=== PATIENT | female | born 1955 | race Caucasian/White ===

== ENCOUNTER → 2017-02-05 | Outpatient (CLI) | payer OTHER ==
[2017-02-05 12:15] LABS: Appearance,Urine Clear (Clear); Bilirubin,Urine Negative (Negative); Glucose,Urine (UA) Negative (Negative); Ketones,Urine Negative (Negative); Leukocyte Esterase,Urine Negative (Negative); Nitrite,Urine Negative (Negative); PH, Urine 5.5 (5.0-8.0); Protein,Urine Negative (Negative); Specific Gravity,Urine 1.006 (1.001-1.035); UA Billing (MACRO vs. MICRO) CHEM; Urobilinogen,Urine <2.0 mg/dL (<2.0)
[2017-02-05 12:22] LABS: CH 28.7; CHCM 31.4; HCT 48.6 % (34.0-46.0); HGB 15.1 gm/dL (11.4-16.0); Hypochromasia Slight; MCH 28.7 pg (25.0-35.0); MCHC 31.2 g/dL (31.0-37.0); MCV 92.1 fL (80.0-100.0); Mean Platelet Volume 6.9; RBC 5.28 m/uL (3.80-5.40); RDW 14.2 % (11.5-15.5)
[2017-02-05 12:42] LABS: ALT 32 U/L (9-52); AST 26 U/L (14-36); Alkaline Phosphatase 108 U/L (38-126); Anion Gap 12 mmol/L; Blood Urea Nitrogen 15 mg/dL (7-17); Calcium 10.3 mg/dL (8.4-10.2); Carbon Dioxide 24 mmol/L (22-30); Chloride 106 mmol/L (98-107); Glucose 96 mg/dL (74-99); Non-African American GFR(MDRD) 50 (>60 ml/min/1.73 sqM); Potassium 5.3 mmol/L (3.5-5.1); Sodium 142 mmol/L (137-145); Total Bilirubin 0.5 mg/dL (0.2-1.3); Total Protein 7.8 g/dL (6.3-8.2)
== END | disposition home or self-care (01) ==
LOC: LABWHC1 10:49
PROVIDERS: ATTEND Orthopaedic Surgery
DX: Z01.812 Encounter for preprocedural laboratory examination (principal)
CPT/HCPCS: 80053; 81003; 85027; 85610; 85730; 87070

== ENCOUNTER 2017-02-20 10:21 | Inpatient (IN) | payer OTHER ==
[2017-02-12 14:25] VITALS: BMI 40.2
[~2017-02-20 10:21] MED LIST: ACETAMINOPHEN TAB 500 MG TAB PO ONE; DEXAMETHASONE SOD PHOSPHATE 10 MG/ML 1 ML VIAL IV ONE; MELOXICAM 7.5 MG TAB PO ONE; MIDAZOLAM 2 MG/2 ML VIAL IV PRN; MORPHINE SULFATE 4 MG/ML SYRINGE IV PRN; ONDANSETRON 4 MG/2 ML VIAL IVP ONE; TRANEXAMIC ACID 1,000 MG in SODIUM CHLORIDE 0.9% 100 ML IVPB ONE; ceFAZolin 2 GM in SODIUM CHLORIDE 0.9% 100 ML IVPB ONE
[2017-02-20] MEDS: LACTATED RINGERS 1,000 ML IV SCH (10:52)
[2017-02-20] MEDS ORDERED: LIDOCAINE 1% 20 ML VIAL (10MG/ML) FOR IV START SQ ONE (10:55)
[2017-02-20] MEDS ORDERED: HYDROmorphone 0.5 MG/0.5 ML SYRINGE IVP PRN ×2 (12:07)
[2017-02-20] MEDS ORDERED: MAGNESIUM HYDROXIDE 2,400 MG/10 ML CUP PO PRN (12:07)
[2017-02-20] MEDS ORDERED: NA PHOS,M-B/NA PHOS,DI-BA 133 ML ENEMA RECTAL PRN (12:07)
[2017-02-20] MEDS ORDERED: ONDANSETRON 4 MG/2 ML VIAL IVP PRN (12:07)
[2017-02-20] MEDS ORDERED: BISACODYL 10 MG SUPP RECTAL PRN (12:07)
[2017-02-20] MEDS ORDERED: hydrOXYzine PAMOATE 25 MG CAP PO PRN (12:07)
[2017-02-20] MEDS ORDERED: NALOXONE 0.4 MG/ML 1 ML VIAL IV PRN (12:07)
[2017-02-20] MEDS ORDERED: DIAZEPAM 5 MG TAB PO PRN ×2 (12:07)
[2017-02-20] MEDS ORDERED: ceFAZolin 3,000 MG in SODIUM CHLORIDE 0.9% IRRIGATIO 3,000 ML IRRIGATION ONE (12:31)
[2017-02-20] MEDS ORDERED: SODIUM CHLORIDE 0.9% 100 ML BAG ONE (12:31)
[2017-02-20] MEDS ORDERED: MIDAZOLAM 2 MG/2 ML VIAL ONE (12:31)
[2017-02-20] MEDS ORDERED: fentaNYL (PF) 50 MCG/ML 2 ML AMP ONE (12:31)
[2017-02-20] MEDS ORDERED: PROPOFOL 10 MG/ML 20 ML VIAL IV ONE (12:31)
[2017-02-20] MEDS ORDERED: LIDOCAINE 1% INJ 10MG/ML (20 ML MDV) ONE (12:31)
[2017-02-20] MEDS ORDERED: TRANEXAMIC ACID 1,000 MG/10 ML VIAL ONE (12:31)
[2017-02-20] MEDS: ROPIVACAINE 246.25 MG, EPINEPHrine 0.5 MG, KETOROLAC 30 MG, cloNIDine HCL/PF 80 MCG, WA... MISCELLANE ONE ×10 (12:40→13:37)
[2017-02-20] MEDS ORDERED: LACTATED RINGERS 1,000 ML IV ONE (13:33)
--- NOTE | 2017-02-20 14:09 | P.OP ---
Date of Procedure: 02/20/17 Preoperative Diagnosis: Severe osteoarthritis right knee Postoperative Diagnosis: Severe osteoarthritis right knee Procedure(s) Performed: Right total knee arthroplasty Implants: Nielson and Nephew Oxinium femoral component size 5, right posterior stabilized Nielson & Nephew Vesta II right nonporous tibial baseplate size 4 Nielson & Nephew size 11 mm Legion XLPE constrained articular insert, size 3-4 Nielson & Nephew Vesta II resurfacing patellar component, 32 mm All components were cemented using Deyvn bone cement.. The articulation is Oxinium on polyethylene. Anesthesia: spinal Surgeon: Berto Kc Cordwood Cutter #1: Yadi Gaitan Estimated Blood Loss (ml): 50 Pathology: other (Bone and cartilage) Condition: stable Disposition: PACU Indications for Procedure: After failure of conservative treatment we discussed the surgical and nonsurgical treatment options at length. Patient wishes to proceed with a total knee arthroplasty. Complications specific to this procedure were discussed at length, including but not limited to infection, bleeding, stiffness , and nerve injury. Patient is aware of all these complications and informed consent was obtained Operative Findings: The operative findings are consistent with severe osteoarthritis of the right knee Description of Procedure: Patient was seen in the preoperative area consent was reviewed and operative site was marked with a skin marker. Patient was then brought to the operating room and given preoperative antibiotics intravenously. A spinal anesthetic was administered by the anesthesia department. A tourniquet was placed on the upper thigh and the lower extremity was prepped and draped in usual sterile fashion. A gram of transexamic acid was given. A universal timeout was then performed which confirmed the patient's name, surgical site, ALLERGIES, and consent. The lower extremity was then exsanguinated and tourniquet was inflated to 250 mmHg. A standard and anterior midline approach to the knee was performed. The skin and subcutaneous tissue was dissected down to the patellar tendon. A medial parapatellar arthrotomy was then performed. The knee was then extended, the patellar was everted, and the knee was again flexed. Anterior horns of both menisci were excised, and a release was performed to the posterior medial aspect of the knee. On gross visual inspection, there was complete loss of articular cartilage in the medial and patellofemoral joint spaces. There was also significant cartilage damage in the lateral compartment. There were multiple periarticular osteophytes which were then removed with a Ronguer. The femoral canal was then opened with the appropriate drill, and the intramedullary femoral cutting guide was then placed and set for 4 of valgus. The distal femoral cutting block was then pinned in place, and the distal femur was then cut. The cutting block was then removed and the cut was checked for flatness. Next, the sizing guide was then placed and set for 3 external rotation based off of the epicondylar axis and Whitesides line. After the femur was sized, the appropriate 4-in-1 cutting block was then pinned in place. The anterior condyles were cut without notching. The posterior and chamfer cuts were performed while protecting the collateral ligaments. The cutting block was then removed, and the femoral canal was plugged with autologous bone. Attention was then directed to the tibia. The remaining ACL was removed with a Ronguer, and the tibia was then gently subluxed forward with a large bent knee retractor. Any remaining menisci was excised. The posterior lateral corner was cauterized in order to cauterize the lateral geniculate artery. The extra medullary tibial cutting guide was then placed, set for the appropriate rotation , slope, and depth of resection. The proximal tibia cutting guide was then pinned in place. Proximal tibia was then cut and sized. Next trials were then placed with the appropriate-sized insert. The knee was able to fully extend and flex to 120 and was stable throughout all range of motion. The knee was then extended, patella everted. Patella was then measured, and then using an osteotomy guide, the patella was cut at the appropriate level. The patella was then measured and drilled and the patella trial was then placed. The knee was then taken through range of motion with the patella trial and the patella tracked normally. The knee was then extended patella trial was then removed and the patella was everted. Knee was then flexed and lug holes were drilled through the femoral trial and the femoral trial was then removed. The tibial was then exposed, and the tibial broach guide was then pinned in place after it was set for the appropriate rotation to allow for the most coverage without overhang. The tibia was then reamed and broached. The cut surfaces of bone were then irrigated with pulsatile lavage. The posterior structures were injected with the ropivacaine solution. The knee was also irrigated with Irrisept solution. The components were then opened, the cement was mixed, and the components were then cemented in place. The cement was allowed to harden with the knee in full extension. While the cement was hardening, the remaining soft tissues were then injected with a ropivacaine solution, which consisted of 246.25 mg of ropivacaine, 0.5 mg of epinephrine, 30 mg of Toradol, 80 g of clonidine, and 48.45 mL of sterile water, for a total of 100 mL of fluid injected. After the cemented hardened. The tourniquet was released, and hemostasis was obtained. A second gram of transexamic acid was given. The knee was again irrigated. The knee was again taken through range of motion and found to be stable throughout all range of motion of 0-130 , and the patella tracked normally. The fascia was then closed with #2 strata fix suture. The subcutaneous tissue was closed with 3-0 Vicryl and 3-0 strata fix. Dermabond glue was used for the skin and placed with the knee in flexion. The patient was placed in a sterile silver Aquasol dressing. Patient was then transferred to recovery room in stable condition. The floral assistant RIOS Doaln was required due the complexity surgery and the need for a skilled surgical lead. She assisted in positioning, draping, retraction, and closure of the wound.
--- NOTE | 2017-02-20 14:54 | XR ---
EXAMINATION TYPE: XR knee limited RT DATE OF EXAM: 02/20/2017 COMPARISON: NONE TECHNIQUE: Two views submitted HISTORY: Post op FINDINGS: There is a prosthetic knee in near anatomic alignment. There is soft tissue edema and emphysema. IMPRESSION: 1. Postoperative change. Appears in near-anatomic alignment
[2017-02-20] MEDS: ceFAZolin 2 GM in SODIUM CHLORIDE 0.9% 100 ML IVPB SCH (17:51)
[2017-02-20] MEDS ORDERED: MAG HYDROX/AL HYDROX/SIMETH 30 ML CUP PO PRN (20:02)
[2017-02-20] MEDS: ASPIRIN 325 MG TAB PO SCH (20:52)
[2017-02-20] MEDS: SENNOSIDES-DOCUSATE SODIUM 1 EACH TAB PO SCH (20:53)
[2017-02-20] MEDS: HYDROcodone/APAP 5-325MG 1 EACH TAB PO PRN (21:29)
[2017-02-21] MEDS: ceFAZolin 2 GM in SODIUM CHLORIDE 0.9% 100 ML IVPB SCH (01:13)
[2017-02-21] MEDS: HYDROcodone/APAP 5-325MG 1 EACH TAB PO PRN ×5 (02:44→21:03)
[2017-02-21] MEDS ORDERED: SODIUM CHLORIDE 0.9% 1,000 ML BAG ONE (03:30)
--- NOTE | 2017-02-21 06:46 | CONS ---
CONSULTATION DATE OF CONSULTATION: 02/20/2017 REASON FOR CONSULTATION: Medical management requested by Dr. Saenz. CONSULTATION: This is a pleasant 61-year-old patient of Dr. Saenz. Has undergone a right total knee arthroplasty. Pain is controlled. No nausea or vomiting. No chest pain. Sitting up. Chronic stable medical conditions include osteoarthritis, hypertension, GERD. REVIEW OF SYSTEMS: CONSTITUTIONAL: None. HEENT: None. RESPIRATORY: None. CARDIOVASCULAR: None. GASTROINTESTINAL: Heartburn. GENITOURINARY: None. MUSCULOSKELETAL: Pain in different joints. DERMATOLOGICAL: None. HEMATOLOGIC: None. LYMPHATIC: None. PSYCHIATRY: None. NEUROLOGICAL: None. PAST MEDICAL HISTORY: GERD, hypertension, osteoarthritis. PAST SURGICAL HISTORY: Tonsillectomy, tubal ligation, ganglion cyst removed. SOCIAL HISTORY: Does not smoke or drink alcohol. Lives with her daughter. FAMILY HISTORY: Family history of stroke, hyperlipidemia. HOME MEDICATIONS: 1. Ultram 25 to 50 mg q.6 p.r.n. 2. Norvasc 10 mg p.o. daily. 3. Flexeril 10 mg p.o. t.i.d. p.r.n. 4. Ibuprofen 800 mg p.o. t.i.d. p.r.n. ALLERGIES: None. PHYSICAL EXAMINATION: On examination, afebrile, pulse 78, blood pressure 120/66, pulse ox 94% on room air, respirations 16. GENERAL APPEARANCE: Well built, BMI 40.2, sitting up, comfortable. EYES: Pupils equal. Conjunctivae normal. HENT: Oral cavity normal. NECK: JVD not raised. Mass not palpable. RESPIRATORY: Effort normal. Lungs are clear. CARDIOVASCULAR: First and second sounds are normal. No edema. ABDOMEN: Soft, nontender. Liver and spleen not palpable. LYMPHATIC: No lymph node palpable of the neck or axillae. PSYCHIATRY: Alert and oriented x3. Mood and affect normal. NEUROLOGICAL: Pupils equal. Cranial nerves grossly intact. Power and sensation grossly intact. EXTREMITIES: Right knee in a dressing. INVESTIGATIONS: Potassium 4.1. ASSESSMENT: 1. Right total knee arthroplasty. 2. Morbid obesity, body mass index 40.2. 3. Gastroesophageal reflux disease. 4. Essential hypertension. 5. Primary osteoarthritis. PLAN: Patient's Norvasc to be resumed. Keep a close eye on the blood pressure. For DVT prophylaxis, patient is on aspirin 325 twice a day per Dr. Saenz. The patient should see a dietitian when she leaves from the hospital. Care was discussed with the patient. Should follow up with Dr. Saenz on discharge. Thank you Dr. Kc. GUILLERMINA / DOMINICK: [id number] /
[2017-02-21 07:40] LABS: Basophils % (A) 0 %; CH 29.9; CHCM 32.5; Eosinophils % (A) 0 %; HDW 2.55; Luc # (Auto) 0.11; Luc % (Auto) 1; Lymphocytes % (A) 7 %; MCH 28.8 pg (25.0-35.0); MCHC 31.1 g/dL (31.0-37.0); MCV 92.6 fL (80.0-100.0); Mean Platelet Volume 7.1; Monocytes # (A) 0.8 k/uL (0-1.0); Monocytes % (A) 6 %; Neutrophils # (A) 11.7 k/uL (1.3-7.7); Neutrophils % (A) 86 %; RBC 4.21 m/uL (3.80-5.40); WBC 13.5 k/uL (3.8-10.6)
[2017-02-21 07:48] LABS: HGB 12.1 gm/dL (11.4-16.0)
[2017-02-21] MEDS: MELOXICAM 7.5 MG TAB PO SCH (08:09)
[2017-02-21] MEDS: ASPIRIN 325 MG TAB PO SCH ×2 (08:09→20:56)
[2017-02-21] MEDS: LACTATED RINGERS 1,000 ML IV SCH (08:10)
[2017-02-21] MEDS: SODIUM CHLORIDE 0.9% 1,000 ML IV SCH ×3 (08:10→20:56)
--- NOTE | 2017-02-21 09:47 | P.PN ---
Subjective Progress Note Date: 02/21/17 This is a pleasant 61-year-old female who is status post right total knee arthroplasty. This is postoperative day #1. Patient is seen and evaluated at bedside with Dr. Berto Kc. Patient does complain of pain to the right knee as expected but states this is tolerable. Patient has not been out of bed with physical therapy yet. Patient has no further complaints. Objective - Vital Signs Vital signs: Vital Signs Temp 97.6 F 02/21/17 07:00 Pulse 78 02/21/17 07:00 Resp 16 02/21/17 01:25 BP 131/75 02/21/17 07:00 Pulse Ox 96 02/21/17 07:00 Intake & Output 02/20/17 02/21/17 02/21/17 18:59 06:59 18:59 Intake Total 1251 1050 Output Total 50 Balance 1201 1050 Intake: IV 1251 Intake, IV Titration 1050 Amount Sodium Chloride 0.9% 1, 1050 000 ml @ 70 mls/hr IV . [id number] CRISTOBAL Rx#:[id number] Output: Estimated Blood Loss 50 Other: # Voids 3 - Exam Vital signs are stable. Patient is in no acute distress and is alert and oriented 3. Calf is soft and nontender. Dressing is clean, dry, and intact. Neurovascular status intact. Patient has full foot and ankle motion. - Labs CBC & Chem 7: 02/21/17 06:46 02/20/17 10:50 Labs: Abnormal Lab Results - Last 24 Hours (Table) 02/21/17 Range/Units 06:46 WBC 13.5 H (3.8-10.6) k/uL Neutrophils # 11.7 H (1.3-7.7) k/uL Assessment and Plan (1) Primary osteoarthritis of right knee Current Visit: Yes Status: Acute Code(s): M17.11 - UNILATERAL PRIMARY OSTEOARTHRITIS, RIGHT KNEE SNOMED Code(s): 978205359 (2) S/P total knee arthroplasty Current Visit: Yes Status: Acute Code(s): Z96.659 - PRESENCE OF UNSPECIFIED ARTIFICIAL KNEE JOINT SNOMED Code(s): 2248818670783 Plan: #1 Continue with routine postoperative care. Leave dressing in place x 7days. #2 Anticoagulation with aspirin. #3 Physical therapy and CPM today. #4 Appreciate input from medicine. #5 Anticipate discharge to rehab Sunday.
--- NOTE | 2017-02-21 12:37 | PN ---
PROGRESS NOTE DATE OF SERVICE: 02/21/2017 PRESENTING COMPLAINT: Right knee surgery. INTERVAL HISTORY: Patient is status post right knee surgery. Having some pain. No nausea or vomiting, did tolerate her breakfast. Did work with physical therapy. No new issues. REVIEW OF SYSTEMS: Done for constitutional, cardiovascular, GI, pulmonary, musculoskeletal; relevant findings as above. CURRENT MEDICATIONS: Reviewed that include aspirin 325 b.i.d. for DVT prophylaxis. PHYSICAL EXAMINATION: Temperature 97.6, pulse 70 respiration 16, blood pressure 131/75, pulse ox 96% on room air. GENERAL APPEARANCE: Sitting up in a chair, comfortable, smiling. EYES: Pupils equal, conjunctivae normal. NECK: JVD not raised. Mass not palpable. Respiratory effort normal. Lungs are clear. CARDIOVASCULAR: First and second sounds normal, no edema. ABDOMEN: Soft, nontender. Liver and spleen not palpable. PSYCHIATRY: Alert and oriented x3. Mood and affect normal. EXTREMITIES: Right knee in a dressing. INVESTIGATIONS: White count 13.5, hemoglobin 12.1. ASSESSMENT: 1. Right total knee arthroplasty. 2. Morbid obesity, body mass index of 40.2. 3. Gastroesophageal reflux disease. 4. Essential hypertension. 5. Primary osteoarthritis. PLAN: The patient is stable. Care was discussed with her. Has slight leukocytosis, likely reactive from surgery. No clinical evidence of infection. Incision is healing well per Surgery. Thank you, Dr. Kc. GUILLERMINA / DOMINICK: [id number] /
[2017-02-21] MEDS: amLODIPine 10 MG TAB PO SCH (14:41)
[2017-02-21] MEDS: SENNOSIDES-DOCUSATE SODIUM 1 EACH TAB PO SCH (20:55)
[2017-02-22] MEDS: HYDROcodone/APAP 5-325MG 1 EACH TAB PO PRN ×4 (05:15→22:03)
[2017-02-22] MEDS: LACTATED RINGERS 1,000 ML IV SCH (06:15)
[2017-02-22] MEDS: SODIUM CHLORIDE 0.9% 1,000 ML IV SCH ×2 (08:28→22:07)
[2017-02-22] MEDS: ASPIRIN 325 MG TAB PO SCH ×2 (08:29→22:03)
[2017-02-22] MEDS: MELOXICAM 7.5 MG TAB PO SCH (08:30)
[2017-02-22] MEDS: amLODIPine 10 MG TAB PO SCH (08:30)
--- NOTE | 2017-02-22 08:51 | P.PN ---
Subjective Progress Note Date: 02/22/17 This is a pleasant 61-year-old female who is status post right total knee arthroplasty. This is postoperative day #2. Patient states she has been up and walking with physical therapy today. Patient states she does have pain to the right knee but this is controlled with her pain medication. Patient complains of a sore throat and mild cough today. Patient denies any fever/ chills, numbness, weakness, tingling. Objective - Vital Signs Vital signs: Vital Signs Temp 97.5 F L 02/22/17 07:00 Pulse 69 02/22/17 07:00 Resp 16 02/22/17 07:00 BP 127/75 02/22/17 07:00 Pulse Ox 97 02/22/17 07:00 Intake & Output 02/21/17 02/22/17 02/22/17 18:59 06:59 18:59 Intake Total 480 200 Balance 480 200 Intake: Oral 480 200 Other: # Voids 2 3 1 - Exam Vital signs are stable. Patient is in no acute distress and is alert and oriented 3. Calf is soft and nontender. Dressing is clean, dry, and intact. Neurovascular status intact. Patient has full foot and ankle motion. - Labs CBC & Chem 7: 02/21/17 06:46 02/20/17 10:50 Assessment and Plan (1) Primary osteoarthritis of right knee Current Visit: Yes Status: Acute Code(s): M17.11 - UNILATERAL PRIMARY OSTEOARTHRITIS, RIGHT KNEE SNOMED Code(s): 193638228 (2) S/P total knee arthroplasty Current Visit: Yes Status: Acute Code(s): Z96.659 - PRESENCE OF UNSPECIFIED ARTIFICIAL KNEE JOINT SNOMED Code(s): 2442797751103 Plan: #1 Continue with routine postoperative care. Leave dressing in place x 7days. #2 Anticoagulation with aspirin. #3 Physical therapy and CPM today. #4 Appreciate input from medicine. #5 Anticipate discharge to rehab Sunday.
--- NOTE | 2017-02-22 19:35 | PN ---
PROGRESS NOTE DATE OF SERVICE: 02/22/2017 PRESENTING COMPLAINT: Right knee surgery. INTERVAL HISTORY: Patient status post right knee surgery. Doing better. Sitting up. A bit of a sore throat. No sputum production. No fever. Did work with physical therapy. REVIEW OF SYSTEMS: Done for constitutional, cardiovascular, GI, pulmonary, musculoskeletal; relevant findings as above. CURRENT MEDICATIONS: Reviewed. PHYSICAL EXAMINATION: Temperature 97.5, pulse 59, respirations 16, blood pressure 127/75, pulse ox 97% room air. GENERAL APPEARANCE: Sitting up comfortable. EYES: Pupils are equal. Conjunctivae normal. NECK: JVD not raised. Mass not palpable. RESPIRATORY: Effort normal. Lungs are clear. CARDIOVASCULAR: First and second sounds normal. No edema. ABDOMEN: Soft, nontender. Liver and spleen not palpable. Right knee in a dressing. INVESTIGATIONS: No blood work from today. ASSESSMENT: 1. Right total knee arthroplasty. 2. Morbid obesity, BMI 40.2. 3. Gastroesophageal reflux disease. 4. Essential hypertension. 5. Primary osteoarthritis. 6. Possibly mild viral laryngitis. PLAN: Patient doing well. Care was discussed with the patient. Told her to do salt water gargle and drink warm liquids like tea and coffee. Clinically patient otherwise doing well. MMODL / IJN: [id number] /
[2017-02-22] MEDS: SENNOSIDES-DOCUSATE SODIUM 1 EACH TAB PO SCH (22:03)
[2017-02-23] MEDS: LACTATED RINGERS 1,000 ML IV SCH (02:15)
[2017-02-23 02:41] VITALS: RESP 16
[2017-02-23] MEDS: HYDROcodone/APAP 5-325MG 1 EACH TAB PO PRN ×2 (06:06→12:39)
[2017-02-23 07:43] LABS: Basophils % (A) 0 %; CH 29.8; Eosinophils # (A) 0.2 k/uL (0-0.7); Eosinophils % (A) 2 %; HDW 2.52; HGB 11.8 gm/dL (11.4-16.0); Luc # (Auto) 0.15; Luc % (Auto) 1; Lymphocytes # (A) 1.6 k/uL (1.0-4.8); Lymphocytes % (A) 15 %; MCH 29.2 pg (25.0-35.0); MCHC 31.2 g/dL (31.0-37.0); MCV 93.6 fL (80.0-100.0); Mean Platelet Volume 7.3; Monocytes # (A) 0.8 k/uL (0-1.0); Monocytes % (A) 8 %; Neutrophils # (A) 8.2 k/uL (1.3-7.7); Neutrophils % (A) 74 %; RBC 4.06 m/uL (3.80-5.40); RDW 15.1 % (11.5-15.5); WBC 11.1 k/uL (3.8-10.6); WBC (Perox) 11.43
[2017-02-23 07:46] VITALS: BP 115/69; PULSE 72; TEMP 97.5
--- NOTE | 2017-02-23 08:17 | P.DS ---
Providers Date of admission: 02/20/17 10:21 Expected date of discharge: 02/23/17 Attending physician: Berto Kc Consults: 02/20/17 12:07 Consult Physician Routine Consulting Provider: Marco Pfeiffer Consult Reason/Comments: medical management Do you want consulting provider notified?: Yes Primary care physician: Porfirio Saenz - Discharge Diagnosis(es) (1) Primary osteoarthritis of right knee Current Visit: Yes Status: Acute (2) S/P total knee arthroplasty Current Visit: Yes Status: Acute Hospital Course: This is a 61-year-old female with known history of degenerative arthritis of the right knee. The patient presents for evaluation. After discussion and consideration patient elects to proceed with total knee arthroplasty. The patient is seen preoperatively by Dr. Kc and cleared for surgery. Patient is admitted to [facility] on 02/20/2017 for total knee arthroplasty. The procedures performed without complication or sequelae. The patient is doing well postoperatively. Labs and vital signs are stable on day of discharge. On day of discharge patient's knee incision is healing well. There is minimal erythema. There is no drainage noted at this time. There is minimal soft tissue swelling to the knee. Patient has full foot and ankle motion without difficulty or pain. Neurovascular status to the right lower extremity is intact. Patient is discharged to rehab in good condition. Please see med rec for accurate list of home medications. Plan - Discharge Summary New Discharge Prescriptions: New Aspirin 325 mg PO BID #60 tab HYDROcodone/APAP 5-325MG [[place] 5-325] 1 - 2 tab PO Q4-6H PRN #90 tab PRN Reason: Pain Sennosides-Docusate Sodium [Senokot-S] 1 tab PO BID #60 tablet No Action traMADol HCL [Ultram] 25 - 50 mg PO Q6HR PRN PRN Reason: Pain Cyclobenzaprine [Flexeril] 10 mg PO TID PRN PRN Reason: Pain amLODIPine [Norvasc] 10 mg PO QAM Ibuprofen 800 mg PO TID PRN PRN Reason: Pain Discharge Medication List Cyclobenzaprine [Flexeril] 10 mg PO TID PRN 02/12/17 [History] Ibuprofen 800 mg PO TID PRN 02/12/17 [History] amLODIPine [Norvasc] 10 mg PO QAM 02/12/17 [History] traMADol HCL [Ultram] 25 - 50 mg PO Q6HR PRN 02/12/17 [History] Aspirin 325 mg PO BID #60 tab 02/23/17 [Rx] HYDROcodone/APAP 5-325MG [[place] 5-325] 1 - 2 tab PO Q4-6H PRN #90 tab 02/23/17 [ Rx] Sennosides-Docusate Sodium [Senokot-S] 1 tab PO BID #60 tablet 02/23/17 [Rx] Follow up Appointment(s)/Referral(s): Berto Kc DO [Doctor of Osteopathic Medicine] - 2 Weeks Ambulatory/Diagnostic Orders: Continuous Passive Motion (CPM) Machine [DME.AMB1] Time Frame: 3 Weeks, Location : Determined By Patient Activity/Diet/Wound Care/Special Instructions: Weightbearing as tolerated with a walker CPM 5-6h daily Leave dressing intact. May be removed by home care nurse on 02/27/2017. May shower with dressing on. [facility] with questions or concerns [phone] Discharge Disposition: TRANSFER TO SNF/ECF
[2017-02-23] MEDS: MELOXICAM 7.5 MG TAB PO SCH (09:03)
[2017-02-23] MEDS: ASPIRIN 325 MG TAB PO SCH (09:03)
[2017-02-23] MEDS: SODIUM CHLORIDE 0.9% 1,000 ML IV SCH (09:04)
[2017-02-23] MEDS: amLODIPine 10 MG TAB PO SCH (09:05)
--- NOTE | 2017-02-23 22:47 | PN ---
PROGRESS NOTE DATE OF SERVICE: 02/23/2017 PRESENT COMPLAINT: Right knee surgery. INTERVAL HISTORY: The patient is status post right knee surgery, stable. Sore throat is improving. No nausea, vomiting. Did work with Physical Therapy. Tolerating a diet. REVIEW OF SYSTEMS: Done for constitutional, cardiovascular, GI, pulmonary, musculoskeletal; relevant findings as above. CURRENT MEDICATIONS: Reviewed. PHYSICAL EXAMINATION: Temperature 97.5, pulse 72, respirations 16, blood pressure 115/69, pulse ox 98% on room air. GENERAL APPEARANCE: Sitting up, comfortable. EYES: Pupils equal. Conjunctivae normal. NECK: JVD not raised. Mass not palpable. RESPIRATORY: Effort normal. Lungs are clear. CARDIOVASCULAR: First and second sounds normal. No edema. ABDOMEN: Soft, nontender. Liver and spleen not palpable. PSYCHIATRY: Alert and oriented x3. Mood and affect are normal. INVESTIGATIONS: White count 11.1, hemoglobin 11.8. ASSESSMENT: 1. Right total knee arthroplasty. 2. Morbid obesity, body mass index of 40.2. 3. Gastroesophageal reflux disease. 4. Essential hypertension. 5. Primary osteoarthritis. 6. Mild viral laryngitis, improving. PLAN: Care was discussed with the patient. Stable for discharge. MMODL / IJN: [id number] /
== END 2017-02-23 12:45 | DRG 470 ==
LOC: 2ORMAIN 10:21 → 3SUR 14:33
PROVIDERS: ADMIT Orthopaedic Surgery; ATTEND Orthopaedic Surgery
PROC: 0SRC0J9 Replacement of Right Knee Joint with Synthetic Substitute, Cemented, Open Approach (ICD-10-PCS; principal; 2017-02-20 12:00)
DX: M17.11 Unilateral primary osteoarthritis, right knee (principal); I10 Essential (primary) hypertension; E66.01 Morbid (severe) obesity due to excess calories; J04.0 Acute laryngitis; B97.89 Other viral agents as the cause of diseases classified elsewhere; K21.9 Gastro-esophageal reflux disease without esophagitis; Z68.41 Body mass index [BMI] 40.0-44.9, adult; Z79.899 Other long term (current) drug therapy; Z82.49 Family history of ischemic heart disease and other diseases of the circulatory system
CPT/HCPCS: 84132; 85025; 88300

== ENCOUNTER 2021-01-09 02:17 | Inpatient (IN) | payer MEDICARE, OTHER ==
[2021-01-09] MEDS ORDERED: IV FLUID CONTINUATION 1,000 ML IV ONE (02:20)
[2021-01-09] MEDS ORDERED: HEPARIN SODIUM 1,000 UN/ML (10ML VL) ONE (02:24)
[2021-01-09] MEDS ORDERED: LIDOCAINE 1% INJ 10MG/ML (20 ML MDV) ONE (02:24)
[2021-01-09] MEDS ORDERED: LIDOCAINE 1% INJ 10MG/ML (20 ML MDV) SQ ONE (02:26)
[2021-01-09] MEDS ORDERED: MIDAZOLAM 2 MG/2 ML VIAL IV ONE (02:27)
[2021-01-09] MEDS: NITROGLYCERIN 1000MCG/10ML SYRINGE INTRACORON ONE ×2 (02:40→02:51)
[2021-01-09] MEDS ORDERED: niCARdipine 25 MG/10 ML VIAL ONE (02:47)
[2021-01-09] MEDS ORDERED: CLOPIDOGREL 75 MG TAB ONE (02:50)
[2021-01-09] MEDS: niCARdipine Syringe (1,000 mcg/10 mL) INTRACORON ONE ×2 (02:51→03:03)
[2021-01-09] MEDS ORDERED: CLOPIDOGREL 75 MG TAB PO ONE (02:51)
[2021-01-09] MEDS ORDERED: ATROPINE SULFATE 0.1 MG/ML 10ML SYRINGE IV ONE (03:01)
[2021-01-09] MEDS ORDERED: IOPAMIDOL-370 125ML BTL INJ ONE (03:04)
[2021-01-09] MEDS ORDERED: RX INFO: IV CONTRAST WAS GIVEN 1 EACH MISC MISCELLANE PRN (03:11)
[2021-01-09] MEDS ORDERED: MAG HYDROX/AL HYDROX/SIMETH 30 ML CUP PO PRN (03:11)
[2021-01-09] MEDS ORDERED: NITROGLYCERIN SL TABS 0.4 MG TAB SUBLINGUAL PRN (03:11)
[2021-01-09] MEDS ORDERED: ZOLPIDEM 5 MG TAB PO PRN (03:11)
[2021-01-09] MEDS ORDERED: ATROPINE SULFATE 0.1 MG/ML 10ML SYRINGE IV PRN (03:11)
[2021-01-09] MEDS ORDERED: SODIUM CHLORIDE 0.9% 1,000 ML IV SCH (03:15)
--- NOTE | 2021-01-09 03:16 | P.CRDCN ---
History of Present Illness Consult date: 01/09/21 Chief complaint: Chest pain History of present illness: This is a very pleasant 65-year-old female patient with a past medical history significant for hypertension and dyslipidemia who presented initially to [facility] with a chest discomfort started 2 hours before and was diagnosed with acute inferior ST elevation myocardial infarction. Subsequently the patient was transferred to [facility] where she underwent an em ergent heart catheterization and was found to have mild disease involving the left coronary system with subtotally occluded distal right coronary artery. She underwent successful stenting of the right coronary artery using two drug- eluting stents with a good angiographic results. The patient was chest pain- free by the end of the procedure with minimal ST segment deviation. The patient does have risk factors including hypertension and dyslipidemia. She has history of smoking in the past but she quit long time ago. No family history of premature CAD. The procedure was performed from the right groin. The patient is going to be admitted to the intensive care unit and she will be on dual antiplatelet therapy along with high intensity statin. Beta josseline would be on hold at this point in view of the bradycardia with a resting heart rate in the 50s. She will be started on small dose of DAMARIS inhibitor as well in view of the margin the low blood pressure. An echocardiogram would be performed as well to assess LV function. We'll continue following up with the patient. Past Medical History Past Medical History: GERD/Reflux, Hypertension, Skin Disorder Additional Past Medical History / Comment(s): digenerative disc disease,HR skips a beat occas,blisterlike areas scattered that itch. History of Any Multi-Drug Resistant Organisms: None Reported Past Surgical History: Tonsillectomy, Tubal Ligation Additional Past Surgical History / Comment(s): ganglion cyst removed lt hand Past Anesthesia/Blood Transfusion Reactions: No Reported Reaction Additional Past Anesthesia/Blood Transfusion Reaction / Comment(s): no hx blood transfusion Past Psychological History: No Psychological Hx Reported Past Alcohol Use History: None Reported Past Drug Use History: None Reported - Past Family History Mother Family Medical History: CVA/TIA, Hyperlipidemia Father Family Medical History: No Reported History Medications and Allergies Home Medications Medication Instructions Recorded Confirmed Type Cyclobenzaprine [Flexeril] 10 mg PO TID PRN 02/12/17 02/20/17 History Ibuprofen 800 mg PO TID PRN 02/12/17 02/20/17 History amLODIPine [Norvasc] 10 mg PO QAM 02/12/17 02/20/17 History traMADol HCL [Ultram] 25 - 50 mg PO Q6HR PRN 02/12/17 02/20/17 History Aspirin 325 mg PO BID #60 tab 02/23/17 Rx HYDROcodone/APAP 5-325MG [[place] 1 - 2 tab PO Q4-6H PRN #90 tab 02/23/17 Rx 5-325] Sennosides-Docusate Sodium 1 tab PO BID #60 tablet 02/23/17 Rx [Senokot-S] Allergies Allergy/AdvReac Type Severity Reaction Status Date / Time No Known Allergies Allergy Verified 02/12/17 13:56 Physical Exam Vitals: Intake and Output 01/08/21 01/08/21 01/09/21 14:59 22:59 06:59 Intake Total 500 Balance 500 Intake: IV 500 Other: Weight 106.594 kg - Constitutional General appearance: no acute distress - Respiratory Respiratory: bilateral: CTA - Cardiovascular Rhythm: regular Heart sounds: normal: S1, S2 Abnormal Heart Sounds: systolic murmur Results Intake and Output 01/08/21 01/08/21 01/09/21 14:59 22:59 06:59 Intake Total 500 Balance 500 Intake: IV 500 Other: Weight 106.594 kg Patient Weight 01/09/21 06:59 Weight 106.594 kg Assessment and Plan Assessment: Assessment #[address] elevation myocardial infarction #2 status post PCI of the RCA #3 hypertension #4 dyslipidemia Plan #1 the patient will be admitted to intensive care unit #2 dual antiplatelet therapy #3 high intensity statin #4 an echocardiogram #5 standard groin care #6 follow-up with the patient
[2021-01-09 03:38] LABS: Glucose,Whole Blood 126 mg/dL (75-99)
--- NOTE | 2021-01-09 08:19 | CC ---
CARDIAC CATHETERIZATION REPORT DATE OF SERVICE: January 09, 2021. PERFORMING PHYSICIAN: Ten Jauregui MD. PROCEDURE PERFORMED: 1. Selective right and left coronary angiogram. 2. Left heart catheterization. 3. Successful stenting of the distal right coronary artery using 3.5 x 23 and 3.0 x 15 mm Xience drug-eluting stent with an excellent angiographic results. 4. Aspiration thrombectomy from the right coronary artery. 5. Selective right common femoral artery angiogram. 6. Hemostasis of the right groin using the Angio-Seal device. INDICATION: This is a 65-year-old female patient who sees Dr. Martinez in the office regularly with history of hypertension and dyslipidemia who was brought to the hospital with chest discomfort and was diagnosed with acute inferior ST-elevation myocardial infarction. COMPLICATION: None. LEVEL OF SEDATION: Moderate with sedation length of 40 minutes. Door to door to balloon was 82 minutes. APPROACH: Right common femoral artery. PROCEDURE DESCRIPTION: After obtaining informed consent, the patient was brought to the cardiac pathology laboratory aide. The right common femoral artery was cannulated using micropuncture technique, the micropuncture wire passed easily. Then I placed a 6-Romanian sheath 11 cm at the right common femoral artery. Selective left and right coronary angiogram achieved with JL4 diagnostic catheter and JR4 guiding catheter. After that I did left heart catheterization using the JR4 catheter which crossed the aortic valve then I did pullback across the valve. After that, I did intervene on the right coronary artery. Please see a separate paragraph for that. SELECTIVE CORONARY ANGIOGRAM: 1. The left main is angiographically normal. It bifurcates into LCX and LAD. 2. The LCX is a large caliber vessel. It is a nondominant vessel. The LCX is angiographically normal and gives rise into a large OM branch which appeared to be angiographically normal. 3. The LAD: The proximal LAD is angiographically normal. The mid LAD is normal and gives rise into a large diagonal branch which bifurcates into 2 subtle branches and appeared to be angiographically normal. The LAD distally is normal and becomes tortuous. 4. The right coronary artery has a critical lesion distally appeared to be in the range of 99.9%. HEMODYNAMICS: The LVEDP was 21 mmHg without significant gradient across aortic valve. PCI OF THE RCA: Anticoagulation was achieved using heparin with continuous ACT monitoring throughout the procedure. After that, I did engage the RCA using JR4 guide. I did wire it using a run-through wire. Balloon angioplasty initially achieved using 3.0 x 15 mm balloon. Subsequently, I deployed 3.5 x 23 mm Xience drug-eluting stent where the stent was positioned under fluoroscopy guidance and deployed under its nominal pressure. The following angiogram showed an area distal to the stent seems to be tight and I decided to cover that with a stent. So I deployed the 3.0 x 15 mm Xience drug-eluting stent just distal to the first stent with about 2 mm overlap between the 2 stents. The second stent was deployed under its nominal pressure as well. Then the area of overlap between the 2 stents was dilated using the stent balloon. The following angiogram showed sluggish flow in the RCA with about DEBI 2 to DEBI 1 flow. There was some concerning thrombus there and because of that I decided to do aspiration thrombectomy. I did use the export catheter and I was able to advance the catheter all the way to the distal right coronary artery and I did 1 run of aspiration thrombectomy and I was able to extract some white thrombus. I gave nicardipine as well and with that the flow was better. After that, I post dilated the first stent using 4.0 mm stent. The final angiogram showed good angiographic results and the procedure was completed without any complication. CONCLUSION: 1. Acute inferoposterior ST-elevation myocardial infarction. 2. Critical disease involving the distal right coronary artery, successful stenting of the distal right coronary artery was performed with good angiographic results. 3. Mild disease involving the left coronary system. 4. Elevated LVEDP. POSTPROCEDURE MANAGEMENT: 1. Dual anti-platelet therapy. 2. High intensity statin. 3. Hold on beta josseline because of the bradycardia. 4. An echocardiogram to establish LV function. 5. ICU admission. 6. Follow up with the patient. MMODL / IJN: [id number] /
[2021-01-09] MEDS: ASPIRIN 81 MG PO SCH (09:35)
[2021-01-09 10:31] LABS: Basophils # (A) 0.1 k/uL (0-0.2); Basophils % (A) 0 %; Eosinophils # (A) 0.1 k/uL (0-0.7); Eosinophils % (A) 1 %; HCT 43.1 % (34.0-46.0); HGB 14.5 gm/dL (11.4-16.0); Lymphocytes # (A) 0.9 k/uL (1.0-4.8); Lymphocytes % (A) 7 %; MCHC 33.6 g/dL (31.0-37.0); MCV 89.4 fL (80.0-100.0); Mean Platelet Volume 7.3; Monocytes # (A) 0.6 k/uL (0-1.0); Monocytes % (A) 5 %; Neutrophils # (A) 10.6 k/uL (1.3-7.7); Neutrophils % (A) 86 %; Platelet Count 258 k/uL (150-450); RBC 4.83 m/uL (3.80-5.40); WBC 12.4 k/uL (3.8-10.6)
[2021-01-09 10:32] LABS: African American GFR (CKD) >90 (>60 ml/min/1.73 sqM); Anion Gap 7 mmol/L; Blood Urea Nitrogen 17 mg/dL (7-17); Calcium 9.3 mg/dL (8.4-10.2); Carbon Dioxide 26 mmol/L (22-30); Chloride 100 mmol/L (98-107); Glucose 123 mg/dL (74-99); Magnesium 2.3 mg/dL (1.6-2.3); Non-African American GFR(CKD) 85 (>60 ml/min/1.73 sqM); Potassium 4.2 mmol/L (3.5-5.1); Sodium 133 mmol/L (137-145)
[2021-01-09] MEDS ORDERED: ATORVASTATIN 80 MG TAB PO SCH (21:00)
[2021-01-10 04:00] LABS: HCT 37.3 % (34.0-46.0); MCH 30.9 pg (25.0-35.0); MCHC 34.7 g/dL (31.0-37.0); Mean Platelet Volume 7.3; Platelet Count 229 k/uL (150-450)
[2021-01-10 04:06] LABS: Total Bilirubin 0.6 mg/dL (0.2-1.3)
[2021-01-10 04:19] LABS: Albumin 3.3 g/dL (3.5-5.0); Potassium 4.3 mmol/L (3.5-5.1)
--- NOTE | 2021-01-10 07:55 | P.PN ---
Subjective Progress Note Date: 01/10/21 Principal diagnosis: Acute coronary syndrome This is a pleasant 65-year-old female patient who was brought to the hospital with a chest discomfort and acute inferior ST patient myocardial infarction but she underwent an emergent heart catheterization and stenting of the RCA. She was found to have mild disease involving the left coronary system. The patient was seen today. She is asymptomatic from a cardiovascular standpoint. She has been maintaining sinus rhythm with sinus bradycardia and heart rate in the 50s. She is not on any AV mk josseline agent. The right groin is soft and nontender and without any bruises. Blood work was reviewed and showed mildly elevated liver function test and for that reason I'm going to decrease the dose of atorvastatin from 80 mg daily to 40 mg by mouth daily. The echocardiogram still pending. From the cardiac standpoint of view, the patient can be transferred to selective unit for possible discharge in the next 24 hours. Objective - Vital Signs Vital signs: Vital Signs Temp 97.8 F 01/10/21 04:00 Pulse 54 L 01/10/21 06:00 Resp 24 01/10/21 06:00 BP 112/62 01/10/21 06:00 Pulse Ox 95 01/10/21 06:00 Intake & Output 01/09/21 01/10/21 01/10/21 18:59 06:59 18:59 Intake Total 825 0 Output Total 0 300 Balance 825 -300 Weight 111.4 kg Intake: IV 225 Sodium Chloride 0.9% 1, 225 000 ml @ 75 mls/hr IV . [id number] [facility] Rx#:[id number] Oral 600 0 Output: Urine 0 300 Other: # Voids 1 - Constitutional General appearance: Present: no acute distress - Respiratory Respiratory: bilateral: CTA - Cardiovascular Rhythm: regular Heart sounds: normal: S1, S2 - Labs CBC & Chem 7: 01/10/21 03:11 01/10/21 03:11 Labs: Abnormal Lab Results - Last 24 Hours (Table) 01/09/21 01/09/21 01/10/21 Range/Units 10:01 10:01 03:11 WBC 12.4 H (3.8-10.6) k/uL Neutrophils # 10.6 H (1.3-7.7) k/uL Lymphocytes # 0.9 L (1.0-4.8) k/uL Sodium 133 L 129 L (137-145) mmol/L BUN 21 H (7-17) mg/dL Glucose 123 H 103 H (74-99) mg/dL AST 259 H (14-36) U/L ALT 41 H (4-34) U/L Total Protein 6.0 L (6.3-8.2) g/dL Albumin 3.3 L (3.5-5.0) g/dL Assessment and Plan Assessment: Assessment #[address] elevation myocardial infarction #2 status post PCI of the RCA #3 hypertension #4 dyslipidemia Plan #1 continue dual antiplatelet therapy #2 continue holding any AV mk josseline agents in view of the bradycardia #3 decrease the dose of atorvastatin to 40 mg by mouth daily #4 monitor the liver function test #5 follow-up on the echo #6 elevation in the next 24 hours
[2021-01-10] MEDS: ASPIRIN 81 MG PO SCH (08:53)
[2021-01-10] MEDS: CLOPIDOGREL 75 MG TAB PO SCH (08:53)
[2021-01-10 08:56] LABS: ALT 38 U/L (4-34); AST 240 U/L (14-36)
[2021-01-10] MEDS: APIXABAN 5 MG TAB PO SCH ×2 (11:07→20:59)
[2021-01-10 12:24] VITALS: BMI 38.5
[2021-01-10 16:18] VITALS: RESP 16
--- NOTE | 2021-01-10 17:12 | P.HPIM ---
History of Present Illness H&P Date: 01/10/21 Chief Complaint: Chest discomfort Patient is a 65-year-old female with a known history of hypertension, GERD, history of CVA currently on Eliquis, degenerative disc disease initially presented to [facility] due to complaints of sore throat like feeling and chest discomfort. Patient was found have acute inferior ST elevated AK and subsequently transferred to [facility] which she underwent emergent cardiac catheterization. Patient was found have mild disease involving the left coronary system was subtotally occluded distal right coronary artery wi th successful stenting of the right coronary artery. Patient is currently being monitored in the MICU. Currently patient denied any complaints of chest pain or shortness of breath. No headache or dizziness or lightheadedness. Patient is being continued on dual antiplatelet agents and beta blockers on hold due to bradycardia with heart rate in upper 40s. Patient denied any recent illnesses. No cough or sputum production. No fever no chills. No leg swelling. Denied any exertional dyspnea. Laboratory data showed WBC 12.4 hemoglobin 14.5 and platelets 258 Sodium 133 potassium 4.2 chloride 100 bicarb 26 BUN 17 and creatinine 0.74 AST 229 ALT 49 alk phos 72. Patient denied any alcohol use. Review of Systems Constitutional: Patient denies any fever or chills . No generalized weakness or weight loss. Abdomen: Patient denied nausea vomiting and diarrhea and abdominal pain. Cardiovascular: Patient denies any chest pain or short of breath no palpitations. Respiratory: patient denied any cough is from production. No shortness of breath Neurologic: Patient denied any numbness or tingling headache. Musculoskeletal: Patient denies any complaints of joint swelling or deformity. Skin: Negative Psychiatric: Negative Endocrine: No heat or cold intolerance. No recent weight gain. Genitourinary: No dysuria or hematuria. All other 14 point ROS negative except the above Past Medical History Past Medical History: CVA/TIA, GERD/Reflux, Hypertension, Myocardial Infarction (AK), Skin Disorder Additional Past Medical History / Comment(s): digenerative disc disease,HR skips a beat occas,blisterlike areas scattered that itch. CVA 06/2020 Last Myocardial Infarction Date:: 01/09/21 History of Any Multi-Drug Resistant Organisms: None Reported Past Surgical History: Tonsillectomy, Tubal Ligation Additional Past Surgical History / Comment(s): ganglion cyst removed lt hand, Right total knee Past Anesthesia/Blood Transfusion Reactions: No Reported Reaction Additional Past Anesthesia/Blood Transfusion Reaction / Comment(s): no hx blood transfusion Past Psychological History: No Psychological Hx Reported Smoking Status: Former smoker Past Alcohol Use History: None Reported Past Drug Use History: None Reported - Past Family History Mother Family Medical History: CVA/TIA, Hyperlipidemia Father Family Medical History: No Reported History Medications and Allergies Home Medications Medication Instructions Recorded Confirmed Type amLODIPine [Norvasc] 10 mg PO DAILY 02/12/17 01/09/21 History Apixaban [Eliquis] 5 mg PO BID 01/09/21 01/09/21 History Atorvastatin Calcium [Lipitor] 40 mg PO HS 01/09/21 01/09/21 History Cyanocobalamin (Vitamin B-12) 1,000 mcg DAILY 01/09/21 01/09/21 History [Vitamin B-12] Potassium Chloride ER [K-Dur 10] 10 meq PO DAILY 01/09/21 01/09/21 History hydroCHLOROthiazide 25 mg PO DAILY 01/09/21 01/09/21 History Allergies Allergy/AdvReac Type Severity Reaction Status Date / Time No Known Allergies Allergy Verified 02/12/17 13:56 Physical Exam Vitals: Vital Signs Temp Pulse Resp BP Pulse Ox 01/10/21 08:00 98.4 F 55 L 16 103/66 95 01/10/21 06:00 54 L 24 112/62 95 01/10/21 05:00 48 L 14 110/62 95 01/10/21 04:00 97.8 F 50 L 10 L 108/58 92 L 01/10/21 03:00 46 L 15 110/61 89 L 01/10/21 02:00 46 L 15 109/60 95 01/10/21 01:00 49 L 16 109/60 95 01/10/21 00:04 43 L 16 109/60 92 L 01/10/21 00:00 98.4 F 48 L 16 113/65 95 01/09/21 23:00 50 L 17 117/61 01/09/21 22:00 51 L 13 110/59 96 01/09/21 21:00 47 L 16 113/97 95 01/09/21 20:00 98.2 F 47 L 16 105/77 96 01/09/21 19:00 46 L 16 114/66 01/09/21 18:00 48 L 16 108/70 01/09/21 17:00 54 L 16 110/73 01/09/21 16:00 98.7 F 40 L 16 113/62 95 01/09/21 15:00 43 L 17 111/57 95 01/09/21 14:00 63 17 96/65 01/09/21 13:00 51 L 16 96/58 01/09/21 12:00 97.5 F L 49 L 16 95/55 97 01/09/21 11:00 45 L 16 102/70 Intake and Output 01/09/21 01/10/21 01/10/21 22:59 06:59 14:59 Intake Total 240 0 240 Output Total 100 200 Balance 140 -200 240 Intake: Oral 240 0 240 Output: Urine 100 200 Other: # Voids 1 1 Weight 111.4 kg PHYSICAL EXAMINATION: Patient is lying in the bed comfortably, no acute distress, awake alert and oriented.. HEENT: Normocephalic. Neck is supple. Pupils reactive. Nostrils clear. Oral cavity is moist. Neck reveals no JVD, carotid bruits, or thyromegaly. CHEST EXAMINATION: Trachea is central. Symmetrical expansion. Lung craven clear to auscultation and percussion. CARDIAC: Normal S1, S2 with no gallops. No murmurs ABDOMEN: Soft. Bowel sounds normal. No organomegaly. No abdominal bruits. Extremities: reveal no edema. No clubbing or cyanosis Neurologically awake, alert, oriented x3 with well-coordinated movements. No focal deficits noted Skin: No rash or skin lesions. Psychiatric: Coperative. Nonsuicidal Musculoskeletal: No joint swelling or deformity. Normal range of motion. Results CBC & Chem 7: 01/10/21 03:11 01/10/21 03:11 Labs: Abnormal Lab Results - Last 24 Hours (Table) 01/09/21 01/09/21 01/10/21 Range/Units 10:01 10:01 03:11 WBC 12.4 H (3.8-10.6) k/uL Neutrophils # 10.6 H (1.3-7.7) k/uL Lymphocytes # 0.9 L (1.0-4.8) k/uL Sodium 133 L 129 L (137-145) mmol/L BUN 21 H (7-17) mg/dL Glucose 123 H 103 H (74-99) mg/dL AST 259 H (14-36) U/L ALT 41 H (4-34) U/L Total Protein 6.0 L (6.3-8.2) g/dL Albumin 3.3 L (3.5-5.0) g/dL 01/10/21 Range/Units 08:09 WBC (3.8-10.6) k/uL Neutrophils # (1.3-7.7) k/uL Lymphocytes # (1.0-4.8) k/uL Sodium (137-145) mmol/L BUN (7-17) mg/dL Glucose (74-99) mg/dL AST 240 H (14-36) U/L ALT 38 H (4-34) U/L Total Protein (6.3-8.2) g/dL Albumin (3.5-5.0) g/dL Thrombosis Risk Factor Assmnt - DVT/VTE Prophylaxis DVT/VTE Prophylaxis: Pharmacologic Prophylaxis ordered - Choose All That Apply Any of the Below Risk Factors Present?: Yes Each Factor Represents 1 point: Acute AK, Medical pt on bed rest, Obesity (BMI >25) Each Risk Factor Represents 2 Points: Age 61-74 years Thrombosis Risk Factor Assessment Total Risk Factor Score: 5 Thrombosis Risk Factor Assessment Level: High Risk Assessment and Plan Assessment: Acute inferior ST elevated AK status post stenting to right RCA 2. Hypertension Hyperlipidemia History of CVA currently on anticoagulation with Eliquis or stroke prophylaxis Mild hypovolemic hyponatremia Elevated liver enzymes AST greater than ALT Leukocytosis is likely reactive, improved now. Obesity with BMI 38.5 Plan: Patient will be continued on telemetry monitoring. Continue with aspirin, Plavix and statins. Patient was previously on Eliquis for stroke prophylaxis as per patient. Cardiology is on board. Monitoring liver enzymes. Patient denied any alcohol use. Continue to follow closely. Time with Patient: Greater than 30
[2021-01-10] MEDS ORDERED: ATORVASTATIN 40 MG TAB PO SCH (21:00)
[2021-01-11 07:32] VITALS: TEMP 97.7
[2021-01-11] MEDS: CLOPIDOGREL 75 MG TAB PO SCH (08:24)
[2021-01-11] MEDS: APIXABAN 5 MG TAB PO SCH (08:24)
[2021-01-11] MEDS: ASPIRIN 81 MG PO SCH (08:24)
[2021-01-11 09:54] LABS: Basophils % (A) 0 %; Eosinophils # (A) 0.1 k/uL (0-0.7); Eosinophils % (A) 1 %; HGB 13.6 gm/dL (11.4-16.0); Lymphocytes # (A) 1.1 k/uL (1.0-4.8); Lymphocytes % (A) 13 %; MCHC 33.1 g/dL (31.0-37.0); MCV 90.4 fL (80.0-100.0); Mean Platelet Volume 7.8; Monocytes # (A) 0.7 k/uL (0-1.0); Monocytes % (A) 9 %; Neutrophils # (A) 6.3 k/uL (1.3-7.7); Neutrophils % (A) 76 %; Platelet Count 219 k/uL (150-450); RBC 4.53 m/uL (3.80-5.40); RDW 15.2 % (11.5-15.5); WBC 8.3 k/uL (3.8-10.6)
[2021-01-11 10:13] LABS: Albumin 3.7 g/dL (3.5-5.0); Calcium 9.6 mg/dL (8.4-10.2); Potassium 4.1 mmol/L (3.5-5.1); Total Bilirubin 0.7 mg/dL (0.2-1.3); Total Protein 6.5 g/dL (6.3-8.2)
--- NOTE | 2021-01-11 10:38 | P.PN ---
Subjective This is a pleasant 65-year-old female who presented to the hospital with an acute inferior ST elevated myocardial infarction and is status post aspiration thrombectomy and PCI to the distal RCA, paroxysmal atrial fibrillation maintained on Eliquis, newly diagnosed PFO and CVA. She is seen and examined sitting up in bed in no acute distress. She denies symptoms of chest discomfort, shortness of breath, dizziness or palpitations. Blood pressure 95/65 heart rate 58 afebrile maintaining oxygen saturation on room air. Telemetry tracings reveal she is maintaining sinus rhythm with sinus bradycardia. No significant pauses. Echocardiogram has been obtained and will be reviewed. Daily labs pending. GENERAL: Well-appearing, well-nourished and in no acute distress. NECK: Supple without JVD or thyromegaly. LUNGS: Breath sounds clear to auscultation bilaterally. Respiration equal and unlabored. No wheezes, rales or rhonchi. HEART: Regular rate and rhythm with systolic murmur at the base, no rubs or gallops. S1 and S2 heard. EXTREMITIES: Normal range of motion, no edema. No clubbing or cyanosis. Peripheral pulses intact. ASSESSMENT Acute inferior ST elevated myocardial infarction Transaminitis Sinus bradycardia PLAN No beta josseline secondary to bradycardia. No DAMARIS/ARB due to low blood pressures. Increase activity and ambulation. She is stable from a cardiac perspective. Pending her echo results she can likely be discharged home today on triple therapy for 1-month. Follow up with Dr. Martinez in the office next week. Nurse Practitioner note has been reviewed, I agree with a documented findings and plan of care. Patient was seen and examined. Objective - Vital Signs Vital signs: Vital Signs Temp 97.7 F 01/11/21 07:27 Pulse 57 L 01/11/21 07:33 Resp 16 01/11/21 07:33 BP 95/65 01/11/21 07:27 Pulse Ox 93 L 01/11/21 07:27 Intake & Output 01/10/21 01/11/21 01/11/21 18:59 06:59 18:59 Intake Total 720 Balance 720 Weight 111.4 kg 111.2 kg Intake: Oral 720 Other: # Voids 1 1 # Bowel Movements 1 - Labs CBC & Chem 7: 01/11/21 08:56 01/11/21 08:56 Labs: Abnormal Lab Results - Last 24 Hours (Table) 01/10/21 Range/Units 08:09 AST 240 H (14-36) U/L ALT 38 H (4-34) U/L
[2021-01-11 11:28] VITALS: BP 99/63; PULSE 58
--- NOTE | 2021-01-11 11:37 | ECHOF ---
Referral Reason:STEMI MEASUREMENTS -------- HEIGHT: 170.2 cm WEIGHT: 111.1 kg BP: 103/66 RVIDd: 3.3 cm (< 3.3) IVSd: 1.3 cm (0.6 - 1.1) LVIDd: 5.1 cm (3.9 - 5.3) LVPWd: 1.2 cm (0.6 - 1.1) IVSs: 1.5 cm LVIDs: 4.0 cm LVPWs: 1.5 cm LAESV Index (A-L): 40.29 ml/m Ao Diam: 3.0 cm (2.0 - 3.7) AV Cusp: 2.0 cm (1.5 - 2.6) LA Diam: 2.7 cm (2.7 - 3.8) MV EXCURSION: 19.604 mm (> 18.000) MV EF SLOPE: 93 mm/s (70 - 150) EPSS: 1.8 cm MV E Davi: 0.99 m/s MV DecT: 188 ms MV A Davi: 0.36 m/s MV E/A Ratio: 2.73 FINDINGS -------- Sinus rhythm. This was a technically difficult study with suboptimal views. The left ventricular size is normal. There is mild concentric left ventricular hypertrophy. There is moderate global hypokinesis of LV . Overall left ventricular systolic function is moderately im paired with, an EF between 35 - 40 %. The right ventricle is mildly enlarged. LA is moderately dilated 34-39 ml/m2 The right atrium was not well visualized. 5.0mg of Lumason was utilized for enhancement of images Interatrial and interventricular septum intact. Trace amount of aortic regurgitation. There is no evidence of aortic stenosis. [id number]-rz-[id number] mitral regurgitation is present. Mild tricuspid regurgitation present. Unable to estimate RVSP due to inadequate TR jet spectral dop pler profile. There is no pulmonic regurgitation present. The aortic root size is normal. The inferior vena cava is mildly dilated. There is a trivial pericardial effusion present. CONCLUSIONS -------- 1. The left ventricular size is normal. 2. There is mild concentric left ventricular hypertrophy. 3. There is moderate global hypokinesis of LV . 4. Overall left ventricular systolic function is moderately impaired with, an EF between 35 - 40 %. 5. The right ventricle is mildly enlarged. 6. LA is moderately dilated 34-39 ml/m2 7. Trace amount of aortic regurgitation. 8. Csqv-[id number] mitral regurgitation is present. 9. Mild tricuspid regurgitation present. 10. The inferior vena cava is mildly dilated. 11. There is a trivial pericardial effusion present. [employer]: Sarah Hutchins RDCS
--- NOTE | 2021-01-12 22:53 | P.DS ---
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 Patient was found have acute inferior ST elevated [place] and subsequently transferred to [facility] which she underwent emergent cardiac catheterization. Patient was found have mild disease involving the left coronary system was subtotally occluded distal right coronary artery with successful stenting of the right coronary artery. Patient is currently being monitored in the MICU. Currently patient denied any complaints of chest pain or shortness of breath. No headache or dizziness or lightheadedness. Patient is being continued on dual antiplatelet agents and beta blockers on hold due to bradycardia with heart rate in upper 40s. Patient denied any recent illnesses. No cough or sputum production. No fever no chills. No leg swelling. Denied any exertional dyspnea. Laboratory data showed WBC 12.4 hemoglobin 14.5 and platelets 258 Sodium 133 potassium 4.2 chloride 100 bicarb 26 BUN 17 and creatinine 0.74 AST 229 ALT 49 alk phos 72. Patient denied any alcohol use. January 11: Stable. No chest pain. A bit tired. No shortness of breath. Bec ause of low heart rate. Beta josseline because of low blood pressure no GERD. Patient's cleared by currently. Care was discussed with the patient. Questions answered. Repeat CMP as outpatient and follow up with Dr. Dee Consultation: [facility] On examination: 97.7, 58, 16, 99/63, 97% room air Gen. appearance: Comfortable Cardiovascular: First second sounds normal, no edema Respiratory: Lungs clear Psychiatry: AO 3 with mood and affect normal INVESTIGATIONS, reviewed in the clinical context: White count 8.3 hemoglobin 13.6 platelets 219 potassium 4.1 creatinine 0.81 AST 139 ALT 36 2-D echo: Moderate global hypokinesis EF 35-40% and pzot-vi-atxbfybi MR. Cardiac catheterization: See cardiology report Assessment Acute inferior ST elevated [place] status post stenting to right RCA 2. Essential Hypertension. Currently blood pressure running on the lower side Hyperlipidemia History of CVA currently on anticoagulation with Eliquis or stroke prophylaxis Mild hypovolemic hyponatremia Possibly ischemic hepatitis Leukocytosis is likely reactive, secondary to VT Obesity with BMI 38.5 Disposition: Home Labs: CMP: 1 week Plan - Discharge Summary New Discharge Prescriptions: New Aspirin 81 mg PO DAILY Clopidogrel [Plavix] 75 mg PO DAILY #90 tab Nitroglycerin Sl Tabs [Nitrostat] 0.4 mg SUBLINGUAL Q5M PRN #30 tab PRN Reason: Chest Pain Continue Atorvastatin Calcium [Lipitor] 40 mg PO HS Apixaban [Eliquis] 5 mg PO BID Cyanocobalamin (Vitamin B-12) [Vitamin B-12] 1,000 mcg DAILY Discontinued amLODIPine [Norvasc] 10 mg PO DAILY Potassium Chloride ER [K-Dur 10] 10 meq PO DAILY hydroCHLOROthiazide 25 mg PO DAILY Discharge Medication List Apixaban [Eliquis] 5 mg PO BID 01/09/21 [History] Atorvastatin Calcium [Lipitor] 40 mg PO HS 01/09/21 [History] Cyanocobalamin (Vitamin B-12) [Vitamin B-12] 1,000 mcg DAILY 01/09/21 [History] Aspirin 81 mg PO DAILY 01/11/21 [Rx] Clopidogrel [Plavix] 75 mg PO DAILY #90 tab 01/11/21 [Rx] Nitroglycerin Sl Tabs [Nitrostat] 0.4 mg SUBLINGUAL Q5M PRN #30 tab 01/11/21 [Rx] Follow up Appointment(s)/Referral(s): Kenneth Dee DO [Primary Care Provider] - 1 Week Edu Martinez DO [STAFF PHYSICIAN] - 1 Week Patient Instructions/Handouts: Heart Attack (DC), Heart Healthy Diet (DC) Discharge Disposition: HOME SELF-CARE
== END 2021-01-11 14:40 | disposition home or self-care (01) | DRG 247 ==
LOC: 2SICU 02:17 → 3SCARD 01-10 16:53
PROVIDERS: ADMIT Hospitalist; ATTEND Hospitalist
PROC: 4A023N7 Measurement of Cardiac Sampling and Pressure, Left Heart, Percutaneous Approach (ICD-10-PCS; 2021-01-09)
PROC: B2111ZZ Fluoroscopy of Multiple Coronary Arteries using Low Osmolar Contrast (ICD-10-PCS; 2021-01-09)
PROC: 0270356 Dilation of Coronary Artery, One Artery, Bifurcation, with Two Drug-eluting Intraluminal Devices, Percutaneous Approach (ICD-10-PCS; principal; 2021-01-09 02:18)
PROC: 02C03ZZ Extirpation of Matter from Coronary Artery, One Artery, Percutaneous Approach (ICD-10-PCS; 2021-01-09 02:18)
DX: I21.19 ST elevation (STEMI) myocardial infarction involving other coronary artery of inferior wall (principal); E87.1 Hypo-osmolality and hyponatremia; I25.10 Atherosclerotic heart disease of native coronary artery without angina pectoris; I10 Essential (primary) hypertension; I48.0 Paroxysmal atrial fibrillation; E86.1 Hypovolemia; E66.9 Obesity, unspecified; Z68.38 Body mass index [BMI] 38.0-38.9, adult; E78.5 Hyperlipidemia, unspecified; D72.829 Elevated white blood cell count, unspecified; Z79.01 Long term (current) use of anticoagulants; Z79.82 Long term (current) use of aspirin; Z86.73 Personal history of transient ischemic attack (TIA), and cerebral infarction without residual deficits; Z87.891 Personal history of nicotine dependence; Z79.899 Other long term (current) drug therapy; Z98.61 Coronary angioplasty status; R00.1 Bradycardia, unspecified; K75.89 Other specified inflammatory liver diseases
CPT/HCPCS: 80048; 80053; 83735; 84450; 84460; 85025; 85027; 93306; 93458

== ENCOUNTER 2021-10-03 08:14 | Emergency (ER) | payer MEDICARE ==
[2021-10-03 08:21] VITALS: BP 171/93; PULSE 81; RESP 16; TEMP 97.6
[2021-10-03] MEDS ORDERED: CARBAMIDE PEROXIDE 6.5% DROPS 15 ML BTL RIGHT EAR STA (09:07)
--- NOTE | 2021-10-03 09:25 | ED ---
General Adult HPI - General Chief complaint: ENT Stated complaint: rt ear issue Time Seen by Provider: 10/03/21 08:25 Source: patient, RN notes reviewed Mode of arrival: ambulatory Limitations: no limitations - History of Present Illness Initial comments: This a 66-year-old female presents emergency Department chief complaint of right ear issue. Patient states she cannot hear out of her right ear states that she has water in her right ear draining shower. She states it feels plugged and has not alleviated. Patient denies any headache dizziness blurred vision no focal weakness. Patient offers not complaints. - Related Data Home Medications Medication Instructions Recorded Confirmed Apixaban [Eliquis] 5 mg PO BID 01/09/21 01/09/21 Atorvastatin Calcium [Lipitor] 40 mg PO HS 01/09/21 01/09/21 Cyanocobalamin (Vitamin B-12) 1,000 mcg DAILY 01/09/21 01/09/21 [Vitamin B-12] Previous Rx's Medication Instructions Recorded Aspirin 81 mg PO DAILY 01/11/21 Clopidogrel [Plavix] 75 mg PO DAILY #90 tab 01/11/21 Nitroglycerin Sl Tabs [Nitrostat] 0.4 mg SUBLINGUAL Q5M PRN #30 tab 01/11/21 Allergies Allergy/AdvReac Type Severity Reaction Status Date / Time No Known Allergies Allergy Verified 10/03/21 08:21 Review of Systems ROS Statement: Those systems with pertinent positive or pertinent negative responses have been documented in the HPI. ROS Other: All systems not noted in ROS Statement are negative. Past Medical History Past Medical History: CVA/TIA, GERD/Reflux, Hypertension, Myocardial Infarction ([place]), Skin Disorder Additional Past Medical History / Comment(s): digenerative disc disease,HR skips a beat occas,blisterlike areas scattered that itch. CVA 06/2020 Last Myocardial Infarction Date:: 01/09/21 History of Any Multi-Drug Resistant Organisms: None Reported Past Surgical History: Tonsillectomy, Tubal Ligation Additional Past Surgical History / Comment(s): ganglion cyst removed lt hand, Right total knee Past Anesthesia/Blood Transfusion Reactions: No Reported Reaction Additional Past Anesthesia/Blood Transfusion Reaction / Comment(s): no hx blood transfusion Past Psychological History: No Psychological Hx Reported Smoking Status: Former smoker Past Alcohol Use History: None Reported Past Drug Use History: None Reported - Past Family History Mother Family Medical History: CVA/TIA, Hyperlipidemia Father Family Medical History: No Reported History General Exam Limitations: no limitations General appearance: alert, in no apparent distress Head exam: Present: atraumatic, normocephalic, normal inspection Eye exam: Present: normal appearance, PERRL, EOMI. Absent: scleral icterus, conjunctival injection, periorbital swelling ENT exam: Present: mucous membranes moist. Absent: normal exam, normal external ear exam (Right cerumen impaction) Respiratory exam: Present: normal lung sounds bilaterally. Absent: respiratory distress, wheezes, rales, rhonchi, stridor Cardiovascular Exam: Present: regular rate, normal rhythm, normal heart sounds. Absent: systolic murmur, diastolic murmur, rubs, gallop, clicks Neurological exam: Present: alert Course Vital Signs 10/03/21 08:19 Temperature 97.6 F Pulse Rate 81 Respiratory 16 Rate Blood Pressure 171/93 O2 Sat by Pulse 98 Oximetry Procedures - Ear Wax Removal Right Ear Cerumenolytic Used: Cerumenex Ear Canal Irrigated by: RN, other (PA) Ear Canal Irrigated With: warm saline with H2O2 using syringe/angiocath Results: Re-examined: cerumen removed completely TM Visible: TM(s) intact, normal appearance Ear Canal: atraumatic Patient Tolerated Procedure: well, no complications Complications: no problems Medical Decision Making - Medical Decision Making Patient presented for unable to hear her right ear patient had a cerumen impaction this was removed patient has greatly improved patient discharged in stable condition. Disposition Clinical Impression: Right ear impacted cerumen Disposition: HOME SELF-CARE Condition: Stable Instructions (If sedation given, give patient instructions): Carbamide Peroxide (Into the ear) Additional Instructions: Please return to the Emergency Department if symptoms worsen or any other concerns. Is patient prescribed a controlled substance at d/c from ED?: No Referrals: Porfirio Saenz MD [Primary Care Provider] - 1-2 days Time of Disposition: 09:39
== END 2021-10-03 09:49 | disposition home or self-care (01) ==
LOC: EC 08:14
DX: H61.21 Impacted cerumen, right ear (principal); I10 Essential (primary) hypertension; I25.2 Old myocardial infarction; K21.9 Gastro-esophageal reflux disease without esophagitis; Z87.891 Personal history of nicotine dependence; Z86.73 Personal history of transient ischemic attack (TIA), and cerebral infarction without residual deficits; Z79.01 Long term (current) use of anticoagulants; Z79.82 Long term (current) use of aspirin; Z79.02 Long term (current) use of antithrombotics/antiplatelets; Z79.899 Other long term (current) drug therapy
CPT/HCPCS: 69209; 99282

== ENCOUNTER 2023-01-04 15:48 | Inpatient (IN) | payer MEDICARE ==
[2023-01-04] MEDS ORDERED: SODIUM CHLORIDE 0.9% 500 ML 500 ML IV STA (16:21)
[2023-01-04 17:05] LABS: Basophils % (A) 0 %; Eosinophils # (A) 0.2 k/uL (0-0.7); Eosinophils % (A) 1 %; HCT 47.9 % (34.0-46.0); HGB 16.4 gm/dL (11.4-16.0); Lymphocytes % (A) 6 %; MCH 30.6 pg (25.0-35.0); MCHC 34.1 g/dL (31.0-37.0); MCV 89.5 fL (80.0-100.0); Mean Platelet Volume 7.5; Monocytes # (A) 1.2 k/uL (0-1.0); Monocytes % (A) 7 %; Neutrophils # (A) 15.2 k/uL (1.3-7.7); Neutrophils % (A) 85 %; Platelet Count 352 k/uL (150-450); RBC 5.35 m/uL (3.80-5.40); RDW 13.7 % (11.5-15.5); WBC 17.8 k/uL (3.8-10.6)
--- NOTE | 2023-01-04 17:10 | ED ---
Abdominal Pain HPI - General Chief Complaint: Abdominal Pain Stated Complaint: EVAL Time Seen by Provider: 01/04/23 16:06 Source: patient Mode of arrival: wheelchair Limitations: no limitations - History of Present Illness Initial Comments: 67-year-old female presents to the emergency department with right upper quadrant abdominal pain. States that she has had some right upper quadrant abdominal pain for the past 3 days. Pain is reproducible with palpation of the area. She went into her primary clinic who recommended that she have laboratory studies and an outpatient ultrasound performed. Patient reports that she was waiting for her blood work to be drawn however spent a considerable amount of time waiting. She was with her son who urged her to go to the emergency department so that she could have her testing completed sooner. Patient admits to nausea without vomiting. No fevers. Denies any chest pain or shortness of breath. She does have history of coronary disease with one stent placement two years ago. She admits to some yellow-colored stools that were looser in consistency this morning. Denies overt diarrhea. No changes in her urination. She does take Eliquis for afib. No other alleviating, precipitating or modifying factors - Related Data Home Medications Medication Instructions Recorded Confirmed Apixaban [Eliquis] 5 mg PO BID 01/09/21 01/04/23 Atorvastatin Calcium [Lipitor] 40 mg PO HS 01/09/21 01/04/23 Cyanocobalamin [Vitamin B-12] 500 mcg PO DAILY 01/04/23 01/04/23 Losartan [Cozaar] 25 mg PO BID 01/04/23 01/04/23 Nitroglycerin Sl Tabs [Nitrostat] 0.4 mg SL Q5M PRN 01/04/23 01/04/23 Allergies Allergy/AdvReac Type Severity Reaction Status Date / Time No Known Allergies Allergy Verified 01/04/23 15:53 Review of Systems ROS Statement: Those systems with pertinent positive or pertinent negative responses have been documented in the HPI. ROS Other: All systems not noted in ROS Statement are negative. Past Medical History Past Medical History: Atrial Fibrillation, CVA/TIA, GERD/Reflux, Hypertension, Myocardial Infarction ([place]), Skin Disorder Additional Past Medical History / Comment(s): digenerative disc disease,HR skips a beat occas,blisterlike areas scattered that itch. CVA 06/2020 Last Myocardial Infarction Date:: 01/09/21 History of Any Multi-Drug Resistant Organisms: None Reported Past Surgical History: Tonsillectomy, Tubal Ligation Additional Past Surgical History / Comment(s): ganglion cyst removed lt hand, Right total knee Past Anesthesia/Blood Transfusion Reactions: No Reported Reaction Additional Past Anesthesia/Blood Transfusion Reaction / Comment(s): no hx blood transfusion Past Psychological History: No Psychological Hx Reported Smoking Status: Former smoker Past Alcohol Use History: None Reported Past Drug Use History: None Reported - Past Family History Mother Family Medical History: CVA/TIA, Hyperlipidemia Father Family Medical History: No Reported History General Exam Limitations: no limitations General appearance: alert, in no apparent distress Head exam: Present: atraumatic, normocephalic, normal inspection Eye exam: Present: normal appearance, PERRL, EOMI. Absent: scleral icterus, conjunctival injection, periorbital swelling ENT exam: Present: normal exam, mucous membranes moist Neck exam: Present: normal inspection. Absent: tenderness, meningismus, lymphadenopathy Respiratory exam: Present: normal lung sounds bilaterally. Absent: respiratory distress, wheezes, rales, rhonchi, stridor Cardiovascular Exam: Present: regular rate, normal rhythm, normal heart sounds. Absent: systolic murmur, diastolic murmur, rubs, gallop, clicks GI/Abdominal exam: Present: soft, tenderness (right upper quadrant), normal bowel sounds. Absent: distended, guarding, rebound, rigid Extremities exam: Present: normal inspection, full ROM, normal capillary refill. Absent: tenderness, pedal edema, joint swelling, calf tenderness Back exam: Present: normal inspection Neurological exam: Present: alert, oriented X3, CN II-XII intact Psychiatric exam: Present: normal affect, normal mood Skin exam: Present: warm, dry, intact, normal color. Absent: rash Course Vital Signs 01/04/23 01/04/23 15:51 20:03 Temperature 98 F 98.2 F Pulse Rate 87 72 Respiratory 18 18 Rate Blood Pressure 128/80 148/87 O2 Sat by Pulse 97 98 Oximetry - Reevaluation(s) Reevaluation #1: Spoke with Dr. Thomason - refusing. Feels patient needs GI 01/04/23 1831 Reevaluation #2: spoke with Dr. Carlisle - refusing patient transfer until MRCP completed 01/04/23 19:04 Medical Decision Making - Medical Decision Making Was pt. sent in by a medical professional or institution (, PA, RAILCAR SWITCHER, urgent c are, hospital, or half-way...) When possible be specific @ -Patient was sent into the hospital by her primary care physician to have outpatient labs completed Did you speak to anyone other than the patient for history (EMS, parent, family, police, friend...)? What history was obtained from this source @ -I spoke with the patient's son in regards to her symptoms Did you review nursing and triage notes (agree or disagree)? Why? @ -I reviewed and agree with nursing and triage notes Were old charts reviewed (outside hosp., previous admission, EMS record, old EKG, old radiological studies, urgent care reports/EKG's, half-way records)? Report findings @ -I reviewed the patient's cardiac catheterization which was done in 2020 Differential Diagnosis (chest pain, altered mental status, abdominal pain women, abdominal pain men, vaginal bleeding, weakness, fever, dyspnea, syncope, headache, dizziness, GI bleed, back pain, seizure, CVA, palpatations, mental health, musculoskeletal)? @ -Differential Abdominal Pain Women: Appendicitis, Cholecystitis, diverticulosis, ischemic bowel, pancreatitis, hepatitis, UTI, gastroenteritis, AAA, incarcerated hernia, bowel obstruction, constipation, inflammatory bowel, hepatitis, peptic ulcer disease, splenic infarction, perforated viscus, vulvitis, ovarian torsion, PID, kidney stone, placenta abruption, this is not meant to be an all-inclusive list EKG interpreted by me (3pts min.). @ -yes and demonstrates sinus rhythm the rate is 75. ME interval 158. QRS 117. QTC of 407. No acute ST segment elevation. Left bundle-branch block. Repeat EKG at 1842 demonstrates sinus rhythm rate of 70. ME 164. QRS 118. QTC of 416. No acute ST segment elevation or depressions X-rays interpreted by me (1pt min.). @ -None done CT interpreted by me (1pt min.). @ -None done U/S interpreted by me (1pt. min.). @ -Yes and demonstrates gallbladder wall thickening, cholelithiasis and a dilated common bile duct What testing was considered but not performed or refused? (CT, X-rays, U/S, labs)? Why? @ -None What meds were considered but not given or refused? Why? @ -Heparin was considered however the patient is already on Eliquis. She also has acute cholecystitis with possible choledocholithiasis which may need surgical intervention and therefore anticoagulation is held off at this time. We will trend troponins Did you discuss the management of the patient with other professionals (professionals i.e. Dr., PA, RAILCAR SWITCHER, lab, RT, psych nurse, social welfare administrator, frame table operator, teacher, security police officer, case technician)? Give summary @ -I spoke with Dr. Cho in regards to the patient's symptoms. He would like the patient transferred out due to her dilated common bile duct. I did speak with Dr. rOestes new 2 who is the GI doctor at [facility]. He states that the next step for the patient would be an MRCP. He does not feel that the patient should be transferred before having the study. He feels that the patient should be admitted our facility and await MRCP. Should the patient have choledocholithiasis, then they would accept transfer of the patient Was smoking cessation discussed for >3mins.? @ -No Was critical care preformed (if so, how long)? @ -No Were there social determinants of health that impacted care today? How? (Homelessness, low income, unemployed, alcoholism, drug addiction, transportation, low edu. Level, literacy, decrease access to med. care, assisted, rehab)? @ -No Was there de-escalation of care discussed even if they declined (Discuss DNR or withdrawal of care, Hospice)? DNR status @ -No What co-morbidities impacted this encounter? (DM, HTN, Smoking, COPD, CAD, Cancer, CVA, ARF, Chemo, Hep., AIDS, mental health diagnosis, sleep apnea, morbid obesity)? @ -A. fib on Eliquis, coronary artery disease Was patient admitted / discharged? Hospital course, mention meds given and ro chitina, prescriptions, significant lab abnormalities, going to OR and other pertinent info. @ -Upon arrival patient was placed into room 1. A thorough history and physical exam was performed. Patient is placed on continuous pulse ox and cardiac monitoring. A 12-lead EKG was obtained. Patient does have palpable right upper quadrant abdominal pain without chest pain. IV is established and laboratory studies are conducted. Results to return and the patient has a mildly elevated bilirubin. Troponin is mildly elevated. She does have a leukocytosis. Ultrasound was performed which demonstrates gallbladder wall thickening, gallstones with a dilated common bile duct. I did call and speak with Dr. Thomason. He feels that the patient should be transferred for GI. I did call and speak with eDnis Dominguez. I spoke with Dr. Carlisle would like me to obtain an MRCP. I did call the MR department however they are not available [facility]. I called and spoke with Dr. Rockwell again however he feels that the patient should be kept at our facility and have an MRCP completed. Should the MRCP demonstrate choledocholithiasis, the patient can then be transferred at that time. He states he would be unable to obtain the study until possibly Sunday. I called and spoke with Dr. thomason again. He was agreeable to consult on the patient. Blood cultures are obtained and the patient is started on Zosyn. Patient is reevaluated. I did offer pain medications again to the patient and she was agreeable to some Tylenol. Patient was agreeable to staying at our facility for further testing until transfer was absolutely necessary. We will obtain cardiac clearance as the patient does have a mildly elevated troponin. We will trend his troponin. She has not acutely heparinized as there is concern that the patient may need surgical intervention. She is also not complaining of any chest pain and EKG does not demonstrate any ischemic changes. Patient was agreeable to this plan. Spoke with Dr. Zabala from [facility] will admit the patient. Patient taken to the floor in stable condition Undiagnosed new problem with uncertain prognosis? @ -Yes Drug Therapy requiring intensive monitoring for toxicity (Heparin, Nitro, Insulin, Cardizem)? @ -No Were any procedures done? @ -No Diagnosis/symptom? @ -Acute right upper quadrant abdominal pain, acute leukocytosis, acute cholecystitis, acute cholelithiasis, acute dilated common bile duct, acutely elevated troponin, history of coronary artery disease, history of A. fib on Eliquis Acute, or Chronic, or Acute on Chronic? @ -see above Uncomplicated (without systemic symptoms) or Complicated (systemic symptoms)? @ -Complicated Side effects of treatment? @ -ALLERGIC reaction Exacerbation, Progression, or Severe Exacerbation? @ -No Poses a threat to life or bodily function? How? (Chest pain, [place], [place], pneumonia, PE, COPD, DKA, ARF, appy, cholecystitis, CVA, Diverticulitis, Homicidal, Suicidal, threat to staff... and all critical care pts) @ -Yes, patient has cholecystitis, elevated troponin - Lab Data Result diagrams: 01/04/23 16:28 01/04/23 16:28 Lab Results 01/04/23 01/04/23 01/04/23 Range/Units 16:28 16:28 16:28 WBC 17.8 H (3.8-10.6) k/uL RBC 5.35 (3.80-5.40) m/uL Hgb 16.4 H (11.4-16.0) gm/dL Hct 47.9 H (34.0-46.0) % MCV 89.5 (80.0-100.0) fL MCH 30.6 (25.0-35.0) pg MCHC 34.1 (31.0-37.0) g/dL RDW 13.7 (11.5-15.5) % Plt Count 352 (150-450) k/uL MPV 7.5 Neutrophils % 85 % Lymphocytes % 6 % Monocytes % 7 % Eosinophils % 1 % Basophils % 0 % Neutrophils # 15.2 H (1.3-7.7) k/uL Lymphocytes # 1.0 (1.0-4.8) k/uL Monocytes # 1.2 H (0-1.0) k/uL Eosinophils # 0.2 (0-0.7) k/uL Basophils # 0.0 (0-0.2) k/uL PT (9.0-12.0) sec INR (<1.2) APTT (22.0-30.0) sec Sodium 127 L (137-145) mmol/L Potassium 4.4 (3.5-5.1) mmol/L Chloride 91 L (98-107) mmol/L Carbon Dioxide 24 (22-30) mmol/L Anion Gap 12 mmol/L BUN 18 H (7-17) mg/dL Creatinine 0.96 (0.52-1.04) mg/dL Est GFR (CKD-EPI)AfAm 70 (>60 ml/min/1.73 sqM) Est GFR (CKD-EPI)NonAf 61 (>60 ml/min/1.73 sqM) Glucose 98 (74-99) mg/dL Plasma Lactic Acid Christopher 1.7 (0.7-2.0) mmol/L Calcium 9.0 (8.4-10.2) mg/dL Total Bilirubin 1.4 H (0.2-1.3) mg/dL AST 63 H (14-36) U/L ALT 31 (4-34) U/L Alkaline Phosphatase 230 H (38-126) U/L Troponin I (0.000-0.034) ng/mL Total Protein 7.0 (6.3-8.2) g/dL Albumin 3.6 (3.5-5.0) g/dL Lipase 74 (23-300) U/L 01/04/23 01/04/23 Range/Units 16:28 17:45 WBC (3.8-10.6) k/uL RBC (3.80-5.40) m/uL Hgb (11.4-16.0) gm/dL Hct (34.0-46.0) % MCV (80.0-100.0) fL MCH (25.0-35.0) pg MCHC (31.0-37.0) g/dL RDW (11.5-15.5) % Plt Count (150-450) k/uL MPV Neutrophils % % Lymphocytes % % Monocytes % % Eosinophils % % Basophils % % Neutrophils # (1.3-7.7) k/uL Lymphocytes # (1.0-4.8) k/uL Monocytes # (0-1.0) k/uL Eosinophils # (0-0.7) k/uL Basophils # (0-0.2) k/uL PT 10.5 (9.0-12.0) sec INR 1.0 (<1.2) APTT 27.3 (22.0-30.0) sec Sodium (137-145) mmol/L Potassium (3.5-5.1) mmol/L Chloride (98-107) mmol/L Carbon Dioxide (22-30) mmol/L Anion Gap mmol/L BUN (7-17) mg/dL Creatinine (0.52-1.04) mg/dL Est GFR (CKD-EPI)AfAm (>60 ml/min/1.73 sqM) Est GFR (CKD-EPI)NonAf (>60 ml/min/1.73 sqM) Glucose (74-99) mg/dL Plasma Lactic Acid Christopher (0.7-2.0) mmol/L Calcium (8.4-10.2) mg/dL Total Bilirubin (0.2-1.3) mg/dL AST (14-36) U/L ALT (4-34) U/L Alkaline Phosphatase (38-126) U/L Troponin I 0.079 H* (0.000-0.034) ng/mL Total Protein (6.3-8.2) g/dL Albumin (3.5-5.0) g/dL Lipase (23-300) U/L Disposition Clinical Impression: RUQ abdominal pain, Elevated troponin, Common bile duct dilatation, Leukocytosis Disposition: ADMITTED IP TO THIS [facility] Condition: Stable Is patient prescribed a controlled substance at d/c from ED?: No Time of Disposition: 20:15 Decision to Admit Reason: Admit from EC Decision Date: 01/04/23 Decision Time: 20:15
--- NOTE | 2023-01-04 17:16 | US ---
EXAMINATION TYPE: US abdomen limited DATE OF EXAM: 01/04/2023 COMPARISON: NONE CLINICAL INDICATION: Female, 67 years old with history of ruq; RUQ pain exam limitations due to body habitus. TECHNIQUE: Multiple sonographic images of the right upper quadrant are obtained. FINDINGS: EXAM MEASUREMENTS: Liver Length: 20.5 cm Gallbladder Wall: 1.1 cm CBD: 1.4 cm Right Kidney: 10.6 x 4.6 x 5.2 cm IMPLEMENTATION ANALYST NOTES: Pancreas: wnl Liver: wnl Gallbladder: Dilated 13.3 x 4.8 cm thickened wall 1.1 cm large stone 4 cm. Evidence for sonographic Chaidez's sign: no CBD: Dilated Right Kidney: No hydronephrosis or masses seen IMPRESSION: Cholelithiasis with thickened yu correlate for cholecystitis. Consider chronic cholecystitis given negative for sonographic Chaidez's sign. Correlate for systemic causes of third spacing of fluid.
[2023-01-04 17:27] LABS: ALT 31 U/L (4-34); AST 63 U/L (14-36); African American GFR (CKD) 70 (>60 ml/min/1.73 sqM); Albumin 3.6 g/dL (3.5-5.0); Alkaline Phosphatase 230 U/L (38-126); Anion Gap 12 mmol/L; Blood Urea Nitrogen 18 mg/dL (7-17); Carbon Dioxide 24 mmol/L (22-30); Chloride 91 mmol/L (98-107); Glucose 98 mg/dL (74-99); Lipase 74 U/L (23-300); Non-African American GFR(CKD) 61 (>60 ml/min/1.73 sqM); Potassium 4.4 mmol/L (3.5-5.1); Sodium 127 mmol/L (137-145); Total Bilirubin 1.4 mg/dL (0.2-1.3)
[2023-01-04] MEDS ORDERED: PIPERACILLIN-TAZOBACTAM 3.375 GM in SODIUM CHLORIDE 0.9% 100 ML IVPB STA (18:29)
[2023-01-04 18:37] LABS: Partial Thromboplastin Time 27.3 sec (22.0-30.0); Prothrombin Time 10.5 sec (9.0-12.0)
[2023-01-04] MEDS ORDERED: ACETAMINOPHEN IV (For NPO) 1,000 MG in EMPTY BAG 1 BAG IVPB STA (20:05)
[2023-01-04] MEDS ORDERED: ONDANSETRON 4 MG/2 ML VIAL IVP PRN (20:15)
[2023-01-04] MEDS ORDERED: NALOXONE 0.4 MG/ML 1 ML VIAL IV PRN (20:15)
[2023-01-04] MEDS ORDERED: HEPARIN SODIUM 1,000 UN/ML (10ML VL) IV PRN (23:13)
[2023-01-04] MEDS ORDERED: ASPIRIN 81 MG PO STA (23:14)
[2023-01-05] MEDS: PIPERACILLIN-TAZOBACTAM 3.375 GM in SODIUM CHLORIDE 0.9% 100 ML IVPB SCH ×4 (00:04→23:26)
[2023-01-05] MEDS: HEPARIN SOD,PORK IN 0.45% NACL 25,000 UNIT in 0.45% NACL 1 250ML.BAG IV SCH ×2 (00:04→20:11)
[2023-01-05] MEDS: ATORVASTATIN 40 MG TAB PO SCH ×2 (00:05→20:10)
[2023-01-05] MEDS ORDERED: MORPHINE SULFATE 4 MG/ML SYRINGE IVP PRN (01:04)
[2023-01-05 01:54] LABS: Appearance,Urine Cloudy (Clear); Bacteria,Urine Rare /hpf; Bilirubin,Urine Negative (Negative); Blood,Urine Negative (Negative); Color,Urine Light Yellow; Glucose,Urine (UA) Negative (Negative); Ketones,Urine 1+ (Negative); Leukocyte Esterase,Urine Moderate (Negative); Nitrite,Urine Negative (Negative); Protein,Urine Trace (Negative); RBC,Urine 1 /hpf (0-5); Specific Gravity,Urine 1.021 (1.001-1.035); Squamous Epithelial Cell,Urine 13 /hpf (0-4); Urobilinogen,Urine <2.0 mg/dL (<2.0); WBC,Urine 27 /hpf (0-5)
[2023-01-05 07:45] LABS: Basophils % (A) 0 %; Eosinophils # (A) 0.1 k/uL (0-0.7); Eosinophils % (A) 1 %; HCT 42.7 % (34.0-46.0); HGB 13.8 gm/dL (11.4-16.0); Lymphocytes # (A) 1.1 k/uL (1.0-4.8); Lymphocytes % (A) 9 %; MCH 29.5 pg (25.0-35.0); MCHC 32.3 g/dL (31.0-37.0); MCV 91.1 fL (80.0-100.0); Mean Platelet Volume 7.4; Monocytes % (A) 8 %; Neutrophils # (A) 9.7 k/uL (1.3-7.7); Neutrophils % (A) 80 %; Platelet Count 322 k/uL (150-450); RBC 4.68 m/uL (3.80-5.40); RDW 13.8 % (11.5-15.5)
[2023-01-05 08:07] LABS: Partial Thromboplastin Time 40.8 sec (22.0-30.0); Prothrombin Time 10.6 sec (9.0-12.0)
[2023-01-05 08:27] LABS: African American GFR (CKD) 89 (>60 ml/min/1.73 sqM); Anion Gap 11 mmol/L; Blood Urea Nitrogen 13 mg/dL (7-17); Calcium 8.6 mg/dL (8.4-10.2); Carbon Dioxide 21 mmol/L (22-30); Chloride 96 mmol/L (98-107); Glucose 84 mg/dL (74-99); Non-African American GFR(CKD) 77 (>60 ml/min/1.73 sqM); Potassium 3.9 mmol/L (3.5-5.1); Sodium 128 mmol/L (137-145)
[2023-01-05] MEDS: CYANOCOBALAMIN 500 MCG TAB PO SCH (08:28)
[2023-01-05] MEDS: LOSARTAN 25 MG TAB PO SCH ×2 (08:29→20:11)
--- NOTE | 2023-01-05 09:07 | P.CRDCN ---
History of Present Illness Consult date: 01/05/23 Reason for Consult (text): Elevated troponin, history of heart disease History of present illness: History of present illness: This is a 67-year-old female patient of Dr. Martinez with past medical history of hypertension, PFO, hyperlipidemia, paroxysmal atrial fibrillation, ischemic cardiomyopathy with mildly improved EF to 40-45%, CVA, coronary artery disease with prior ST elevated DE. We have been asked to evaluate the patient for elev ated troponins with history of heart disease. Patient states that she developed abdominal pain in the umbilical area of burning type sensation around Sunday and Sunday she then had pain in the right upper quadrant that has continued. She initially thought it was gas but eventually went to the clinic in [place] was sent to the hospital for further evaluation. She was found to have leukocytosis and ultrasound revealed cholecystitis. General surgery is on consult and she is scheduled for MRCP. Patient denies having any chest pain. No lightheadedness or dizziness. She states she has had palpitations since Sunday or Sunday where she felt her heart was racing and could feel in her ne ck. Eliquis has been placed on hold patient started on heparin drip. EKG sinus rhythm, telemetry sinus rhythm WBC initially 17.8 now 12, hemoglobin 13.8. INR 1. Sodium 140, potassium 3.9, chloride 96, BUN 13 creatinine 0.79. Troponins 0.079, 0.106, 0.119. Total bilirubin 1.4, AST 63, ALT 31, alkaline phosphatase 230. Lipase 74. Urinalysis was a contaminated specimen. Home cardiac medications: Eliquis 5 mg twice daily, atorvastatin 40 mg at bedtime, losartan 25 mg twice daily, Nitrostat as needed Echocardiogram performed 05/2022 revealed EF 40-45%. Global LV hypokinesis. Mild concentric left ventricular hypertrophy. Patent foramen ovale mild aortic regurgitation. Mild mitral regurgitation. Mild tricuspid regurgitation. Normal PASP. Cardiac catheterization 01/2021 in the setting of acute inferior ST elevated DE revealed critical disease involving the distal right coronary artery with successful stenting of the distal right coronary artery, mild disease involving the left coronary system. Review Of Systems: At the time of my evaluation: Constitutional: No fever, no chills. No weakness, fatigue or lethargy. EENT: No headache. No dizziness. Lungs: No shortness of breath, cough, no sputum production. No wheezing. Cardiovascular: No chest pain, no lower extremity edema. Reports palpitations. No paroxysmal nocturnal dyspnea. No orthopnea. No lightheadedness or diz ziness. No syncopal episodes. Abdominal: Reports right upper quadrant abdominal pain. No nausea, vomiting. No diarrhea. No constipation. No bloody or tarry stools. Musculoskeletal: No myalgias. No muscle weakness, no frequent falls. Integumentary: No wounds. No rash. No unusual bruising. Neurologic: No aphasia. No facial droop. No change in mentation. Physical examination: Gen: This is a morbidly obese 67-year-old female. She is resting in bed and appears to be in no acute distress. No respiratory distress noted. VS: reviewed HEENT: Head is atraumatic, normocephalic. Pupils equal, round. Sclerae is anicteric. NECK: Supple. No JVD. . LUNGS: Clear to auscultation. No wheezes or rhonchi. No intercostal retractions. HEART: Regular rate and rhythm. No murmur. ABDOMEN: Soft right upper quadrant tenderness. EXTREMITIES: No pedal edema. No calf tenderness. Dorsalis pedis palpable bilaterally NEUROLOGICAL: Patient is awake, alert and oriented x3. Assessment: Elevated troponin Cholecystitis and elevated liver function test History of coronary artery disease Ischemic cardiomyopathy with EF of 40-45% Paroxysmal atrial fibrillation Hyperlipidemia PFO Plan: Continue patient's home cardiac medications except for eliquis which is on hold Continue heparin drip Obtain limited 2-D echocardiogram and Doppler study to assess cardiac function Monitor renal function electrolytes Further recommendations to follow based upon clinical course Thank you kindly for this consultation. Nurse practitioner note has been reviewed, I agree with documented findings and plan of care. Patient was seen and examined. Past Medical History Past Medical History: Atrial Fibrillation, CVA/TIA, GERD/Reflux, Hypertension, Myocardial Infarction ([place]), Skin Disorder Additional Past Medical History / Comment(s): digenerative disc disease,HR skips a beat occas,blisterlike areas scattered that itch. CVA 06/2020 Last Myocardial Infarction Date:: 01/09/21 History of Any Multi-Drug Resistant Organisms: None Reported Past Surgical History: Tonsillectomy, Tubal Ligation Additional Past Surgical History / Comment(s): ganglion cyst removed lt hand, Right total knee Past Anesthesia/Blood Transfusion Reactions: No Reported Reaction Additional Past Anesthesia/Blood Transfusion Reaction / Comment(s): no hx blood transfusion Date of Last Stent Placement:: 01/09/21 Past Psychological History: No Psychological Hx Reported Smoking Status: Former smoker Past Alcohol Use History: None Reported Past Drug Use History: None Reported - Past Family History Mother Family Medical History: CVA/TIA, Hyperlipidemia Father Family Medical History: No Reported History Medications and Allergies Home Medications Medication Instructions Recorded Confirmed Type Apixaban [Eliquis] 5 mg PO BID 01/09/21 01/04/23 History Atorvastatin Calcium [Lipitor] 40 mg PO HS 01/09/21 01/04/23 History Cyanocobalamin [Vitamin B-12] 500 mcg PO DAILY 01/04/23 01/04/23 History Losartan [Cozaar] 25 mg PO BID 01/04/23 01/04/23 History Nitroglycerin Sl Tabs [Nitrostat] 0.4 mg SL Q5M PRN 01/04/23 01/04/23 History Allergies Allergy/AdvReac Type Severity Reaction Status Date / Time No Known Allergies Allergy Verified 01/04/23 15:53 Physical Exam Vitals: Vital Signs Temp Pulse Pulse Resp BP BP Pulse Ox 01/05/23 04:00 97.8 F 54 L 18 132/75 96 01/04/23 23:45 97.8 F 53 L 18 148/78 98 01/04/23 21:20 97.8 F 70 16 130/80 95 01/04/23 20:03 98.2 F 72 18 148/87 98 01/04/23 15:51 98 F 87 18 128/80 97 Intake and Output 01/04/23 01/05/23 01/05/23 22:59 06:59 14:59 Other: Voiding Method Toilet # Voids 1 1 Weight 113.398 kg Results 01/05/23 06:40 01/05/23 08:18 Cardiac Enzymes 01/04/23 01/04/23 01/04/23 Range/Units 16:28 16:28 21:28 AST 63 H (14-36) U/L Troponin I 0.079 H* 0.106 H* (0.000-0.034) ng/mL 01/05/23 Range/Units 00:16 AST (14-36) U/L Troponin I 0.119 H* (0.000-0.034) ng/mL Coagulation 01/04/23 01/05/23 Range/Units 17:45 00:16 PT 10.5 (9.0-12.0) sec APTT 27.3 30.1 H (22.0-30.0) sec CBC 01/04/23 01/05/23 Range/Units 16:28 06:40 WBC 17.8 H 12.0 H (3.8-10.6) k/uL RBC 5.35 4.68 (3.80-5.40) m/uL Hgb 16.4 H 13.8 (11.4-16.0) gm/dL Hct 47.9 H 42.7 (34.0-46.0) % Plt Count 352 322 (150-450) k/uL Comprehensive Metabolic Panel 01/04/23 Range/Units 16:28 Sodium 127 L (137-145) mmol/L Potassium 4.4 (3.5-5.1) mmol/L Chloride 91 L (98-107) mmol/L Carbon Dioxide 24 (22-30) mmol/L BUN 18 H (7-17) mg/dL Creatinine 0.96 (0.52-1.04) mg/dL Glucose 98 (74-99) mg/dL Calcium 9.0 (8.4-10.2) mg/dL AST 63 H (14-36) U/L ALT 31 (4-34) U/L Alkaline Phosphatase 230 H (38-126) U/L Total Protein 7.0 (6.3-8.2) g/dL Albumin 3.6 (3.5-5.0) g/dL Current Medications Generic Name Dose Route Start Last Admin Trade Name Freq PRN Reason Stop Dose Admin Atorvastatin Calcium 40 mg 01/04/23 23:15 01/05/23 00:05 Atorvastatin 40 Mg Tab PO 40 mg HS CRISTOBAL Administration Cyanocobalamin 500 mcg 01/05/23 09:00 Cyanocobalamin 500 Mcg Tab PO DAILY CRISTOBAL Heparin Sodium (Porcine) 0 unit 01/04/23 23:13 Heparin Sodium 1,000 Un/Ml (10ml Vl) IV PER PROTOCOL PRN Low PTT Protocol Piperacillin Sod/Tazobactam 100 mls @ 25 mls/hr 01/05/23 00:00 01/05/23 00:04 Sod 3.375 gm/ Sodium Chloride IVPB 25 mls/hr Q8HR CRISTOBAL Administration Protocol Heparin Sodium/Sodium Chloride 250 mls @ 10.002 mls/hr 01/04/23 23:15 01/05/23 00:04 25,000 unit/ Sodium Chloride IV 8.82 units/kg/hr .Q24H CRISTOBAL 10.002 mls/hr Administration Protocol 8.82 UNITS/KG/HR Losartan Potassium 25 mg 01/05/23 09:00 Losartan 25 Mg Tab PO BID CRISTOBAL Morphine Sulfate 4 mg 01/05/23 01:04 Morphine Sulfate 4 Mg/Ml Syringe IVP Q6HR PRN Pain Naloxone HCl 0.2 mg 01/04/23 20:15 Naloxone 0.4 Mg/Ml 1 Ml Vial IV Q2M PRN Opioid Reversal Ondansetron HCl 4 mg 01/04/23 20:15 Ondansetron 4 Mg/2 Ml Vial IVP Q8HR PRN Nausea And Vomiting Intake and Output 01/04/23 01/05/23 01/05/23 22:59 06:59 14:59 Other: Voiding Method Toilet # Voids 1 1 Weight 113.398 kg 01/05/23 06:40 01/04/23 16:28
[2023-01-05 09:21] LABS: ALT 26 U/L (4-34); AST 50 U/L (14-36); African American GFR (CKD) >90 (>60 ml/min/1.73 sqM); Albumin 2.9 g/dL (3.5-5.0); Alkaline Phosphatase 196 U/L (38-126); Anion Gap 11 mmol/L; Blood Urea Nitrogen 13 mg/dL (7-17); Calcium 8.6 mg/dL (8.4-10.2); Carbon Dioxide 22 mmol/L (22-30); Chloride 96 mmol/L (98-107); Glucose 90 mg/dL (74-99); Non-African American GFR(CKD) 87 (>60 ml/min/1.73 sqM); Potassium 4.1 mmol/L (3.5-5.1); Sodium 129 mmol/L (137-145); Total Bilirubin 1.3 mg/dL (0.2-1.3)
--- NOTE | 2023-01-05 13:00 | P.HPIM ---
History of Present Illness H&P Date: 01/05/23 History of present illness; patient is 67-year-old lady with past medical histor y significant for coronary artery disease, atrial fibrillation, hyperlipidemia and the ER because of right upper quadrant pain. Patient has been having this pain for the last 3 days. Pain is intermittent, sharp in character, nonradiating, no aggravating or relieving factors associated with this pain. Patient was complaining of nausea but no vomiting. Patient also noticed that his stools were yellow in color and looser in consistency. Denied any fever or chills. Denies any chest pain. Denied shortness of breath. Because of abdominal pain, patient went to her PCP who ordered some blood work. Because of persistent abdominal pain and the delay in getting those tests done, patient came to the ER Initial lab work done in the ER showed WBC 17.8, hemoglobin 16.4, platelet count 352, sodium 127, potassium 4.4, BUN 18, creatinine 0.96 total bilirubin 1.4, AST 63, ALT 31, 0.079 EKG done in the ER showed heart rate of 75, no ST segment elevation or T-wave inversion seen and a liquids Abdominal ultrasound done showed cholelithiasis with thickened yu correlate for cholecystitis. Consider chorionic cholecystitis given negative Chaidez sign Patient admitted to medicine service REVIEW OF SYSTEMS: CONSTITUTIONAL: No fever, no malaise, no fatigue. HEENT: No recent visual problems or hearing problems. Denied any sore throat. CARDIOVASCULAR:As mentioned in HPI PULMONARY: No shortness of breath, no cough, no hemoptysis. GASTROINTESTINAL: As mentioned in HPI NEUROLOGICAL: No headaches, no weakness, no numbness. HEMATOLOGICAL: Denies any bleeding or petechiae. GENITOURINARY: Denies any burning micturition, frequency, or urgency. MUSCULOSKELETAL/RHEUMATOLOGICAL: Denies any joint pain, swelling, or any muscle pain. ENDOCRINE: Denies any polyuria or polydipsia. The rest of the 14-point review of systems is negative. PHYSICAL EXAMINATION: GENERAL: The patient is alert and oriented x3, not in any acute distress. Well developed, well nourished. HEENT: Pupils are round and equally reacting to light. EOMI. No scleral icterus. No conjunctival pallor. Normocephalic, atraumatic. No pharyngeal erythema. No thyromegaly. CARDIOVASCULAR: S1 and S2 present. No murmurs, rubs, or gallops. PULMONARY: Chest is clear to auscultation, no wheezing or crackles. ABDOMEN: Tenderness in right upper quadrant, no guarding, no rigidity normoactive bowel sounds. No palpable organomegaly. MUSCULOSKELETAL: No joint swelling or deformity. EXTREMITIES: No cyanosis, clubbing, or pedal edema. NEUROLOGICAL: Gross neurological examination did not reveal any focal deficits. SKIN: No rashes. Assessment and plan Acute on chronic cholecystitis Right upper quadrant abdominal pain Elevated troponin History of atrial fibrillation History of Coronary artery disease Monitor vital signs Monitor CBC Monitor CMP Continue telemetry monitoring Continue pain management Continue IV fluids Continue pharmacy dose heparin MRCP ordered Echo ordered Cardiology consulted Gen. surgery consulted Labs and medication were reviewed.. Continue same treatment. Continue with symptomatic treatment. Resume home medication. Monitor labs and vitals. DVT and GI prophylaxis. Further recommendations as per clinical course of the patient Dictation was produced using [employer] dictation software. please excuse any grammatical, word or spelling errors. Past Medical History Past Medical History: Atrial Fibrillation, CVA/TIA, GERD/Reflux, Hypertension, Myocardial Infarction ([place]), Skin Disorder Additional Past Medical History / Comment(s): digenerative disc disease,HR skips a beat occas,blisterlike areas scattered that itch. CVA 06/2020 Last Myocardial Infarction Date:: 01/09/21 History of Any Multi-Drug Resistant Organisms: None Reported Past Surgical History: Tonsillectomy, Tubal Ligation Additional Past Surgical History / Comment(s): ganglion cyst removed lt hand, Right total knee Past Anesthesia/Blood Transfusion Reactions: No Reported Reaction Additional Past Anesthesia/Blood Transfusion Reaction / Comment(s): no hx blood transfusion Date of Last Stent Placement:: 01/09/21 Past Psychological History: No Psychological Hx Reported Smoking Status: Former smoker Past Alcohol Use History: None Reported Past Drug Use History: None Reported - Past Family History Mother Family Medical History: CVA/TIA, Hyperlipidemia Father Family Medical History: No Reported History Medications and Allergies Home Medications Medication Instructions Recorded Confirmed Type Apixaban [Eliquis] 5 mg PO BID 01/09/21 01/04/23 History Atorvastatin Calcium [Lipitor] 40 mg PO HS 01/09/21 01/04/23 History Cyanocobalamin [Vitamin B-12] 500 mcg PO DAILY 01/04/23 01/04/23 History Losartan [Cozaar] 25 mg PO BID 01/04/23 01/04/23 History Nitroglycerin Sl Tabs [Nitrostat] 0.4 mg SL Q5M PRN 01/04/23 01/04/23 History Allergies Allergy/AdvReac Type Severity Reaction Status Date / Time No Known Allergies Allergy Verified 01/04/23 15:53 Physical Exam Vitals: Vital Signs Temp Pulse Pulse Resp BP BP Pulse Ox 01/05/23 08:21 97.8 F 63 16 152/83 96 01/05/23 04:00 97.8 F 54 L 18 132/75 96 01/04/23 23:45 97.8 F 53 L 18 148/78 98 01/04/23 21:20 97.8 F 70 16 130/80 95 01/04/23 20:03 98.2 F 72 18 148/87 98 01/04/23 15:51 98 F 87 18 128/80 97 Intake and Output 01/04/23 01/05/23 01/05/23 22:59 06:59 14:59 Intake Total 83.35 Balance 83.35 Intake: Intake, IV Titration 83.35 Amount Heparin Sod,Pork in 0.45% 83.35 NaCl 25,000 unit In 0.45 % NaCl 1 250ml.bag @ 8.82 UNITS/KG/HR 10.002 mls/ hr IV .Q24H [facility] Rx#: [id number] Other: Voiding Method Toilet # Voids 1 1 Weight 113.398 kg Results CBC & Chem 7: 01/05/23 06:40 01/05/23 08:18 Labs: Abnormal Lab Results - Last 24 Hours (Table) 01/04/23 01/04/23 01/04/23 Range/Units 16:28 16:28 16:28 WBC 17.8 H (3.8-10.6) k/uL Hgb 16.4 H (11.4-16.0) gm/dL Hct 47.9 H (34.0-46.0) % Neutrophils # 15.2 H (1.3-7.7) k/uL Monocytes # 1.2 H (0-1.0) k/uL APTT (22.0-30.0) sec Sodium 127 L (137-145) mmol/L Chloride 91 L (98-107) mmol/L Carbon Dioxide (22-30) mmol/L BUN 18 H (7-17) mg/dL Total Bilirubin 1.4 H (0.2-1.3) mg/dL AST 63 H (14-36) U/L Alkaline Phosphatase 230 H (38-126) U/L Troponin I 0.079 H* (0.000-0.034) ng/mL Total Protein (6.3-8.2) g/dL Albumin (3.5-5.0) g/dL Urine Appearance (Clear) Urine Protein (Negative) Urine Ketones (Negative) Ur Leukocyte Esterase (Negative) Urine WBC (0-5) /hpf Urine WBC Clumps (None) /hpf Ur Squamous Epith Cells (0-4) /hpf Urine Bacteria (None) /hpf 01/04/23 01/05/23 01/05/23 Range/Units 21:28 00:16 00:16 WBC (3.8-10.6) k/uL Hgb (11.4-16.0) gm/dL Hct (34.0-46.0) % Neutrophils # (1.3-7.7) k/uL Monocytes # (0-1.0) k/uL APTT 30.1 H (22.0-30.0) sec Sodium (137-145) mmol/L Chloride (98-107) mmol/L Carbon Dioxide (22-30) mmol/L BUN (7-17) mg/dL Total Bilirubin (0.2-1.3) mg/dL AST (14-36) U/L Alkaline Phosphatase (38-126) U/L Troponin I 0.106 H* 0.119 H* (0.000-0.034) ng/mL Total Protein (6.3-8.2) g/dL Albumin (3.5-5.0) g/dL Urine Appearance (Clear) Urine Protein (Negative) Urine Ketones (Negative) Ur Leukocyte Esterase (Negative) Urine WBC (0-5) /hpf Urine WBC Clumps (None) /hpf Ur Squamous Epith Cells (0-4) /hpf Urine Bacteria (None) /hpf 01/05/23 01/05/23 01/05/23 Range/Units 00:52 06:40 06:40 WBC 12.0 H (3.8-10.6) k/uL Hgb (11.4-16.0) gm/dL Hct (34.0-46.0) % Neutrophils # 9.7 H (1.3-7.7) k/uL Monocytes # (0-1.0) k/uL APTT (22.0-30.0) sec Sodium 128 L (137-145) mmol/L Chloride 96 L (98-107) mmol/L Carbon Dioxide 21 L (22-30) mmol/L BUN (7-17) mg/dL Total Bilirubin (0.2-1.3) mg/dL AST (14-36) U/L Alkaline Phosphatase (38-126) U/L Troponin I (0.000-0.034) ng/mL Total Protein (6.3-8.2) g/dL Albumin (3.5-5.0) g/dL Urine Appearance Cloudy H (Clear) Urine Protein Trace H (Negative) Urine Ketones 1+ H (Negative) Ur Leukocyte Esterase Moderate H (Negative) Urine WBC 27 H (0-5) /hpf Urine WBC Clumps Rare H (None) /hpf Ur Squamous Epith Cells 13 H (0-4) /hpf Urine Bacteria Rare H (None) /hpf 01/05/23 01/05/23 Range/Units 06:40 08:18 WBC (3.8-10.6) k/uL Hgb (11.4-16.0) gm/dL Hct (34.0-46.0) % Neutrophils # (1.3-7.7) k/uL Monocytes # (0-1.0) k/uL APTT 40.8 H (22.0-30.0) sec Sodium 129 L (137-145) mmol/L Chloride 96 L (98-107) mmol/L Carbon Dioxide (22-30) mmol/L BUN (7-17) mg/dL Total Bilirubin (0.2-1.3) mg/dL AST 50 H (14-36) U/L Alkaline Phosphatase 196 H (38-126) U/L Troponin I (0.000-0.034) ng/mL Total Protein 6.0 L (6.3-8.2) g/dL Albumin 2.9 L (3.5-5.0) g/dL Urine Appearance (Clear) Urine Protein (Negative) Urine Ketones (Negative) Ur Leukocyte Esterase (Negative) Urine WBC (0-5) /hpf Urine WBC Clumps (None) /hpf Ur Squamous Epith Cells (0-4) /hpf Urine Bacteria (None) /hpf Thrombosis Risk Factor Assmnt - Choose All That Apply Any of the Below Risk Factors Present?: Yes Each Factor Represents 1 point: Obesity (BMI >25) Other Risk Factors: Yes Each Risk Factor Represents 2 Points: Age 61-74 years Thrombosis Risk Factor Assessment Total Risk Factor Score: 3 Thrombosis Risk Factor Assessment Level: Moderate Risk
--- NOTE | 2023-01-05 13:25 | P.GSCN ---
History of Present Illness Consult date: 01/05/23 History of present illness: CHIEF COMPLAINT: Abdominal pain HISTORY OF PRESENT ILLNESS: This is a 67-year-old female who presents to hospital with complaints of right upper quadrant abdominal pain for the last 3 days. She did have nausea. Initially she thought she had food poisoning but continued to have right upper quadrant pain and came to the ER for evaluation. She does have a history of A. fib and takes Eliquis at home. Last dose was on 01/04/2023 in the morning. Patient had abdominal ultrasound completed that did show evidence of cholelithiasis thickened gallbladder wall and a dilated common bile duct. She did have mildly elevated total bilirubin and liver enzymes. And she is scheduled for an MRCP today. Patient also had elevated troponins and is being evaluated by cardiology. She does have a history of myocardial infarction and coronary artery disease with stent about 2 years ago. Patient currently on IV heparin. Patient denies any chest pain. Patient's abdominal surgical history includes a tubal ligation. PAST MEDICAL HISTORY: See below. 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 REVIEW OF SYSTEMS: CONSTITUTIONAL: Denies fever or chills. HEENT: Denies blurred vision, vision changes, or eye pain. Denies hemoptysis CARDIOVASCULAR: Denies chest pain or pressure. RESPIRATORY: No shortness of breath. GASTROINTESTINAL: See HPI for pertinent findings HEMATOLOGIC: Denies bleeding disorders. GENITOURINARY: Denies any blood in urine or increased urinary frequency. SKIN: Denies pruitis. Denies rash. PHYSICAL EXAM: VITAL SIGNS: Reviewed GENERAL: Well-developed in no acute distress. HEENT: No sclera icterus. ABDOMEN: Soft. Nondistended. Tenderness with palpation in the right upper quadrant NEUROLOGIC: Alert and oriented. Cranial nerves II through XII grossly intact. LABORATORY DATA: WBC 17.8 down to 12 Hgb 13.8 platelets 322 INR 1.0 Sodium 129 potassium 4.1 creatinine 0.72 Total bilirubin 1.4-1.3 AST 63-50 ALT 26 alk phos 2:30 down to 196 Elevated troponins Lipase 74 IMAGING: Abdominal ultrasound cholelithiasis with thickened yu correlate for cholecystitis. Consider chronic cholecystitis given negative Chaidez sign. ASSESSMENT: 1. Acute cholecystitis. Ultrasound findings of cholelithiasis with thickened gallbladder wall and a dilated common bile duct 2. Possible choledocholithiasis with elevated bilirubin, LFTs and dilated CBD 3. Elevated troponins 4. History of atrial fibrillation on eliquis at home PLAN: -Patient scheduled for MRCP today for suspected choledocholithiasis -Elevated troponins being followed by cardiology service. Patient currently on IV heparin -Eliquis on Hold -Continue antibiotics -Currently NPO for MRCP -Continue pain management -Continue antiemetics as needed -Further recommendations forthcoming per surgeon Physician Cream Beater note has been reviewed by physician. Signing provider agrees with the documented findings, assessment, and plan of care. I have personally seen and examined the patient, reviewed the BATCH ROLLER OPERATOR /PAs history, exam and MDM and agree with the assessment and plan as written. Based on total visit time, I have performed more than 50% of the visit. As above: Patient admitted for possible choledocholithiasis with acute on chronic cholecystitis. Liver enzymes slightly improved today. MRCP results reviewed. Patient with large stone in the neck of the gallbladder. Common bile duct does not appear to be dilated unlike the report. Given the discrepancy between these 2 studies we'll order CT abdomen and pelvis. Await completion of cardiac workup and clearance. Tentatively will plan lap scopic cholecystectomy later during this hospital stay. Continue hold eloquis. Continue heparin drip. Continue antibiotics. Past Medical History Past Medical History: Atrial Fibrillation, CVA/TIA, GERD/Reflux, Hypertension, Myocardial Infarction (MD), Skin Disorder Additional Past Medical History / Comment(s): digenerative disc disease,HR skips a beat occas,blisterlike areas scattered that itch. CVA 06/2020 Last Myocardial Infarction Date:: 01/09/21 History of Any Multi-Drug Resistant Organisms: None Reported Past Surgical History: Tonsillectomy, Tubal Ligation Additional Past Surgical History / Comment(s): ganglion cyst removed lt hand, Right total knee Past Anesthesia/Blood Transfusion Reactions: No Reported Reaction Additional Past Anesthesia/Blood Transfusion Reaction / Comm: no hx blood transfusion Date of Last Stent Placement:: 01/09/21 Past Psychological History: No Psychological Hx Reported Smoking Status: Former smoker Past Alcohol Use History: None Reported Past Drug Use History: None Reported - Past Family History Mother Family Medical History: CVA/TIA, Hyperlipidemia Father Family Medical History: No Reported History Medications and Allergies Home Medications Medication Instructions Recorded Confirmed Type Apixaban [Eliquis] 5 mg PO BID 01/09/21 01/04/23 History Atorvastatin Calcium [Lipitor] 40 mg PO HS 01/09/21 01/04/23 History Cyanocobalamin [Vitamin B-12] 500 mcg PO DAILY 01/04/23 01/04/23 History Losartan [Cozaar] 25 mg PO BID 01/04/23 01/04/23 History Nitroglycerin Sl Tabs [Nitrostat] 0.4 mg SL Q5M PRN 01/04/23 01/04/23 History Allergies Allergy/AdvReac Type Severity Reaction Status Date / Time No Known Allergies Allergy Verified 01/04/23 15:53 Surgical - Exam Vital Signs Temp Pulse Resp BP Pulse Ox 98 F 87 18 128/80 97 01/04/23 15:51 01/04/23 15:51 01/04/23 15:51 01/04/23 15:51 01/04/23 15:51 Results - Labs 01/05/23 06:40 01/05/23 08:18 Abnormal Lab Results - Last 24 Hours (Table) 01/04/23 01/04/23 01/04/23 Range/Units 16:28 16:28 16:28 WBC 17.8 H (3.8-10.6) k/uL Hgb 16.4 H (11.4-16.0) gm/dL Hct 47.9 H (34.0-46.0) % Neutrophils # 15.2 H (1.3-7.7) k/uL Monocytes # 1.2 H (0-1.0) k/uL APTT (22.0-30.0) sec Sodium 127 L (137-145) mmol/L Chloride 91 L (98-107) mmol/L Carbon Dioxide (22-30) mmol/L BUN 18 H (7-17) mg/dL Total Bilirubin 1.4 H (0.2-1.3) mg/dL AST 63 H (14-36) U/L Alkaline Phosphatase 230 H (38-126) U/L Troponin I 0.079 H* (0.000-0.034) ng/mL Total Protein (6.3-8.2) g/dL Albumin (3.5-5.0) g/dL Urine Appearance (Clear) Urine Protein (Negative) Urine Ketones (Negative) Ur Leukocyte Esterase (Negative) Urine WBC (0-5) /hpf Urine WBC Clumps (None) /hpf Ur Squamous Epith Cells (0-4) /hpf Urine Bacteria (None) /hpf 01/04/23 01/05/23 01/05/23 Range/Units 21:28 00:16 00:16 WBC (3.8-10.6) k/uL Hgb (11.4-16.0) gm/dL Hct (34.0-46.0) % Neutrophils # (1.3-7.7) k/uL Monocytes # (0-1.0) k/uL APTT 30.1 H (22.0-30.0) sec Sodium (137-145) mmol/L Chloride (98-107) mmol/L Carbon Dioxide (22-30) mmol/L BUN (7-17) mg/dL Total Bilirubin (0.2-1.3) mg/dL AST (14-36) U/L Alkaline Phosphatase (38-126) U/L Troponin I 0.106 H* 0.119 H* (0.000-0.034) ng/mL Total Protein (6.3-8.2) g/dL Albumin (3.5-5.0) g/dL Urine Appearance (Clear) Urine Protein (Negative) Urine Ketones (Negative) Ur Leukocyte Esterase (Negative) Urine WBC (0-5) /hpf Urine WBC Clumps (None) /hpf Ur Squamous Epith Cells (0-4) /hpf Urine Bacteria (None) /hpf 01/05/23 01/05/23 01/05/23 Range/Units 00:52 06:40 06:40 WBC 12.0 H (3.8-10.6) k/uL Hgb (11.4-16.0) gm/dL Hct (34.0-46.0) % Neutrophils # 9.7 H (1.3-7.7) k/uL Monocytes # (0-1.0) k/uL APTT (22.0-30.0) sec Sodium 128 L (137-145) mmol/L Chloride 96 L (98-107) mmol/L Carbon Dioxide 21 L (22-30) mmol/L BUN (7-17) mg/dL Total Bilirubin (0.2-1.3) mg/dL AST (14-36) U/L Alkaline Phosphatase (38-126) U/L Troponin I (0.000-0.034) ng/mL Total Protein (6.3-8.2) g/dL Albumin (3.5-5.0) g/dL Urine Appearance Cloudy H (Clear) Urine Protein Trace H (Negative) Urine Ketones 1+ H (Negative) Ur Leukocyte Esterase Moderate H (Negative) Urine WBC 27 H (0-5) /hpf Urine WBC Clumps Rare H (None) /hpf Ur Squamous Epith Cells 13 H (0-4) /hpf Urine Bacteria Rare H (None) /hpf 01/05/23 01/05/23 Range/Units 06:40 08:18 WBC (3.8-10.6) k/uL Hgb (11.4-16.0) gm/dL Hct (34.0-46.0) % Neutrophils # (1.3-7.7) k/uL Monocytes # (0-1.0) k/uL APTT 40.8 H (22.0-30.0) sec Sodium 129 L (137-145) mmol/L Chloride 96 L (98-107) mmol/L Carbon Dioxide (22-30) mmol/L BUN (7-17) mg/dL Total Bilirubin (0.2-1.3) mg/dL AST 50 H (14-36) U/L Alkaline Phosphatase 196 H (38-126) U/L Troponin I (0.000-0.034) ng/mL Total Protein 6.0 L (6.3-8.2) g/dL Albumin 2.9 L (3.5-5.0) g/dL Urine Appearance (Clear) Urine Protein (Negative) Urine Ketones (Negative) Ur Leukocyte Esterase (Negative) Urine WBC (0-5) /hpf Urine WBC Clumps (None) /hpf Ur Squamous Epith Cells (0-4) /hpf Urine Bacteria (None) /hpf Diabetes panel 01/04/23 01/05/23 01/05/23 Range/Units 16:28 06:40 08:18 Sodium 127 L 128 L 129 L (137-145) mmol/L Potassium 4.4 3.9 4.1 (3.5-5.1) mmol/L Chloride 91 L 96 L 96 L (98-107) mmol/L Carbon Dioxide 24 21 L 22 (22-30) mmol/L BUN 18 H 13 13 (7-17) mg/dL Creatinine 0.96 0.79 0.72 (0.52-1.04) mg/dL Glucose 98 84 90 (74-99) mg/dL Calcium 9.0 8.6 8.6 (8.4-10.2) mg/dL AST 63 H 50 H (14-36) U/L ALT 31 26 (4-34) U/L Alkaline Phosphatase 230 H 196 H (38-126) U/L Total Protein 7.0 6.0 L (6.3-8.2) g/dL Albumin 3.6 2.9 L (3.5-5.0) g/dL Calcium panel 01/04/23 01/05/23 01/05/23 Range/Units 16:28 06:40 08:18 Calcium 9.0 8.6 8.6 (8.4-10.2) mg/dL Albumin 3.6 2.9 L (3.5-5.0) g/dL Pituitary panel 01/04/23 01/05/23 01/05/23 Range/Units 16:28 06:40 08:18 Sodium 127 L 128 L 129 L (137-145) mmol/L Potassium 4.4 3.9 4.1 (3.5-5.1) mmol/L Chloride 91 L 96 L 96 L (98-107) mmol/L Carbon Dioxide 24 21 L 22 (22-30) mmol/L BUN 18 H 13 13 (7-17) mg/dL Creatinine 0.96 0.79 0.72 (0.52-1.04) mg/dL Glucose 98 84 90 (74-99) mg/dL Calcium 9.0 8.6 8.6 (8.4-10.2) mg/dL Adrenal panel 01/04/23 01/05/23 01/05/23 Range/Units 16:28 06:40 08:18 Sodium 127 L 128 L 129 L (137-145) mmol/L Potassium 4.4 3.9 4.1 (3.5-5.1) mmol/L Chloride 91 L 96 L 96 L (98-107) mmol/L Carbon Dioxide 24 21 L 22 (22-30) mmol/L BUN 18 H 13 13 (7-17) mg/dL Creatinine 0.96 0.79 0.72 (0.52-1.04) mg/dL Glucose 98 84 90 (74-99) mg/dL Calcium 9.0 8.6 8.6 (8.4-10.2) mg/dL Total Bilirubin 1.4 H 1.3 (0.2-1.3) mg/dL AST 63 H 50 H (14-36) U/L ALT 31 26 (4-34) U/L Alkaline Phosphatase 230 H 196 H (38-126) U/L Total Protein 7.0 6.0 L (6.3-8.2) g/dL Albumin 3.6 2.9 L (3.5-5.0) g/dL
[2023-01-05 13:47] VITALS: BMI 41.5
--- NOTE | 2023-01-05 18:01 | MR ---
EXAMINATION TYPE: MR pancreas / mrcp wo/w con DATE OF EXAM: 01/05/2023 5:00 PM CLINICAL INDICATION:Female, 67 years old with history of Suspected choledocholithiasis; RUQ abdominal pain. COMPARISON: Ultrasound 01/04/2023. TECHNIQUE MRI ABDOMEN WITH CONTRAST: Multiplanar multi-sequence imaging was performed without and wit h IV contrast/gadolinium. The patient was given 11.5 cc Gadavist gadolinium intravenously and dynami c post-VIBE (volumetric interpolated breath-hold gradient recall echo) imaging was performed. IV Contrast: 11.5 cc Gadavist COMPARISON: No prior studies are available for comparison at [facility]. FINDINGS: MRCP: * The common bile duct at the level of the pancreatic head measures 4r mm in size. * The common hepatic duct measures 4 mm in size. * The pancreatic duct is normal. * The gallbladder is distended with multiple gallstones. Multiple gallstones layering in the fundus with a larger gallstone in the gallbladder neck measuring up to 37 mm. Gallbladder wall is thickened with surrounding high T2 fat stranding changes. Wall thickening measuring up to 12 mm in thickness. LOWER CHEST: No gross irregularity. ABDOMEN Liver: Heterogenous enhancement pattern of the liver favored to be secondary to known acute cholecyst itis with inflammation changes. Gallbladder and Bile ducts: Unremarkable. Pancreas: Unremarkable. Spleen: Unremarkable. Adrenal glands: Unremarkable. Kidneys: No obstructive uropathy or suspicious mass. Right renal cortical cyst. Stomach and Bowel: Second portion duodenal diverticula with gas. Scattered colonic diverticula presen t. Small hiatal hernia is present. Peritoneum: No evidence of pneumoperitoneum or free fluid. Vasculature: Unremarkable. No aortic aneurysm. Musculoskeletal: The osseous structures appear intact. Lymph Nodes: No gross evidence for lymphadenopathy. Abdominal wall: Unremarkable. IMPRESSION: 1. Distended gallbladder with surrounding edema and wall thickening. Large gallstone within the gallb ladder neck. Findings compatible with acute cholecystitis. Surgical consultation recommended. 2. No evidence to suggest ductal stricture, choledocholithiasis, or biliary ductal dilatation. 3. Colonic diverticulosis. 4. Small hiatal hernia.
--- NOTE | 2023-01-05 18:53 | CA ---
Transthoracic Echo Report Name: Kim Ryan Age: 67 Gender: F : 1955 Exam Date: 01/05/2023 10:20 Exam Location: [facility] Ht (in): 65 Wt (lb): 250 Ordering Physician: Misti Washington Attending/Referring Phys: [id number], Felix [employer] Line Mechanic Al Randle Procedure CPT: Indications: LVF Cardiac Hx: Technical Quality: Technically difficult study Contrast 1: Lumason Total Dose (mL): 5 Contrast 2: Total Dose (mL): MEASUREMENTS (Male / Female) Normal Values 2D ECHO LV Diastolic Volume MOD BP 63.9 cm??? 67 - 155 / 56 - 104 cm??? LV Systolic Volume MOD BP 32.5 cm??? 22 - 58 / 19 - 49 cm??? LV Ejection Fraction MOD BP 49.2 % >= 55 % LV Cardiac Index MOD BP 820.2 cm???/min???m??? LV Diastolic Volume MOD 4C 78.4 cm??? LV Systolic Volume MOD 4C 37.6 cm??? LV Ejection Fraction MOD 4C 52.0 % LV Cardiac Index MOD 4C 1063.6 cm???/min???m??? LV Diastolic Length 4C 7.2 cm LV Systolic Length 4C 6.1 cm LV Diastolic Volume MOD 2C 51.1 cm??? LV Systolic Volume MOD 2C 26.9 cm??? LV Ejection Fraction MOD 2C 47.4 % LV Cardiac Index MOD 2C 632.0 cm???/min???m??? LV Diastolic Length 2C 7.0 cm LV Systolic Length 2C 6.4 cm FINDINGS Left Ventricle Left ventricular ejection fraction is estimated at 50-55 %. Normal LV size and wall thickness. Right Ventricle Right Atrium Left Atrium Mitral Valve Aortic Valve Tricuspid Valve Pulmonic Valve Pericardium Aorta CONCLUSIONS Limited study for the ejection fraction Normal LV systolic function. Previewed by: Dr. Ten Jauregui MD (Electronically Signed) Final Date: 05 January 2023 18:52
[2023-01-06] MEDS: CYANOCOBALAMIN 500 MCG TAB PO SCH (09:37)
[2023-01-06] MEDS: PIPERACILLIN-TAZOBACTAM 3.375 GM in SODIUM CHLORIDE 0.9% 100 ML IVPB SCH ×2 (09:37→15:27)
[2023-01-06] MEDS: LOSARTAN 25 MG TAB PO SCH ×2 (09:37→20:40)
[2023-01-06 10:20] LABS: Basophils % (A) 0 %; Eosinophils # (A) 0.2 k/uL (0-0.7); Eosinophils % (A) 2 %; HCT 43.6 % (34.0-46.0); HGB 14.1 gm/dL (11.4-16.0); Lymphocytes # (A) 1.2 k/uL (1.0-4.8); Lymphocytes % (A) 11 %; MCH 29.3 pg (25.0-35.0); MCHC 32.4 g/dL (31.0-37.0); MCV 90.5 fL (80.0-100.0); Mean Platelet Volume 8.5; Monocytes # (A) 0.5 k/uL (0-1.0); Monocytes % (A) 4 %; Neutrophils # (A) 9.1 k/uL (1.3-7.7); Neutrophils % (A) 83 %; Platelet Count 420 k/uL (150-450); RBC 4.81 m/uL (3.80-5.40); RDW 13.9 % (11.5-15.5)
[2023-01-06 10:35] LABS: ALT 26 U/L (4-34); AST 47 U/L (14-36); African American GFR (CKD) >90 (>60 ml/min/1.73 sqM); Albumin 3.4 g/dL (3.5-5.0); Alkaline Phosphatase 215 U/L (38-126); Anion Gap 15 mmol/L; Blood Urea Nitrogen 9 mg/dL (7-17); Calcium 8.9 mg/dL (8.4-10.2); Carbon Dioxide 19 mmol/L (22-30); Chloride 98 mmol/L (98-107); Glucose 191 mg/dL (74-99); Non-African American GFR(CKD) 85 (>60 ml/min/1.73 sqM); Potassium 3.9 mmol/L (3.5-5.1); Sodium 132 mmol/L (137-145); Total Bilirubin 0.8 mg/dL (0.2-1.3)
--- NOTE | 2023-01-06 12:28 | P.PN ---
Subjective Progress Note Date: 01/06/23 Principal diagnosis: Abdominal pain, cholelithiasis Pt states abdominal pain completely resolved today, no n/v/d. no fevers/chills. Ric diet. Objective - Vital Signs Vital signs: Vital Signs Temp 97.8 F 01/06/23 11:43 Pulse 68 01/06/23 11:43 Resp 17 01/06/23 11:43 BP 118/76 01/06/23 11:43 Pulse Ox 96 01/06/23 11:43 FiO2 Intake & Output 01/05/23 01/06/23 01/06/23 18:59 06:59 18:59 Intake Total 83.35 144.581 373.661 Balance 83.35 144.581 373.661 Weight 113.398 kg Intake: Intake, IV Titration 83.35 144.581 193.661 Amount Heparin Sod,Pork in 0.45% 83.35 144.581 193.661 NaCl 25,000 unit In 0.45 % NaCl 1 250ml.bag @ 8.82 UNITS/KG/HR 10.002 mls/ hr IV .Q24H [facility] Rx#: [id number] Oral 180 Other: Voiding Method Toilet Toilet Toilet # Voids 2 2 - Constitutional General appearance: Present: average body habitus, no acute distress - EENT Eyes: Present: EOMI, normal appearance - Neck Neck: Present: normal ROM - Cardiovascular Rhythm: regular - Gastrointestinal Gastrointestinal Comment(s): no ttp, no rebound/guarding General gastrointestinal: Present: soft - Neurologic Neurologic: Present: CNII-XII intact - Musculoskeletal Musculoskeletal: Present: strength equal bilaterally - Psychiatric Psychiatric: Present: A&O x's 3 - Labs CBC & Chem 7: 01/06/23 08:20 01/06/23 08:20 Labs: Abnormal Lab Results - Last 24 Hours (Table) 01/05/23 01/06/23 01/06/23 Range/Units 14:42 08:20 08:20 WBC 11.0 H (3.8-10.6) k/uL Neutrophils # 9.1 H (1.3-7.7) k/uL APTT 75.8 H (22.0-30.0) sec Sodium 132 L (137-145) mmol/L Carbon Dioxide 19 L (22-30) mmol/L Glucose 191 H (74-99) mg/dL AST 47 H (14-36) U/L Alkaline Phosphatase 215 H (38-126) U/L Albumin 3.4 L (3.5-5.0) g/dL 01/06/23 Range/Units 08:20 WBC (3.8-10.6) k/uL Neutrophils # (1.3-7.7) k/uL APTT 93.7 H (22.0-30.0) sec Sodium (137-145) mmol/L Carbon Dioxide (22-30) mmol/L Glucose (74-99) mg/dL AST (14-36) U/L Alkaline Phosphatase (38-126) U/L Albumin (3.5-5.0) g/dL Microbiology - Last 24 Hours (Table) 01/04/23 18:30 Blood Culture - Preliminary Blood 01/04/23 18:45 Blood Culture - Preliminary Blood - Imaging and Cardiology US - abdomen: report reviewed MRI - abdomen: report reviewed Assessment and Plan Assessment: Pain likely due to ball-valve phenomenon when large gallstone gets wedged in neck of gallbladder. Cholecystectomy recommended with cleared by cardiology. Can be done as outpatient as long as patient is symptom free. (1) Cholelithiasis Current Visit: Yes Status: Acute Code(s): K80.20 - CALCULUS OF GALLBLADDER W/O CHOLECYSTITIS W/O OBSTRUCTION SNOMED Code(s): 769027992
--- NOTE | 2023-01-06 13:32 | P.PN ---
Subjective Progress Note Date: 01/06/23 PROGRESS NOTE The patient is feeling better today, her abdomen feels better. She was found to have cholelithiasis and cholecystitis. She has no chest discomfort, no nausea or vomiting. She has been evaluated by surgery for possible surgical intervention. She has been ambulating without difficulties. She had an echocardiogram that showed a preserved systolic function. She continues to be in sinus mechanism. She had mild troponin elevation on presentation most likely representing a type II event secondary to the acute cholecystitis. Medications: IV heparin, losartan 25 mg twice a day, atorvastatin 40 mg daily PHYSICAL EXAMINATION: Blood pressure 118/70 heart rate 60 LUNGS: Clear to auscultation HEART: Regular rate and rhythm, S1, S2. No S3. No systolic murmur ABDOMEN: Soft, nontender, no organomegaly EXTREMETIES: No edema LAB: Hemoglobin 14.1, potassium 3.9, BUN 9, creatinine 0.73 IMPRESSION: 1. Acute cholecystitis and cholelithiasis 2. Mild troponin elevation, type II event 3. History of CAD 4. Paroxysmal atrial fibrillation 5. History of hypertension 6. History of hyperlipidemia PLAN: 1. Continue present therapy 2. Continue IV heparin awaiting decision regarding surgery otherwise restart oral anticoagulation 3. Follow her renal functions 4. Depending on her progress further recommendations will be made. Objective - Vital Signs Vital signs: Vital Signs Temp 97.8 F 01/06/23 11:43 Pulse 68 01/06/23 11:43 Resp 17 01/06/23 11:43 BP 118/76 01/06/23 11:43 Pulse Ox 96 01/06/23 11:43 FiO2 Intake & Output 01/05/23 01/06/23 01/06/23 18:59 06:59 18:59 Intake Total 83.35 144.581 373.661 Balance 83.35 144.581 373.661 Weight 113.398 kg Intake: Intake, IV Titration 83.35 144.581 193.661 Amount Heparin Sod,Pork in 0.45% 83.35 144.581 193.661 NaCl 25,000 unit In 0.45 % NaCl 1 250ml.bag @ 8.82 UNITS/KG/HR 10.002 mls/ hr IV .Q24H [facility] Rx#: [id number] Oral 180 Other: Voiding Method Toilet Toilet Toilet # Voids 2 2 - Labs CBC & Chem 7: 01/06/23 08:20 01/06/23 08:20 Labs: Abnormal Lab Results - Last 24 Hours (Table) 01/05/23 01/06/23 01/06/23 Range/Units 14:42 08:20 08:20 WBC 11.0 H (3.8-10.6) k/uL Neutrophils # 9.1 H (1.3-7.7) k/uL APTT 75.8 H (22.0-30.0) sec Sodium 132 L (137-145) mmol/L Carbon Dioxide 19 L (22-30) mmol/L Glucose 191 H (74-99) mg/dL AST 47 H (14-36) U/L Alkaline Phosphatase 215 H (38-126) U/L Albumin 3.4 L (3.5-5.0) g/dL 01/06/23 Range/Units 08:20 WBC (3.8-10.6) k/uL Neutrophils # (1.3-7.7) k/uL APTT 93.7 H (22.0-30.0) sec Sodium (137-145) mmol/L Carbon Dioxide (22-30) mmol/L Glucose (74-99) mg/dL AST (14-36) U/L Alkaline Phosphatase (38-126) U/L Albumin (3.5-5.0) g/dL Microbiology - Last 24 Hours (Table) 01/04/23 18:30 Blood Culture - Preliminary Blood 01/04/23 18:45 Blood Culture - Preliminary Blood
--- NOTE | 2023-01-06 13:41 | P.PN ---
Subjective Progress Note Date: 01/06/23 patient is 67-year-old lady with past medical history significant for coronary artery disease, atrial fibrillation, hyperlipidemia and the ER because of right upper quadrant pain. Patient has been having this pain for the last 3 days. Pain is intermittent, sharp in character, nonradiating, no aggravating or relieving factors associated with this pain. Patient was complaining of nausea but no vomiting. Patient also noticed that his stools were yellow in color and looser in consistency. Denied any fever or chills. Denies any chest pain. Denied shortness of breath. Because of abdominal pain, patient went to her PCP who ordered some blood work. Because of persistent abdominal pain and the delay in getting those tests done, patient came to the ER Initial lab work done in the ER showed WBC 17.8, hemoglobin 16.4, platelet count 352, sodium 127, potassium 4.4, BUN 18, creatinine 0.96 total bilirubin 1.4, AST 63, ALT 31, 0.079 EKG done in the ER showed heart rate of 75, no ST segment elevation or T-wave inversion seen and a liquids Abdominal ultrasound done showed cholelithiasis with thickened yu correlate for cholecystitis. Consider chorionic cholecystitis given negative Chaidez sign Patient admitted to medicine service 01/06. Patient seen and examined. MRCP done showed distended gallbladder with surrounding edema and wall thickening, large gallstone within the gallbladder neck. Findings suspicious of acute cholecystitis. Denies any further episodes of abdominal pain. Denies any chest pain. REVIEW OF SYSTEMS: CONSTITUTIONAL: No fever, no malaise,. CARDIOVASCULAR: No chest pain, no palpitations, no syncope. PULMONARY: No shortness of breath, no cough, GASTROINTESTINAL: No diarrhea, no nausea, no vomiting, no abdominal pain. NEUROLOGICAL: No headaches, no weakness, PHYSICAL EXAMINATION: GENERAL: The patient is alert and oriented x3, not in any acute distress. Well developed, well nourished. HEENT: Pupils are round and equally reacting to light. EOMI. No scleral icterus. No conjunctival pallor. Normocephalic, atraumatic. No pharyngeal erythema. No thyromegaly. CARDIOVASCULAR: S1 and S2 present. No murmurs, rubs, or gallops. PULMONARY: Chest is clear to auscultation, no wheezing or crackles. ABDOMEN: Soft, nontender, nondistended, normoactive bowel sounds. No palpable organomegaly. MUSCULOSKELETAL: No joint swelling or deformity. EXTREMITIES: No cyanosis, clubbing, or pedal edema. NEUROLOGICAL: Gross neurological examination did not reveal any focal deficits. SKIN: No rashes. Assessment and plan Acute cholecystitis Right upper quadrant abdominal pain Elevated troponin History of atrial fibrillation History of Coronary artery disease Monitor vital signs Monitor CBC Monitor CMP Continue telemetry monitoring Continue pain management Continue IV fluids Continue pharmacy dose heparin Continue IV Zosyn MRCP done showed distended gallbladder with surrounding edema and wall thickening, large gallstone within the gallbladder neck. Findings suspicious of acute cholecystitis Surgery following, planning laparoscopic cholecystectomy later in the admission Cardiology following Labs and medication were reviewed.. Continue same treatment. Continue with symptomatic treatment. Resume home medication. Monitor labs and vitals. DVT and GI prophylaxis. Further recommendations as per clinical course of the patient Dictation was produced using [employer] dictation software. please excuse any grammatical, word or spelling errors. Objective - Vital Signs Vital signs: Vital Signs Temp 98.2 F 01/06/23 04:00 Pulse 60 01/06/23 04:00 Resp 16 01/06/23 04:00 BP 148/81 01/06/23 04:00 Pulse Ox 98 01/06/23 04:00 FiO2 Intake & Output 01/05/23 01/06/23 01/06/23 18:59 06:59 18:59 Intake Total 83.35 144.581 180 Balance 83.35 144.581 180 Weight 113.398 kg Intake: Intake, IV Titration 83.35 144.581 Amount Heparin Sod,Pork in 0.45% 83.35 144.581 NaCl 25,000 unit In 0.45 % NaCl 1 250ml.bag @ 8.82 UNITS/KG/HR 10.002 mls/ hr IV .Q24H COUNTS INCLUDE 234 BEDS AT THE [facility] Rx#: [id number] Oral 180 Other: Voiding Method Toilet Toilet # Voids 2 2 - Labs CBC & Chem 7: 01/06/23 08:20 01/06/23 08:20 Labs: Abnormal Lab Results - Last 24 Hours (Table) 01/05/23 Range/Units 14:42 APTT 75.8 H (22.0-30.0) sec Microbiology - Last 24 Hours (Table) 01/04/23 18:30 Blood Culture - Preliminary Blood 01/04/23 18:45 Blood Culture - Preliminary Blood
[2023-01-06] MEDS: HEPARIN SOD,PORK IN 0.45% NACL 25,000 UNIT in 0.45% NACL 1 250ML.BAG IV SCH (16:56)
[2023-01-06] MEDS: ATORVASTATIN 40 MG TAB PO SCH (20:40)
[2023-01-07] MEDS: PIPERACILLIN-TAZOBACTAM 3.375 GM in SODIUM CHLORIDE 0.9% 100 ML IVPB SCH ×4 (00:17→23:12)
[2023-01-07] MEDS: LOSARTAN 25 MG TAB PO SCH ×2 (08:27→21:52)
[2023-01-07] MEDS: CYANOCOBALAMIN 500 MCG TAB PO SCH (08:27)
[2023-01-07 10:40] LABS: HCT 44.5 % (34.0-46.0); HGB 14.6 gm/dL (11.4-16.0); MCH 29.7 pg (25.0-35.0); MCHC 32.8 g/dL (31.0-37.0); MCV 90.4 fL (80.0-100.0); Mean Platelet Volume 7.8; Platelet Count 466 k/uL (150-450); RBC 4.92 m/uL (3.80-5.40); RDW 13.9 % (11.5-15.5); WBC 9.2 k/uL (3.8-10.6)
--- NOTE | 2023-01-07 11:11 | P.PN ---
Subjective Progress Note Date: 01/07/23 PROGRESS NOTE The patient is feeling better today, her abdomen feels better. She was found to have cholelithiasis and cholecystitis. She has no chest discomfort, no nausea or vomiting. She has been evaluated by surgery for possible surgical intervention. She has been ambulating without difficulties. She had an echocardiogram that showed a preserved systolic function. She continues to be in sinus mechanism. She had mild troponin elevation on presentation most likely representing a type II event secondary to the acute cholecystitis. January 07: The patient feels better today, she denies any chest discomfort, dizziness or palpitations. She continues to be in sinus mechanism. She has no nausea or vomiting. She continues to be on IV heparin. The plan is to proceed with possible cholecystectomy tomorrow by Dr. Mccord Medications: IV heparin, losartan 25 mg twice a day, atorvastatin 40 mg daily PHYSICAL EXAMINATION: Blood pressure 121/79 heart rate 69 LUNGS: Clear to auscultation HEART: Regular rate and rhythm, S1, S2. No S3. No systolic murmur ABDOMEN: Soft, nontender, no organomegaly EXTREMETIES: No edema LAB: Hemoglobin 14.6, WBC 9.2 IMPRESSION: 1. Acute cholecystitis and cholelithiasis 2. Mild troponin elevation, type II event 3. History of CAD 4. Paroxysmal atrial fibrillation 5. History of hypertension 6. History of hyperlipidemia PLAN: 1. Continue present therapy 2. Continue IV heparin . 3. Patient is stable to undergo surgical intervention as planned tomorrow, discussed with surgeon 4. Depending on her progress further recommendations will be made. Objective - Vital Signs Vital signs: Vital Signs Temp 97.8 F 01/07/23 08:00 Pulse 69 01/07/23 08:00 Resp 17 01/07/23 08:00 BP 121/79 01/07/23 08:00 Pulse Ox 95 01/07/23 08:00 FiO2 Intake & Output 01/06/23 01/07/23 01/07/23 18:59 06:59 18:59 Intake Total 783.338 240 Balance 783.338 240 Intake: Intake, IV Titration 243.338 Amount Heparin Sod,Pork in 0.45% 243.338 NaCl 25,000 unit In 0.45 % NaCl 1 250ml.bag @ 8.82 UNITS/KG/HR 10.002 mls/ hr IV .Q24H [facility] Rx#: [id number] Oral 540 240 Other: Voiding Method Toilet # Voids 1 1 - Labs CBC & Chem 7: 01/07/23 10:00 01/06/23 08:20 Labs: Abnormal Lab Results - Last 24 Hours (Table) 01/06/23 01/06/23 01/07/23 Range/Units 08:20 17:59 10:00 Plt Count 466 H (150-450) k/uL APTT 93.7 H 60.9 H (22.0-30.0) sec Microbiology - Last 24 Hours (Table) 01/04/23 18:30 Blood Culture - Preliminary Blood 01/04/23 18:45 Blood Culture - Preliminary Blood
[2023-01-07 11:13] LABS: ALT 26 U/L (4-34); AST 52 U/L (14-36); African American GFR (CKD) 84 (>60 ml/min/1.73 sqM); Albumin 3.5 g/dL (3.5-5.0); Alkaline Phosphatase 172 U/L (38-126); Anion Gap 11 mmol/L; Blood Urea Nitrogen 5 mg/dL (7-17); Calcium 9.2 mg/dL (8.4-10.2); Carbon Dioxide 22 mmol/L (22-30); Chloride 101 mmol/L (98-107); Glucose 111 mg/dL (74-99); Non-African American GFR(CKD) 73 (>60 ml/min/1.73 sqM); Potassium 3.9 mmol/L (3.5-5.1); Sodium 134 mmol/L (137-145); Total Bilirubin 0.6 mg/dL (0.2-1.3); Total Protein 6.8 g/dL (6.3-8.2)
[2023-01-07 13:13] LABS: HCT 42.7 % (34.0-46.0); HGB 14.1 gm/dL (11.4-16.0); MCH 29.5 pg (25.0-35.0); MCHC 32.9 g/dL (31.0-37.0); MCV 89.7 fL (80.0-100.0); Mean Platelet Volume 7.2; Platelet Count 450 k/uL (150-450); RBC 4.77 m/uL (3.80-5.40); WBC 8.3 k/uL (3.8-10.6)
--- NOTE | 2023-01-07 13:13 | P.PN ---
Subjective Progress Note Date: 01/07/23 patient is 67-year-old lady with past medical history significant for coronary artery disease, atrial fibrillation, hyperlipidemia and the ER because of right upper quadrant pain. Patient has been having this pain for the last 3 days. Pain is intermittent, sharp in character, nonradiating, no aggravating or relieving factors associated with this pain. Patient was complaining of nausea but no vomiting. Patient also noticed that his stools were yellow in color and looser in consistency. Denied any fever or chills. Denies any chest pain. Denied shortness of breath. Because of abdominal pain, patient went to her PCP who ordered some blood work. Because of persistent abdominal pain and the delay in getting those tests done, patient came to the ER Initial lab work done in the ER showed WBC 17.8, hemoglobin 16.4, platelet count 352, sodium 127, potassium 4.4, BUN 18, creatinine 0.96 total bilirubin 1.4, AST 63, ALT 31, 0.079 EKG done in the ER showed heart rate of 75, no ST segment elevation or T-wave inversion seen and a liquids Abdominal ultrasound done showed cholelithiasis with thickened yu correlate for cholecystitis. Consider chorionic cholecystitis given negative Chaidez sign Patient admitted to medicine service 01/06. Patient seen and examined. MRCP done showed distended gallbladder with surrounding edema and wall thickening, large gallstone within the gallbladder neck. Findings suspicious of acute cholecystitis. Denies any further episodes of abdominal pain. Denies any chest pain. 01/07. Patient seen and examined in no acute issues overnight. No episodes of abdominal pain. Possible surgery tomorrow REVIEW OF SYSTEMS: CONSTITUTIONAL: No fever, no malaise,. CARDIOVASCULAR: No chest pain, no palpitations, no syncope. PULMONARY: No shortness of breath, no cough, GASTROINTESTINAL: No diarrhea, no nausea, no vomiting, no abdominal pain. NEUROLOGICAL: No headaches, no weakness, PHYSICAL EXAMINATION: GENERAL: The patient is alert and oriented x3, not in any acute distress. Well developed, well nourished. HEENT: Pupils are round and equally reacting to light. EOMI. No scleral icterus. No conjunctival pallor. Normocephalic, atraumatic. No pharyngeal erythema. No thyromegaly. CARDIOVASCULAR: S1 and S2 present. No murmurs, rubs, or gallops. PULMONARY: Chest is clear to auscultation, no wheezing or crackles. ABDOMEN: Soft, nontender, nondistended, normoactive bowel sounds. No palpable organomegaly. MUSCULOSKELETAL: No joint swelling or deformity. EXTREMITIES: No cyanosis, clubbing, or pedal edema. NEUROLOGICAL: Gross neurological examination did not reveal any focal deficits. SKIN: No rashes. Assessment and plan Acute cholecystitis Right upper quadrant abdominal pain Elevated troponin History of atrial fibrillation History of Coronary artery disease Monitor vital signs Monitor CBC Monitor CMP Continue telemetry monitoring Continue pain management Continue IV fluids Continue pharmacy dose heparin Continue IV Zosyn MRCP done showed distended gallbladder with surrounding edema and wall thickening, large gallstone within the gallbladder neck. Findings suspicious of acute cholecystitis Surgery following, planning laparoscopic cholecystectomy tomorrow Cardiology following Labs and medication were reviewed.. Continue same treatment. Continue with symptomatic treatment. Resume home medication. Monitor labs and vitals. DVT and GI prophylaxis. Further recommendations as per clinical course of the patient Dictation was produced using [employer] dictation software. please excuse any grammatical, word or spelling errors. Objective - Vital Signs Vital signs: Vital Signs Temp 97.8 F 01/07/23 08:00 Pulse 69 01/07/23 08:00 Resp 17 01/07/23 08:00 BP 121/79 01/07/23 08:00 Pulse Ox 95 01/07/23 08:00 FiO2 Intake & Output 01/06/23 01/07/23 01/07/23 18:59 06:59 18:59 Intake Total 783.338 Balance 783.338 Intake: Intake, IV Titration 243.338 Amount Heparin Sod,Pork in 0.45% 243.338 NaCl 25,000 unit In 0.45 % NaCl 1 250ml.bag @ 8.82 UNITS/KG/HR 10.002 mls/ hr IV .Q24H [facility] Rx#: [id number] Oral 540 Other: Voiding Method Toilet # Voids 1 1 - Labs CBC & Chem 7: 01/07/23 10:00 01/07/23 10:00 Labs: Abnormal Lab Results - Last 24 Hours (Table) 01/06/23 01/06/23 01/06/23 Range/Units 08:20 08:20 08:20 WBC 11.0 H (3.8-10.6) k/uL Neutrophils # 9.1 H (1.3-7.7) k/uL APTT 93.7 H (22.0-30.0) sec Sodium 132 L (137-145) mmol/L Carbon Dioxide 19 L (22-30) mmol/L Glucose 191 H (74-99) mg/dL AST 47 H (14-36) U/L Alkaline Phosphatase 215 H (38-126) U/L Albumin 3.4 L (3.5-5.0) g/dL 01/06/23 Range/Units 17:59 WBC (3.8-10.6) k/uL Neutrophils # (1.3-7.7) k/uL APTT 60.9 H (22.0-30.0) sec Sodium (137-145) mmol/L Carbon Dioxide (22-30) mmol/L Glucose (74-99) mg/dL AST (14-36) U/L Alkaline Phosphatase (38-126) U/L Albumin (3.5-5.0) g/dL Microbiology - Last 24 Hours (Table) 01/04/23 18:30 Blood Culture - Preliminary Blood 01/04/23 18:45 Blood Culture - Preliminary Blood
--- NOTE | 2023-01-07 15:29 | P.PN ---
Subjective Progress Note Date: 01/07/23 CHIEF COMPLAINT: Cholecystitis HISTORY OF PRESENT ILLNESS: The patient is a 67-year-old female with c holecystitis, morbid obesity, atrial fibrillation reports moderate right upper quadrant abdominal pain upon admission. Today, she reports no abdominal pain. She is tolerating diet. She is on heparin drip. Patient has been cleared to undergo cholecystectomy per cardiology. ROS: No reports of nausea and vomiting. No fevers or chills. No new chest pain. No productive sputum PHYSICAL EXAM: VITAL SIGNS: Reviewed CONSTITUTIONAL: Well developed and in no acute distress. EYES: Conjuctivae without sclera icterus. Extraocular movements grossly intact. HEAD, EARS, NOSE, THROAT: Moist buccal mucosa. Head is atraumatic, normocephalic. Hears conversational speech. No nasal drainage. RESPIRATORY: Non-labored respirations and equal bilateral excursions. CARDIOVASCULAR: Palpable 2+ radial pulses. ABDOMEN: Obese, nontender. No peritonitis. MUSCULOSKELETAL: No gross deformity of the lower extremities noted. No clubbing. No cyanosis. SKIN: Good skin turgor. Well perfused. NEUROLOGIC: Cranial nerves II through XII grossly intact. No focal or lateralizing signs. PSYCH: Appropriate affect. Alert and oriented to person, place and time. CLINICAL LABS: Reviewed. WBC normal. LFTs elevated. ASSESSMENT: 1. Symptomatic gallstones with cholecystitis 2. Morbid obesity due to excess calories, BMI 41.6 3. Atrial fibrillation PLAN: 1. She reports no abdominal pain. 2. Continue zosyn and heparin gtt. 3. She is elevated risk of complications with blood thinners for bleeding. 4. Hold heparin drip at midnight Objective - Vital Signs Vital signs: Vital Signs Temp 97.4 F L 01/07/23 12:00 Pulse 72 01/07/23 12:00 Resp 18 01/07/23 12:00 BP 120/66 01/07/23 12:00 Pulse Ox 97 01/07/23 12:00 FiO2 Intake & Output 01/06/23 01/07/23 01/07/23 18:59 06:59 18:59 Intake Total 783.338 634.876 Balance 783.338 634.876 Intake: Intake, IV Titration 243.338 214.876 Amount Heparin Sod,Pork in 0.45% 243.338 214.876 NaCl 25,000 unit In 0.45 % NaCl 1 250ml.bag @ 8.82 UNITS/KG/HR 10.002 mls/ hr IV .Q24H [facility] Rx#: [id number] Oral 540 420 Other: Voiding Method Toilet # Voids 1 1 2 - Labs CBC & Chem 7: 01/07/23 12:51 01/07/23 10:00 Labs: Abnormal Lab Results - Last 24 Hours (Table) 01/06/23 01/07/23 01/07/23 Range/Units 17:59 10:00 10:00 Plt Count 466 H (150-450) k/uL APTT 60.9 H 48.7 H (22.0-30.0) sec Sodium (137-145) mmol/L BUN (7-17) mg/dL Glucose (74-99) mg/dL AST (14-36) U/L Alkaline Phosphatase (38-126) U/L 01/07/23 Range/Units 10:00 Plt Count (150-450) k/uL APTT (22.0-30.0) sec Sodium 134 L (137-145) mmol/L BUN 5 L (7-17) mg/dL Glucose 111 H (74-99) mg/dL AST 52 H (14-36) U/L Alkaline Phosphatase 172 H (38-126) U/L Microbiology - Last 24 Hours (Table) 01/04/23 18:30 Blood Culture - Preliminary Blood 01/04/23 18:45 Blood Culture - Preliminary Blood
[2023-01-07] MEDS: HEPARIN SOD,PORK IN 0.45% NACL 25,000 UNIT in 0.45% NACL 1 250ML.BAG IV SCH (16:59)
[2023-01-07] MEDS: ATORVASTATIN 40 MG TAB PO SCH (21:52)
[2023-01-08] MEDS: PIPERACILLIN-TAZOBACTAM 3.375 GM in SODIUM CHLORIDE 0.9% 100 ML IVPB SCH ×3 (09:02→23:54)
[2023-01-08] MEDS: LOSARTAN 25 MG TAB PO SCH ×2 (09:03→20:31)
[2023-01-08] MEDS: CYANOCOBALAMIN 500 MCG TAB PO SCH (09:03)
[2023-01-08] MEDS ORDERED: LACTATED RINGERS 1,000 ML IV ONE ×2 (10:32→13:16)
[2023-01-08] MEDS ORDERED: ONDANSETRON 4 MG/2 ML VIAL IVP ONE (10:41)
[2023-01-08] MEDS ORDERED: DEXAMETHASONE SOD PHOSPHATE 4 MG/ML 1 ML VIAL IVP ONE (10:42)
--- NOTE | 2023-01-08 11:29 | P.PN ---
Subjective Progress Note Date: 01/08/23 PROGRESS NOTE The patient is feeling better today, her abdomen feels better. She was found to have cholelithiasis and cholecystitis. She has no chest discomfort, no nausea or vomiting. She has been evaluated by surgery for possible surgical intervention. She has been ambulating without difficulties. She had an echocardiogram that showed a preserved systolic function. She continues to be in sinus mechanism. She had mild troponin elevation on presentation most likely representing a type II event secondary to the acute cholecystitis. January 07: The patient feels better today, she denies any chest discomfort, dizziness or palpitations. She continues to be in sinus mechanism. She has no nausea or vomiting. She continues to be on IV heparin. The plan is to proceed with possible cholecystectomy tomorrow by Dr. Mccord January 08: The patient feels well this morning, she is scheduled to undergo cholecystectomy. She denies any chest discomfort, dizziness or palpitations. She denies any nausea or vomiting. Medications: IV heparin, losartan 25 mg twice a day, atorvastatin 40 mg daily PHYSICAL EXAMINATION: Blood pressure 153/70 heart rate 90 LUNGS: Clear to auscultation HEART: Regular rate and rhythm, S1, S2. No S3. No systolic murmur ABDOMEN: Soft, nontender, no organomegaly EXTREMETIES: No edema LAB: Hemoglobin 14.1, WBC 8.3 IMPRESSION: 1. Acute cholecystitis and cholelithiasis 2. Mild troponin elevation, type II event 3. History of CAD 4. Paroxysmal atrial fibrillation 5. History of hypertension 6. History of hyperlipidemia PLAN: 1. Continue present therapy 2. Continue IV heparin post op and once stable reinitiate treatment with oral anticoagulation. 3. Depending on her progress further recommendations will be made Objective - Vital Signs Vital signs: Vital Signs Temp 97.6 F 01/08/23 08:15 Pulse 96 01/08/23 10:33 Resp 20 01/08/23 10:33 BP 153/70 01/08/23 10:33 Pulse Ox 97 01/08/23 10:33 FiO2 Intake & Output 01/07/23 01/08/23 01/08/23 18:59 06:59 18:59 Intake Total 840.548 Balance 840.548 Intake: Intake, IV Titration 240.548 Amount Heparin Sod,Pork in 0.45% 240.548 NaCl 25,000 unit In 0.45 % NaCl 1 250ml.bag @ 8.82 UNITS/KG/HR 10.002 mls/ hr IV .Q24H [facility] Rx#: [id number] Oral 600 Other: Voiding Method Toilet Toilet # Voids 2 1 - Labs CBC & Chem 7: 01/07/23 12:51 01/07/23 10:00 Labs: Microbiology - Last 24 Hours (Table) 01/04/23 18:30 Blood Culture - Preliminary Blood 01/04/23 18:45 Blood Culture - Preliminary Blood
[2023-01-08] MEDS ORDERED: GLYCOPYRROLATE 0.2 MG/ML 2 ML VIAL ONE (11:44)
[2023-01-08] MEDS ORDERED: MIDAZOLAM 2 MG/2 ML VIAL ONE (11:44)
[2023-01-08] MEDS ORDERED: LIDOCAINE 2% INJ 20 MG/ML (2 ML VIAL) ONE (11:44)
[2023-01-08] MEDS ORDERED: ROCURONIUM 10 MG/ML (5 ML VIAL) IV ONE (11:44)
[2023-01-08] MEDS ORDERED: HYDROmorphone (PF) 1 MG/ML ONE (11:44)
[2023-01-08] MEDS ORDERED: NEOSTIGMINE 1 MG/ML 10 ML VIAL ONE (11:44)
[2023-01-08] MEDS ORDERED: SUCCINYLCHOLINE CHLORIDE 200 MG/10 ML VIAL IV ONE (11:44)
[2023-01-08] MEDS ORDERED: fentaNYL (PF) 50 MCG/ML 2 ML AMP ONE (11:44)
[2023-01-08] MEDS ORDERED: PROPOFOL 10 MG/ML 20 ML VIAL IV ONE (11:44)
--- NOTE | 2023-01-08 11:50 | P.PN ---
Progress Note - Text Progress Note Date: 01/08/23 Patient was last seen on Sunday. On Sunday and Sunday the patient's pain gradually resolved and is now gone. The MRCP showed no evidence of common bile duct stone. There is a large stone in the gallbladder neck likely causing partial obstruction of the common hepatic duct. Her labs have improved. Spoke with cardiology who has cleared the patient for surgery with moderate risk. Options reviewed with the patient and family. Will proceed with laparoscopic, possible open cholecystectomy at this time. Risks of bleeding, infection, bile leak, bile duct injury, retained common bile duct stone, trocar injury, conversion to an open procedure, hernia, anesthesia related complications were reviewed. The patient understands and wishes to proceed.
[2023-01-08] MEDS ORDERED: LIDOCAINE 0.5%-EPI 1:200,000 50 ML VIAL SQ ONE (12:10)
[2023-01-08] MEDS ORDERED: traMADol 50 MG TAB PO PRN (13:28)
[2023-01-08] MEDS ORDERED: ACETAMINOPHEN TAB 325 MG TAB PO PRN (13:28)
--- NOTE | 2023-01-08 13:28 | P.OP ---
Date of Procedure: 01/08/23 Procedure(s) Performed: PREOPERATIVE DIAGNOSIS: Acute cholecystitis POSTOPERATIVE DIAGNOSIS: Same PROCEDURE: Laparoscopic cholecystectomy SURGEON: Suri EBL: 25 mL ANESTHESIA: Gen. COMPLICATIONS: None OPERATIVE PROCEDURE: The patient was brought and placed on the operating room table in the supine position. The patient was placed under general anesthesia at that time. The abdomen was prepped and draped in the usual sterile fashion. A small vertical infraumbilical incision was made. The fascia was grasped with the Chucky forceps. The fascia was retracted anteriorly. The Veress needle was advanced into the peritoneal cavity. The saline drop test was normal. Insufflation took place up to 15 mmHg. A 5 mm optical trocar was advanced and the peritoneal cavity. 2 additional 5 mm trochars were placed in the right upper quadrant under direct visualization. A 12 mm trocar was advanced into the epigastric incision site. The gallbladder was acutely inflamed. The omentum was adherent to the gallbladder and this was able to be lysed using both blunt dissection and LigaSure. The gallbladder was quite tense. The gallbladder was opened and the contents were evacuated. The gallbladder was retracted superiorly and laterally. The peritoneum overlying the infundibulum was bluntly dissected. A large stone in the neck of the gallbladder was able to be pushed back into the body of the gallbladder. This assisted with retracting the infundibulum. The patient's cystic duct was visualized. The junction between the cystic duct common and hepatic duct was identified. The critical view of safety was achieved after blunt dissection. The cystic duct was then divided after placement of a 2-0 Ethibond stitch and a 12 mm clip on the patient's side as well as a 12 mm clip on the specimen side. The cystic artery was identified and clipped as well. A small vessel was seen along the gallbladder fossa and clipped as well. The gallbladder was then removed from the liver bed using electrocautery. The gallbladder was then removed from the epigastric trocar site with an Endo Catch bag. The fascia was lengthened using electrocautery in order to remove the gallbladder. The gallbladder fossa was irrigated with saline. There was no evidence of any bleeding or biliary drainage seen. A d rain was placed in the gallbladder fossa exiting from the lateral 5 mm trocar site. This was sutured in place using a 3-0 silk stitch. The fascia at the 12 millimeter site was closed using a running 0 Vicryl stitch. The trochars were then removed. The skin at all 3 sites was closed using a 4-0 Monocryl stitch. Skin glue was utilized on the incision sites. At the end of this procedure the sponge and needle counts were correct. DISPOSITION: Stable to the recovery room
--- NOTE | 2023-01-08 13:55 | P.PN ---
Subjective Progress Note Date: 01/08/23 patient is 67-year-old lady with past medical history significant for coronary artery disease, atrial fibrillation, hyperlipidemia and the ER because of right upper quadrant pain. Patient has been having this pain for the last 3 days. Pain is intermittent, sharp in character, nonradiating, no aggravating or relieving factors associated with this pain. Patient was complaining of nausea but no vomiting. Patient also noticed that his stools were yellow in color and looser in consistency. Denied any fever or chills. Denies any chest pain. Denied shortness of breath. Because of abdominal pain, patient went to her PCP who ordered some blood work. Because of persistent abdominal pain and the delay in getting those tests done, patient came to the ER Initial lab work done in the ER showed WBC 17.8, hemoglobin 16.4, platelet count 352, sodium 127, potassium 4.4, BUN 18, creatinine 0.96 total bilirubin 1.4, AST 63, ALT 31, 0.079 EKG done in the ER showed heart rate of 75, no ST segment elevation or T-wave inversion seen and a liquids Abdominal ultrasound done showed cholelithiasis with thickened yu correlate for cholecystitis. Consider chorionic cholecystitis given negative Chaidez sign Patient admitted to medicine service 01/06. Patient seen and examined. MRCP done showed distended gallbladder with surrounding edema and wall thickening, large gallstone within the gallbladder neck. Findings suspicious of acute cholecystitis. Denies any further episodes of abdominal pain. Denies any chest pain. 01/07. Patient seen and examined in no acute issues overnight. No episodes of abdominal pain. Possible surgery tomorrow 01/08. Patient seen and examined. NPO going for surgery today REVIEW OF SYSTEMS: CONSTITUTIONAL: No fever, no malaise,. CARDIOVASCULAR: No chest pain, no palpitations, no syncope. PULMONARY: No shortness of breath, no cough, GASTROINTESTINAL: No diarrhea, no nausea, no vomiting, no abdominal pain. NEUROLOGICAL: No headaches, no weakness, PHYSICAL EXAMINATION: GENERAL: The patient is alert and oriented x3, not in any acute distress. Well developed, well nourished. HEENT: Pupils are round and equally reacting to light. EOMI. No scleral icterus. No conjunctival pallor. Normocephalic, atraumatic. No pharyngeal erythema. No thyromegaly. CARDIOVASCULAR: S1 and S2 present. No murmurs, rubs, or gallops. PULMONARY: Chest is clear to auscultation, no wheezing or crackles. ABDOMEN: Soft, nontender, nondistended, normoactive bowel sounds. No palpable organomegaly. MUSCULOSKELETAL: No joint swelling or deformity. EXTREMITIES: No cyanosis, clubbing, or pedal edema. NEUROLOGICAL: Gross neurological examination did not reveal any focal deficits. SKIN: No rashes. Assessment and plan Acute cholecystitis Right upper quadrant abdominal pain Elevated troponin History of atrial fibrillation History of Coronary artery disease Monitor vital signs Monitor CBC Monitor CMP Continue telemetry monitoring Continue pain management Continue IV fluids Continue pharmacy dose heparin, currently on hold in preparation for surgery Continue IV Zosyn MRCP done showed distended gallbladder with surrounding edema and wall thickening, large gallstone within the gallbladder neck. Findings suspicious of acute cholecystitis Surgery following, planning laparoscopic cholecystectomy today Cardiology following Labs and medication were reviewed.. Continue same treatment. Continue with symptomatic treatment. Resume home medication. Monitor labs and vitals. DVT and GI prophylaxis. Further recommendations as per clinical course of the patient Dictation was produced using 51 Auto dictation software. please excuse any grammatical, word or spelling errors. Objective - Vital Signs Vital signs: Vital Signs Temp 97.6 F 01/08/23 08:15 Pulse 89 01/08/23 08:30 Resp 18 01/08/23 08:30 BP 155/86 01/08/23 08:15 Pulse Ox 96 01/08/23 08:15 FiO2 Intake & Output 01/07/23 01/08/23 01/08/23 18:59 06:59 18:59 Intake Total 840.548 Balance 840.548 Intake: Intake, IV Titration 240.548 Amount Heparin Sod,Pork in 0.45% 240.548 NaCl 25,000 unit In 0.45 % NaCl 1 250ml.bag @ 8.82 UNITS/KG/HR 10.002 mls/ hr IV .Q24H [facility] Rx#: [id number] Oral 600 Other: Voiding Method Toilet Toilet # Voids 2 1 - Labs CBC & Chem 7: 01/07/23 12:51 01/07/23 10:00 Labs: Abnormal Lab Results - Last 24 Hours (Table) 01/07/23 01/07/23 01/07/23 Range/Units 10:00 10:00 10:00 Plt Count 466 H (150-450) k/uL APTT 48.7 H (22.0-30.0) sec Sodium 134 L (137-145) mmol/L BUN 5 L (7-17) mg/dL Glucose 111 H (74-99) mg/dL AST 52 H (14-36) U/L Alkaline Phosphatase 172 H (38-126) U/L Microbiology - Last 24 Hours (Table) 01/04/23 18:30 Blood Culture - Preliminary Blood 01/04/23 18:45 Blood Culture - Preliminary Blood
[2023-01-08 15:07] LABS: HCT 42.1 % (34.0-46.0); HGB 13.8 gm/dL (11.4-16.0); MCH 29.9 pg (25.0-35.0); MCHC 32.8 g/dL (31.0-37.0); Platelet Count 456 k/uL (150-450); RBC 4.63 m/uL (3.80-5.40); WBC 7.7 k/uL (3.8-10.6)
[2023-01-08 15:22] LABS: ALT 43 U/L (4-34); AST 86 U/L (14-36); African American GFR (CKD) 84 (>60 ml/min/1.73 sqM); Alkaline Phosphatase 153 U/L (38-126); Anion Gap 8 mmol/L; Blood Urea Nitrogen 3 mg/dL (7-17); Calcium 9.1 mg/dL (8.4-10.2); Carbon Dioxide 25 mmol/L (22-30); Chloride 102 mmol/L (98-107); Glucose 140 mg/dL (74-99); Non-African American GFR(CKD) 73 (>60 ml/min/1.73 sqM); Potassium 4.3 mmol/L (3.5-5.1); Sodium 135 mmol/L (137-145); Total Bilirubin 0.6 mg/dL (0.2-1.3); Total Protein 6.2 g/dL (6.3-8.2)
[2023-01-08] MEDS: HEPARIN SODIUM,PORCINE 5,000 UNIT/ML 1 ML VIAL SQ SCH ×2 (16:52→23:54)
[2023-01-08] MEDS: ATORVASTATIN 40 MG TAB PO SCH (20:31)
[2023-01-08] MEDS: HYDROcodone/APAP 5-325MG 1 EACH TAB PO PRN (20:31)
[2023-01-09] MEDS: LOSARTAN 25 MG TAB PO SCH ×2 (07:44→19:44)
[2023-01-09] MEDS: CYANOCOBALAMIN 500 MCG TAB PO SCH (07:44)
[2023-01-09] MEDS: HEPARIN SODIUM,PORCINE 5,000 UNIT/ML 1 ML VIAL SQ SCH ×3 (07:44→23:17)
[2023-01-09] MEDS: PIPERACILLIN-TAZOBACTAM 3.375 GM in SODIUM CHLORIDE 0.9% 100 ML IVPB SCH ×3 (07:45→23:18)
[2023-01-09 08:11] LABS: Basophils % (A) 0 %; Eosinophils # (A) 0.1 k/uL (0-0.7); Eosinophils % (A) 1 %; HCT 43.1 % (34.0-46.0); HGB 14.2 gm/dL (11.4-16.0); Lymphocytes # (A) 1.3 k/uL (1.0-4.8); Lymphocytes % (A) 9 %; MCH 29.6 pg (25.0-35.0); MCHC 32.9 g/dL (31.0-37.0); MCV 89.9 fL (80.0-100.0); Mean Platelet Volume 7.6; Monocytes # (A) 0.6 k/uL (0-1.0); Monocytes % (A) 4 %; Neutrophils # (A) 12.9 k/uL (1.3-7.7); Neutrophils % (A) 86 %; Platelet Count 390 k/uL (150-450); RBC 4.79 m/uL (3.80-5.40); RDW 14.2 % (11.5-15.5)
[2023-01-09 08:34] LABS: ALT 38 U/L (4-34); African American GFR (CKD) 89 (>60 ml/min/1.73 sqM); Albumin 3.1 g/dL (3.5-5.0); Anion Gap 6 mmol/L; Blood Urea Nitrogen 4 mg/dL (7-17); Calcium 9.2 mg/dL (8.4-10.2); Carbon Dioxide 23 mmol/L (22-30); Chloride 104 mmol/L (98-107); Glucose 115 mg/dL (74-99); Non-African American GFR(CKD) 77 (>60 ml/min/1.73 sqM); Potassium 4.9 mmol/L (3.5-5.1); Sodium 133 mmol/L (137-145); Total Bilirubin 0.7 mg/dL (0.2-1.3); Total Protein 6.1 g/dL (6.3-8.2)
[2023-01-09 08:35] LABS: AST 72 U/L (14-36); Alkaline Phosphatase 125 U/L (38-126)
--- NOTE | 2023-01-09 13:45 | P.PN ---
Subjective Progress Note Date: 01/09/23 Principal diagnosis: Acute cholecystitis Patient doing well today. Pain is mild she says. Worse with deep inspiration. BERNADINE drain serosanguineous. Tolerating liquids. No nausea or vomiting. Labs noted. Objective - Vital Signs Vital signs: Vital Signs Temp 97.3 F L 01/09/23 11:33 Pulse 57 L 01/09/23 11:33 Resp 18 01/09/23 11:33 BP 132/73 01/09/23 11:33 Pulse Ox 97 01/09/23 11:33 FiO2 Intake & Output 01/08/23 01/09/23 01/09/23 18:59 06:59 18:59 Intake Total 1400 Output Total 310 430 18 Balance 1090 -430 -18 Weight 113.398 kg Intake: IV 1400 Output: Drainage 30 18 Right Anterior Abdomen 30 18 Urine 300 400 Estimated Blood Loss 10 Other: Voiding Method Toilet Toilet Toilet # Voids 1 - Exam Abdomen: Soft, nondistended, incisions clean and dry, drain in place, minimal tenderness - Labs CBC & Chem 7: 01/09/23 07:58 01/09/23 07:58 Labs: Abnormal Lab Results - Last 24 Hours (Table) 01/08/23 01/08/23 01/09/23 Range/Units 14:35 14:35 07:58 WBC 15.0 H (3.8-10.6) k/uL Plt Count 456 H (150-450) k/uL Neutrophils # 12.9 H (1.3-7.7) k/uL Sodium 135 L (137-145) mmol/L BUN 3 L (7-17) mg/dL Glucose 140 H (74-99) mg/dL AST 86 H (14-36) U/L ALT 43 H (4-34) U/L Alkaline Phosphatase 153 H (38-126) U/L Total Protein 6.2 L (6.3-8.2) g/dL Albumin 3.0 L (3.5-5.0) g/dL 01/09/23 Range/Units 07:58 WBC (3.8-10.6) k/uL Plt Count (150-450) k/uL Neutrophils # (1.3-7.7) k/uL Sodium 133 L (137-145) mmol/L BUN 4 L (7-17) mg/dL Glucose 115 H (74-99) mg/dL AST 72 H (14-36) U/L ALT 38 H (4-34) U/L Alkaline Phosphatase (38-126) U/L Total Protein 6.1 L (6.3-8.2) g/dL Albumin 3.1 L (3.5-5.0) g/dL Assessment and Plan (1) Acute cholecystitis due to biliary calculus Narrative/Plan: Advance to low-fat diet. Continue analgesics. Ambulate. Stable for discharge tomorrow if doing well. Anticipate restarting anticoagulation 01/11. Current Visit: Yes Status: Acute Code(s): K80.00 - CALCULUS OF GALLBLADDER W ACUTE CHOLECYST W/O OBSTRUCTION SNOMED Code(s): 04464602364861
--- NOTE | 2023-01-09 14:07 | P.PN ---
Subjective HISTORY OF PRESENT ILLNESS: This is a 67-year-old female who is status post laparoscopic cholecystectomy. Patient examined this morning. She is sitting on the side of the bed. She denies chest pain or pressure. She denies shortness of breath. Vital signs are stable. Telemetry reveals sinus mechanism. PHYSICAL EXAM: VITAL SIGNS: Reviewed. GENERAL: Well-developed in no acute distress. NECK: Supple. No JVD or thyromegaly LUNGS: Respirations even and unlabored. Lungs essentially clear to auscultation bilaterally. HEART: Regular rate and rhythm. S1 and S2 heard. EXTREMITIES: Normal range of motion. No clubbing or cyanosis. Peripheral pulses intact. No lower extremity edema ASSESSMENT: Acute cholecystitis Abnormal troponins, secondary to above, no evidence of acute coronary syndrome History of coronary artery disease Paroxysmal atrial fibrillation Hypertension Hyperlipidemia PLAN: Case discussed with general surgery who has not cleared patient to resume anticoagulation. We will defer resuming anticoagulation to general surgery Continue additional cardiac medications Patient is currently stable from a cardiac perspective We will sign off. Please reconsult if needed. Nurse practitioner note has been reviewed by physician. Signing provider agrees with the documented findings, assessment, and plan of care. Objective - Vital Signs Vital signs: Vital Signs Temp 97.3 F L 01/09/23 11:33 Pulse 57 L 01/09/23 11:33 Resp 18 01/09/23 11:33 BP 132/73 01/09/23 11:33 Pulse Ox 97 01/09/23 11:33 FiO2 Intake & Output 01/08/23 01/09/23 01/09/23 18:59 06:59 18:59 Intake Total 1400 Output Total 310 430 18 Balance 1090 -430 -18 Weight 113.398 kg Intake: IV 1400 Output: Drainage 30 18 Right Anterior Abdomen 30 18 Urine 300 400 Estimated Blood Loss 10 Other: Voiding Method Toilet Toilet Toilet # Voids 1 - Labs CBC & Chem 7: 01/09/23 07:58 01/09/23 07:58 Labs: Abnormal Lab Results - Last 24 Hours (Table) 01/08/23 01/08/23 01/09/23 Range/Units 14:35 14:35 07:58 WBC 15.0 H (3.8-10.6) k/uL Plt Count 456 H (150-450) k/uL Neutrophils # 12.9 H (1.3-7.7) k/uL Sodium 135 L (137-145) mmol/L BUN 3 L (7-17) mg/dL Glucose 140 H (74-99) mg/dL AST 86 H (14-36) U/L ALT 43 H (4-34) U/L Alkaline Phosphatase 153 H (38-126) U/L Total Protein 6.2 L (6.3-8.2) g/dL Albumin 3.0 L (3.5-5.0) g/dL 01/09/23 Range/Units 07:58 WBC (3.8-10.6) k/uL Plt Count (150-450) k/uL Neutrophils # (1.3-7.7) k/uL Sodium 133 L (137-145) mmol/L BUN 4 L (7-17) mg/dL Glucose 115 H (74-99) mg/dL AST 72 H (14-36) U/L ALT 38 H (4-34) U/L Alkaline Phosphatase (38-126) U/L Total Protein 6.1 L (6.3-8.2) g/dL Albumin 3.1 L (3.5-5.0) g/dL
--- NOTE | 2023-01-09 18:52 | P.PN ---
Progress Note - Text Progress Note Date: 01/09/23 patient is 67-year-old lady with past medical history significant for coronary artery disease, atrial fibrillation, hyperlipidemia and the ER because of right upper quadrant pain. Patient has been having this pain for the last 3 days. Pain is intermittent, sharp in character, nonradiating, no aggravating or relieving factors associated with this pain. Patient was complaining of nausea but no vomiting. Patient also noticed that his stools were yellow in color and looser in consistency. Denied any fever or chills. Denies any chest pain. Denied shortness of breath. Because of abdominal pain, patient went to her PCP who ordered some blood work. Because of persistent abdominal pain and the delay in getting those tests done, patient came to the ER Initial lab work done in the ER showed WBC 17.8, hemoglobin 16.4, platelet count 352, sodium 127, potassium 4.4, BUN 18, creatinine 0.96 total bilirubin 1.4, AST 63, ALT 31, 0.079 EKG done in the ER showed heart rate of 75, no ST segment elevation or T-wave inversion seen and a liquids Abdominal ultrasound done showed cholelithiasis with thickened yu correlate for cholecystitis. Consider chorionic cholecystitis given negative Chaidez sign Patient admitted to medicine service 01/06. Patient seen and examined. MRCP done showed distended gallbladder with surrounding edema and wall thickening, large gallstone within the gallbladder neck. Findings suspicious of acute cholecystitis. Denies any further episodes of abdominal pain. Denies any chest pain. 01/07. Patient seen and examined in no acute issues overnight. No episodes of abdominal pain. Possible surgery tomorrow 01/08. Patient seen and examined. NPO going for surgery today January 09: I assumed care of patient today. Patient status post cholecystectomy. Having some right upper quadrant pain. Has a BERNADINE drain in place. Up in a chair. No nausea vomiting. Started on clear liquids. Active Medications Acetaminophen (Acetaminophen Tab 325 Mg Tab) 650 mg PO Q4HR PRN PRN Reason: Fever and/ or Pain Last Admin: 01/09/23 07:50 Dose: 650 mg Hydrocodone Bitart/Acetaminophen (Hydrocodone/Apap 5-325mg 1 Each Tab) 1 each PO Q4HR PRN PRN Reason: Pain Last Admin: 01/08/23 20:31 Dose: 1 each Atorvastatin Calcium (Atorvastatin 40 Mg Tab) 40 mg PO HS [facility] Last Admin: 01/08/23 20:31 Dose: 40 mg Cyanocobalamin (Cyanocobalamin 500 Mcg Tab) 500 mcg PO DAILY [facility] Last Admin: 01/09/23 07:44 Dose: 500 mcg Heparin Sodium (Porcine) (Heparin Sodium,Porcine 5,000 Unit/Ml 1 Ml Vial) 5,000 unit SQ Q8HR [facility] Last Admin: 01/09/23 15:29 Dose: 5,000 unit Piperacillin Sod/Tazobactam (Sod 3.375 gm/ Sodium Chloride) 100 mls @ 25 mls/hr IVPB Q8HR [facility]; Protocol Last Admin: 01/09/23 15:23 Dose: 25 mls/hr Losartan Potassium (Losartan 25 Mg Tab) 25 mg PO BID [facility] Last Admin: 01/09/23 07:44 Dose: 25 mg Morphine Sulfate (Morphine Sulfate 4 Mg/Ml Syringe) 4 mg IVP Q6HR PRN PRN Reason: Pain Naloxone HCl (Naloxone 0.4 Mg/Ml 1 Ml Vial) 0.2 mg IV Q2M PRN PRN Reason: Opioid Reversal Ondansetron HCl (Ondansetron 4 Mg/2 Ml Vial) 4 mg IVP Q8HR PRN PRN Reason: Nausea And Vomiting Tramadol HCl (Tramadol 50 Mg Tab) 50 mg PO Q6HR PRN PRN Reason: Breakthrough Pain On examination: VITAL SIGNS: [97.3, 57, 18, 132/73, 97% room air] GENERAL APPEARANCE: BMI 41.6, sitting up in a recliner awake not in distress HEENT: Normal external appearance of nose and ear. Oral cavity normal EYES: Pupils equal. Conjunctiva normal. NECK: JVD not raised. Mass not palpable. RESPIRATORY: Respiratory effort normal. Lungs clear to auscultation. CARDIOVASCULAR: First and second sounds normal. No edema. ABDOMEN: Soft. Liver and spleen not palpable. No tenderness. No mass palpable. Right upper quadrant tenderness. No guarding rigidity. BERNADINE drain. PSYCHIATRY: Alert and oriented x3. Mood and affect normal. INVESTIGATIONS, reviewed in the clinical context: January 09: White count 15 hemoglobin 14.2 platelets 390 sodium 133 potassium 4.9 creatinine 0.79 2-D echocardiogram: EF 50-55% Ultrasound abdomen: Gallstones with thickened yu. Large stone. CBD dilated. 1.4 cm. Assessment and plan -Acute cholecystitis, with gallstone Cholecystectomy by Dr. Mccord on January 08. BERNADINE drain in place. IV Zosyn Started on clear liquids today -Paroxysmal atrial fibrillation, currently in sinus rhythm: Rate controlled Resume eliquis when okay with surgery -Troponin anemia secondary to hemodynamic mismatch. From cholecystitis. No ACS Seen by oncology. No further intervention -CAD with a prior history of PA -Morbid obesity BMI 41.6 Weight loss measures -Essential hypertension Cozaar -Hyperlipidemia Lipitor Discussed with patient. Increase activity as tolerated. Clear liquids started.
[2023-01-09] MEDS: ATORVASTATIN 40 MG TAB PO SCH (19:44)
[2023-01-10] MEDS: HEPARIN SODIUM,PORCINE 5,000 UNIT/ML 1 ML VIAL SQ SCH ×3 (08:35→23:41)
[2023-01-10] MEDS: CYANOCOBALAMIN 500 MCG TAB PO SCH (08:35)
[2023-01-10] MEDS: LOSARTAN 25 MG TAB PO SCH ×2 (08:35→19:57)
[2023-01-10] MEDS: PIPERACILLIN-TAZOBACTAM 3.375 GM in SODIUM CHLORIDE 0.9% 100 ML IVPB SCH ×3 (08:35→23:41)
[2023-01-10] MEDS: HYDROcodone/APAP 5-325MG 1 EACH TAB PO PRN (08:51)
--- NOTE | 2023-01-10 13:41 | P.PN ---
Subjective Progress Note Date: 01/10/23 CHIEF COMPLAINT: Acute cholecystitis HISTORY OF PRESENT ILLNESS: Patient is postop day #2 status post laparoscopic cholecystectomy. Patient reports that she has pain with movement. She reports difficulty with ambulating. She denies any nausea or vomiting. Denies any flatus. Afebrile. PHYSICAL EXAM: VITAL SIGNS: Reviewed. GENERAL: Well-developed in no acute distress. ABDOMEN: Soft. Nondistended. Incisions clean and dry. Minimal tenderness at incision sites. BERNADINE drain serosanguineous output NEUROLOGIC: Alert and oriented. Cranial nerves II through XII grossly intact. ASSESSMENT: 1. Acute cholecystitis status post laparoscopic cholecystectomy PLAN: -Abdominal binder ordered for support -Consult PT OT to help with ambulation -Leukocytosis. Repeat CBC in a.m. -Continue antibiotics -Continue low-fat diet -Continue pain management -Anticipate restarting anticoagulation on 01/11 Physician Director Professional Services note has been reviewed by physician. Signing provider agrees with the documented findings, assessment, and plan of care. Objective - Vital Signs Vital signs: Vital Signs Temp 98 F 01/10/23 11:23 Pulse 58 L 01/10/23 11:23 Resp 18 01/10/23 11:23 BP 138/65 01/10/23 11:23 Pulse Ox 97 01/10/23 11:23 FiO2 Intake & Output 01/09/23 01/10/23 01/10/23 18:59 06:59 18:59 Intake Total 240 Output Total 56 500 40 Balance 184 -500 -40 Weight 113.398 kg Intake: Oral 240 Output: Drainage 56 40 Right Anterior Abdomen 56 40 Urine 500 Other: Voiding Method Toilet Toilet # Voids 1 - Labs CBC & Chem 7: 01/09/23 07:58 01/09/23 07:58 Labs: Microbiology - Last 24 Hours (Table) 01/04/23 18:30 Blood Culture - Final Blood 01/04/23 18:45 Blood Culture - Final Blood
--- NOTE | 2023-01-10 17:59 | P.PN ---
Progress Note - Text Progress Note Date: 01/10/23 patient is 67-year-old lady with past medical history significant for coronary artery disease, atrial fibrillation, hyperlipidemia and the ER because of right upper quadrant pain. Patient has been having this pain for the last 3 days. Pain is intermittent, sharp in character, nonradiating, no aggravating or relieving factors associated with this pain. Patient was complaining of nausea but no vomiting. Patient also noticed that his stools were yellow in color and looser in consistency. Denied any fever or chills. Denies any chest pain. Denied shortness of breath. Because of abdominal pain, patient went to her PCP who ordered some blood work. Because of persistent abdominal pain and the delay in getting those tests done, patient came to the ER Initial lab work done in the ER showed WBC 17.8, hemoglobin 16.4, platelet count 352, sodium 127, potassium 4.4, BUN 18, creatinine 0.96 total bilirubin 1.4, AST 63, ALT 31, 0.079 EKG done in the ER showed heart rate of 75, no ST segment elevation or T-wave inversion seen and a liquids Abdominal ultrasound done showed cholelithiasis with thickened yu correlate for cholecystitis. Consider chorionic cholecystitis given negative Chaidez sign Patient admitted to medicine service 01/06. Patient seen and examined. MRCP done showed distended gallbladder with surrounding edema and wall thickening, large gallstone within the gallbladder neck. Findings suspicious of acute cholecystitis. Denies any further episodes of abdominal pain. Denies any chest pain. 01/07. Patient seen and examined in no acute issues overnight. No episodes of abdominal pain. Possible surgery tomorrow 01/08. Patient seen and examined. NPO going for surgery today January 09: I assumed care of patient today. Patient status post cholecystectomy. Having some right upper quadrant pain. Has a BERNADINE drain in place. Up in a chair. No nausea vomiting. Started on clear liquids. January 10: Patient has pain at the right upper quadrant when she moves. BERNADINE drain in place-about 50 mL in 12 hours serosanguineous. Diet advanced by surgery. Active Medications Acetaminophen (Acetaminophen Tab 325 Mg Tab) 650 mg PO Q4HR PRN PRN Reason: Fever and/ or Pain Last Admin: 01/09/23 07:50 Dose: 650 mg Hydrocodone Bitart/Acetaminophen (Hydrocodone/Apap 5-325mg 1 Each Tab) 1 each PO Q4HR PRN PRN Reason: Pain Last Admin: 01/10/23 08:51 Dose: 1 each Atorvastatin Calcium (Atorvastatin 40 Mg Tab) 40 mg PO HS [facility] Last Admin: 01/09/23 19:44 Dose: 40 mg Cyanocobalamin (Cyanocobalamin 500 Mcg Tab) 500 mcg PO DAILY [facility] Last Admin: 01/10/23 08:35 Dose: 500 mcg Heparin Sodium (Porcine) (Heparin Sodium,Porcine 5,000 Unit/Ml 1 Ml Vial) 5,000 unit SQ Q8HR [facility] Last Admin: 01/10/23 15:46 Dose: 5,000 unit Piperacillin Sod/Tazobactam (Sod 3.375 gm/ Sodium Chloride) 100 mls @ 25 mls/hr IVPB Q8HR [facility]; Protocol Last Admin: 01/10/23 15:45 Dose: 25 mls/hr Losartan Potassium (Losartan 25 Mg Tab) 25 mg PO BID [facility] Last Admin: 01/10/23 08:35 Dose: 25 mg Morphine Sulfate (Morphine Sulfate 4 Mg/Ml Syringe) 4 mg IVP Q6HR PRN PRN Reason: Pain Naloxone HCl (Naloxone 0.4 Mg/Ml 1 Ml Vial) 0.2 mg IV Q2M PRN PRN Reason: Opioid Reversal Ondansetron HCl (Ondansetron 4 Mg/2 Ml Vial) 4 mg IVP Q8HR PRN PRN Reason: Nausea And Vomiting Tramadol HCl (Tramadol 50 Mg Tab) 50 mg PO Q6HR PRN PRN Reason: Breakthrough Pain On examination: VITAL SIGNS: 98.2, 77, 18, 1:30/88, GENERAL APPEARANCE: BMI 41.6, sitting up in a recliner comfortable HEENT: Normal external appearance of nose and ear. Oral cavity normal EYES: Pupils equal. Conjunctiva normal. NECK: JVD not raised. Mass not palpable. RESPIRATORY: Respiratory effort normal. Lungs clear to auscultation. CARDIOVASCULAR: First and second sounds normal. No edema. ABDOMEN: Soft. Liver and spleen not palpable. No tenderness. No mass palpable. Right upper quadrant tenderness. No guarding rigidity. BERNADINE drain with serosanguineous drainage. PSYCHIATRY: Alert and oriented x3. Mood and affect normal. INVESTIGATIONS, reviewed in the clinical context: January 09: White count 15 hemoglobin 14.2 platelets 390 sodium 133 potassium 4.9 creatinine 0.79 2-D echocardiogram: EF 50-55% Ultrasound abdomen: Gallstones with thickened yu. Large stone. CBD dilated. 1.4 cm. Assessment and plan -Acute cholecystitis, with gallstone Cholecystectomy by Dr. Mccord on January 08. BERNADINE drain in place. IV Zosyn Advance to soft low fat diet -Paroxysmal atrial fibrillation, currently in sinus rhythm: Rate controlled Resume eliquis when okay with surgery -Troponin anemia secondary to hemodynamic mismatch. From cholecystitis. No ACS Seen by oncology. No further intervention -CAD with a prior history of [place] -Morbid obesity BMI 41.6 Weight loss measures -Essential hypertension Cozaar -Hyperlipidemia Lipitor PT OT. Diet advanced. Resume eliquis when okay with surgery.
[2023-01-10] MEDS: ATORVASTATIN 40 MG TAB PO SCH (19:57)
[2023-01-10 21:37] VITALS: TEMP 98
[2023-01-11 00:06] VITALS: RESP 16
[2023-01-11 08:42] LABS: Basophils % (A) 0 %; Eosinophils # (A) 0.3 k/uL (0-0.7); Eosinophils % (A) 3 %; HCT 44.2 % (34.0-46.0); HGB 13.9 gm/dL (11.4-16.0); Hypochromasia Slight; Lymphocytes # (A) 1.9 k/uL (1.0-4.8); Lymphocytes % (A) 22 %; MCH 29.7 pg (25.0-35.0); MCHC 31.5 g/dL (31.0-37.0); MCV 94.1 fL (80.0-100.0); Mean Platelet Volume 7.4; Monocytes # (A) 0.5 k/uL (0-1.0); Monocytes % (A) 6 %; Neutrophils # (A) 6.1 k/uL (1.3-7.7); Neutrophils % (A) 68 %; Platelet Count 389 k/uL (150-450); RDW 14.3 % (11.5-15.5)
[2023-01-11] MEDS: LOSARTAN 25 MG TAB PO SCH (09:02)
[2023-01-11] MEDS: HEPARIN SODIUM,PORCINE 5,000 UNIT/ML 1 ML VIAL SQ SCH (09:02)
[2023-01-11] MEDS: PIPERACILLIN-TAZOBACTAM 3.375 GM in SODIUM CHLORIDE 0.9% 100 ML IVPB SCH (09:02)
[2023-01-11] MEDS: CYANOCOBALAMIN 500 MCG TAB PO SCH (09:02)
[2023-01-11 09:23] LABS: ALT 29 U/L (4-34); AST 36 U/L (14-36); African American GFR (CKD) 72 (>60 ml/min/1.73 sqM); Albumin 3.1 g/dL (3.5-5.0); Alkaline Phosphatase 105 U/L (38-126); Anion Gap 9 mmol/L; Blood Urea Nitrogen 10 mg/dL (7-17); Calcium 9.1 mg/dL (8.4-10.2); Carbon Dioxide 27 mmol/L (22-30); Chloride 100 mmol/L (98-107); Glucose 79 mg/dL (74-99); Non-African American GFR(CKD) 62 (>60 ml/min/1.73 sqM); Potassium 4.2 mmol/L (3.5-5.1); Sodium 136 mmol/L (137-145); Total Bilirubin 0.4 mg/dL (0.2-1.3); Total Protein 6.1 g/dL (6.3-8.2)
[2023-01-11 12:59] VITALS: BP 159/89; PULSE 109
--- NOTE | 2023-01-11 13:14 | P.PN ---
Subjective Progress Note Date: 01/11/23 CHIEF COMPLAINT: Acute cholecystitis HISTORY OF PRESENT ILLNESS: Patient is postop day #3 status post laparoscopic cholecystectomy. Patient reports that she is able to move easier today and has less pain. She is having flatus. Denies any nausea or vomiting. She is tolerating diet. Afebrile. WBC normalized from 15-9.0. Hgb 13.9 liver enzymes normalized. BERNADINE drain with 60 mL output through the day yesterday. Patient worked with physical therapy. Recommending home with home care. PHYSICAL EXAM: VITAL SIGNS: Reviewed. GENERAL: Well-developed in no acute distress. ABDOMEN: Soft. Nondistended. Incisions clean and dry. BERNADINE drain serosanguineous output NEUROLOGIC: Alert and oriented. Cranial nerves II through XII grossly intact. ASSESSMENT: 1. Acute cholecystitis status post laparoscopic cholecystectomy PLAN: -Patient can be discharged from surgical standpoint -Keep BERNADINE drain at discharge -Abdominal binder ordered for support -Continue low-fat diet -Continue pain management -Okay to resume anticoagulation today Physician Development Associate note has been reviewed by physician. Signing provider agrees with the documented findings, assessment, and plan of care. Objective - Vital Signs Vital signs: Vital Signs Temp 98 F 01/10/23 20:00 Pulse 92 01/11/23 08:00 Resp 16 01/11/23 08:00 BP 130/78 01/11/23 08:00 Pulse Ox 96 01/11/23 09:20 FiO2 Intake & Output 01/10/23 01/11/23 01/11/23 18:59 06:59 18:59 Output Total 40 20 Balance -40 -20 Output: Drainage 40 20 Right Anterior Abdomen 40 20 Other: Voiding Method Toilet # Voids 1 1 - Labs CBC & Chem 7: 01/11/23 08:12 01/11/23 08:12 Labs: Abnormal Lab Results - Last 24 Hours (Table) 01/11/23 Range/Units 08:12 Sodium 136 L (137-145) mmol/L Total Protein 6.1 L (6.3-8.2) g/dL Albumin 3.1 L (3.5-5.0) g/dL
--- NOTE | 2023-01-11 19:38 | P.DS ---
Providers Date of admission: 01/04/23 20:15 Expected date of discharge: 01/11/23 Attending physician: Marco Pfeiffer Consults: 01/04/23 20:15 Consult Physician Urgent Consulting Provider: Saulo Mccord Consult Reason/Comments: Acute cholecystitis Do you want consulting provider notified?: Yes Primary care physician: [facility] Course: patient is 67-year-old lady with past medical history significant for coronary artery disease, atrial fibrillation, hyperlipidemia and the ER because of right upper quadrant pain. Patient has been having this pain for the last 3 days. Pain is intermittent, sharp in character, nonradiating, no aggravating or relieving factors associated with this pain. Patient was complaining of nausea but no vomiting. Patient also noticed that his stools were yellow in color and looser in consistency. Denied any fever or chills. Denies any chest pain. Denied shortness of breath. Because of abdominal pain, patient went to her PCP who ordered some blood work. Because of persistent abdominal pain and the delay in getting those tests done, patient came to the ER Initial lab work done in the ER showed WBC 17.8, hemoglobin 16.4, platelet count 352, sodium 127, potassium 4.4, BUN 18, creatinine 0.96 total bilirubin 1.4, AST 63, ALT 31, 0.079 EKG done in the ER showed heart rate of 75, no ST segment elevation or T-wave inversion seen and a liquids Abdominal ultrasound done showed cholelithiasis with thickened yu correlate for cholecystitis. Consider chorionic cholecystitis given negative Chaidez sign Patient admitted to medicine service 01/06. Patient seen and examined. MRCP done showed distended gallbladder with surrounding edema and wall thickening, large gallstone within the gallbladder neck. Findings suspicious of acute cholecystitis. Denies any further episodes of abdominal pain. Denies any chest pain. 01/07. Patient seen and examined in no acute issues overnight. No episodes of abdominal pain. Possible surgery tomorrow 01/08. Patient seen and examined. NPO going for surgery today January 09: I assumed care of patient today. Patient status post cholecystectomy. Having some right upper quadrant pain. Has a BERNADINE drain in place. Up in a chair. No nausea vomiting. Started on clear liquids. January 10: Patient has pain at the right upper quadrant when she moves. BERNADINE drain in place-about 50 mL in 12 hours serosanguineous. Diet advanced by surgery. January 11: Feeling well. Per surgery patient cleared for discharge. No antibiotics. Patient feeling well On examination: VITAL SIGNS: Afebrile, 109, 16, 1 5989, 97% room air GENERAL APPEARANCE: BMI 41.6, sitting up in a recliner comfortable HEENT: Normal external appearance of nose and ear. Oral cavity normal EYES: Pupils equal. Conjunctiva normal. NECK: JVD not raised. Mass not palpable. RESPIRATORY: Respiratory effort normal. Lungs clear to auscultation. CARDIOVASCULAR: First and second sounds normal. No edema. ABDOMEN: Soft. Liver and spleen not palpable. No tenderness. No mass palpable. Right upper quadrant tenderness. No guarding rigidity. BERNADINE drain with serosanguineous drainage. PSYCHIATRY: Alert and oriented x3. Mood and affect normal. INVESTIGATIONS, reviewed in the clinical context: January 11: White count 19 hemoglobin 13.9 platelets 39 potassium 4.2 creatinine 0.94 January 09: White count 15 hemoglobin 14.2 platelets 390 sodium 133 potassium 4.9 creatinine 0.79 2-D echocardiogram: EF 50-55% Ultrasound abdomen: Gallstones with thickened yu. Large stone. CBD dilated. 1.4 cm. Assessment and plan -Acute cholecystitis, with gallstone Cholecystectomy by Dr. Mccrod on January 08. BERNADINE drain in place. IV Zosyn-discontinued soft low fat diet -Paroxysmal atrial fibrillation, currently in sinus rhythm: Rate controlled Resume eliquis when okay with surgery -Troponin anemia secondary to hemodynamic mismatch. From cholecystitis. No ACS Seen by oncology. No further intervention -CAD with a prior history of MA -Morbid obesity BMI 41.6 Weight loss measures -Essential hypertension Cozaar -Hyperlipidemia Lipitor Disposition: Home Labs: CBC BMP: 5 days Plan - Discharge Summary Discharge Rx Participant: Yes New Discharge Prescriptions: New HYDROcodone/APAP 5-325MG [[place] 5-325] 1 tab PO Q6HR PRN 3 Days #12 tab PRN Reason: Pain Acetaminophen Tab [Tylenol] 650 mg PO Q4HR PRN tab PRN Reason: Fever And/ Or Pain Continue Atorvastatin Calcium [Lipitor] 40 mg PO HS Apixaban [Eliquis] 5 mg PO BID Losartan [Cozaar] 25 mg PO BID Nitroglycerin Sl Tabs [Nitrostat] 0.4 mg SL Q5M PRN PRN Reason: Chest Pain Cyanocobalamin [Vitamin B-12] 500 mcg PO DAILY Discharge Medication List Apixaban [Eliquis] 5 mg PO BID 01/09/21 [History] Atorvastatin Calcium [Lipitor] 40 mg PO HS 01/09/21 [History] Cyanocobalamin [Vitamin B-12] 500 mcg PO DAILY 01/04/23 [History] Losartan [Cozaar] 25 mg PO BID 01/04/23 [History] Nitroglycerin Sl Tabs [Nitrostat] 0.4 mg SL Q5M PRN 01/04/23 [History] Acetaminophen Tab [Tylenol] 650 mg PO Q4HR PRN tab 01/11/23 [Rx] HYDROcodone/APAP 5-325MG [[place] 5-325] 1 tab PO Q6HR PRN 3 Days #12 tab 01/11/23 [Rx] Follow up Appointment(s)/Referral(s): Saulo Mccord MD [Medical Doctor] - 1 Week [facility], [NON-STAFF] - Porfirio Saenz MD [Primary Care Provider] - 1-2 days Patient Instructions/Handouts: Colectomy Diet (DC), Laparoscopic Cholecystectomy (DC) Activity/Diet/Wound Care/Special Instructions: No driving while taking [place]dale No lifting over 10 pounds You may shower. No soaking or tub baths for 2 weeks Very light activity until you are reevaluated at your follow up appointment with your surgeon Keep a log of BERNADINE drain output and bring with you to your follow-up appointment Milk/strip drains 2-3 times a day Soft bland diet Discharge Disposition: HOME WITH HOME HEALTH SERVICES
== END 2023-01-11 16:04 | disposition home health service (06) | DRG 418 ==
LOC: EC 15:48 → 3SCARD 20:15
PROVIDERS: ADMIT Hospitalist; ATTEND Hospitalist
PROC: 0FT44ZZ Resection of Gallbladder, Percutaneous Endoscopic Approach (ICD-10-PCS; principal; 2023-01-08 10:00)
DX: K80.00 Calculus of gallbladder with acute cholecystitis without obstruction (principal); Q21.12 Patent foramen ovale; Z68.41 Body mass index [BMI] 40.0-44.9, adult; R77.8 Other specified abnormalities of plasma proteins; I25.10 Atherosclerotic heart disease of native coronary artery without angina pectoris; I25.2 Old myocardial infarction; E66.01 Morbid (severe) obesity due to excess calories; I10 Essential (primary) hypertension; E78.5 Hyperlipidemia, unspecified; I48.0 Paroxysmal atrial fibrillation; Z79.01 Long term (current) use of anticoagulants; I35.1 Nonrheumatic aortic (valve) insufficiency; Z28.310 Unvaccinated for COVID-19; K21.9 Gastro-esophageal reflux disease without esophagitis; Z86.73 Personal history of transient ischemic attack (TIA), and cerebral infarction without residual deficits; Z82.3 Family history of stroke; Z96.651 Presence of right artificial knee joint; Z95.5 Presence of coronary angioplasty implant and graft; Z82.49 Family history of ischemic heart disease and other diseases of the circulatory system; I25.5 Ischemic cardiomyopathy; I44.7 Left bundle-branch block, unspecified; K82.8 Other specified diseases of gallbladder; Z79.899 Other long term (current) drug therapy
CPT/HCPCS: 36415; 74183; 76705; 80048; 80053; 81001; 83605; 83690; 84484; 85025; 85027; 85610; 85730; 87040; 88304; 88341; 88342; 93005; 93308; 94760; 96361; 96365; 96366; 96375; 99285

== ENCOUNTER → 2023-01-04 | Outpatient (CLI) | payer MEDICARE | END | disposition home or self-care (01) | LOC: RADUSWWP 14:40 | PROVIDERS: ATTEND Family Medicine | DX: Z53.9 Procedure and treatment not carried out, unspecified reason (principal) ==

== ENCOUNTER 2024-01-28 08:27 | Inpatient (IN) | payer MEDICARE ==
--- NOTE | 2024-01-28 08:40 | ED ---
Arrhythmia/Palpitations HPI - General Chief Complaint: Arrhythmia/Palpitations Stated Complaint: Hypertension Time Seen by Provider: 01/28/24 08:35 Source: patient, RN notes reviewed, old records reviewed, Caregiver Mode of arrival: ambulatory Limitations: no limitations - History of Present Illness Initial Comments: This is a 68-year-old female who presents today for evaluation of palpitations and elevated blood pressure. Patient was mainly concerned in watching her blood pressure for the last few weeks as it was high in the office on a recent doc tor's visit but this morning patient had significant palpitations lightheadedness and feels like her heart is racing in her chest. No chest pain, no change in medications no fevers or other complaints MD Complaint: rapid heart beat, "heart racing", palpitations, irregular heart beat, atrial fibrillation -: hour(s) Arrhythmia History: atrial fibrillation, SVT Associated Symptoms: near-syncope, anxiety Treatments Prior to Arrival: other (0) - Related Data Home Medications Medication Instructions Recorded Confirmed Apixaban [Eliquis] 5 mg PO BID 01/09/21 01/28/24 Atorvastatin Calcium [Lipitor] 40 mg PO HS 01/09/21 01/28/24 Cyanocobalamin [Vitamin B-12] 500 mcg PO DAILY 01/04/23 01/28/24 Losartan [Cozaar] 25 mg PO BID 01/04/23 01/28/24 Nitroglycerin Sl Tabs [Nitrostat] 0.4 mg SL Q5M PRN 01/04/23 01/28/24 Metoprolol Succinate (ER) [Toprol 25 mg PO DAILY 01/28/24 01/28/24 XL] Previous Rx's Medication Instructions Recorded Acetaminophen Tab [Tylenol] 650 mg PO Q4HR PRN tab 01/11/23 Allergies Allergy/AdvReac Type Severity Reaction Status Date / Time No Known Allergies Allergy Verified 01/28/24 12:39 Review of Systems ROS Statement: Those systems with pertinent positive or pertinent negative responses have been documented in the HPI. ROS Other: All systems not noted in ROS Statement are negative. Past Medical History Past Medical History: Atrial Fibrillation, CVA/TIA, GERD/Reflux, Hypertension, Myocardial Infarction ([place]), Skin Disorder Additional Past Medical History / Comment(s): digenerative disc disease,HR skips a beat occas,blisterlike areas scattered that itch. CVA 06/2020 Last Myocardial Infarction Date:: 01/09/21 History of Any Multi-Drug Resistant Organisms: None Reported Past Surgical History: Tonsillectomy, Tubal Ligation Additional Past Surgical History / Comment(s): ganglion cyst removed lt hand, Right total knee Past Anesthesia/Blood Transfusion Reactions: No Reported Reaction Additional Past Anesthesia/Blood Transfusion Reaction / Comment(s): no hx blood transfusion Date of Last Stent Placement:: 01/09/21 Past Psychological History: No Psychological Hx Reported Smoking Status: Former smoker Past Alcohol Use History: None Reported Past Drug Use History: None Reported - Past Family History Mother Family Medical History: CVA/TIA, Hyperlipidemia Father Family Medical History: No Reported History General Exam Limitations: no limitations General appearance: alert, in no apparent distress, anxious Head exam: Present: atraumatic, normocephalic, normal inspection Eye exam: Present: normal appearance, PERRL, EOMI. Absent: scleral icterus, conjunctival injection, periorbital swelling ENT exam: Present: normal exam, mucous membranes moist Neck exam: Present: normal inspection. Absent: tenderness, meningismus, lymphadenopathy Respiratory exam: Present: normal lung sounds bilaterally. Absent: respiratory distress, wheezes, rales, rhonchi, stridor Cardiovascular Exam: Present: tachycardia, irregular rhythm, normal heart sounds. Absent: systolic murmur, diastolic murmur, rubs, gallop, clicks GI/Abdominal exam: Present: soft, normal bowel sounds. Absent: distended, tend erness, guarding, rebound, rigid Extremities exam: Present: normal inspection, full ROM, normal capillary refill. Absent: tenderness, pedal edema, joint swelling, calf tenderness Back exam: Present: normal inspection Neurological exam: Present: alert, oriented X3, CN II-XII intact Psychiatric exam: Present: normal affect, normal mood Skin exam: Present: warm, dry, intact, normal color. Absent: rash Course Vital Signs 01/28/24 01/28/24 01/28/24 08:29 08:59 09:33 Temperature 97.9 F 98.0 F Pulse Rate 130 H 125 H 110 H Pulse Rate [ Pulse Oximetery ] Respiratory 18 14 14 Rate Blood Pressure 161/89 112/97 109/75 Blood Pressure [Left Arm] O2 Sat by Pulse 98 98 98 Oximetry 0901/28/24 01/28/24 10:19 13:10 16:33 Temperature Pulse Rate 114 H 93 104 H Pulse Rate [ Pulse Oximetery ] Respiratory 14 Rate Blood Pressure 105/75 124/87 126/70 Blood Pressure [Left Arm] O2 Sat by Pulse 97 98 99 Oximetry 01/28/24 01/28/24 01/28/24 17:36 18:41 20:00 Temperature 98.1 F Pulse Rate 109 H 95 Pulse Rate [ 44 L Pulse Oximetery ] Respiratory 14 18 Rate Blood Pressure 133/81 Blood Pressure [Left Arm] O2 Sat by Pulse 99 Oximetry 01/28/24 01/28/24 20:18 20:50 Temperature 97.7 F Pulse Rate 45 L Pulse Rate [ 44 L Pulse Oximetery ] Respiratory 18 18 Rate Blood Pressure 119/55 Blood Pressure 145/66 [Left Arm] O2 Sat by Pulse 96 99 Oximetry - Reevaluation(s) Reevaluation #1: Medical records reviewed Reevaluation #2: Patient symptoms unchanged Reevaluation #3: Patient informed of results questions answered Reevaluation #4: 02/06/24 20:13 Was pt. sent in by a medical professional or institution (, PA, [employer], urgent care, hospital, or jail...) When possible be specific @ -no Did you speak to anyone other than the patient for history (EMS, parent, family, police, friend...)? What history was obtained from this source @ -no Did you review nursing and triage notes (agree or disagree)? Why? @ -agree Are old charts reviewed (outside hosp., previous admission, EMS record, old EKG, old radiological studies, urgent care reports/EKG's, jail records)? Report findings @ -yes Differential Diagnosis (chest pain, altered mental status, abdominal pain women, abdominal pain men, vaginal bleeding, weakness, fever, dyspnea, syncope, headache, dizziness, GI bleed, back pain, seizure, CVA, palpatations, mental health, musculoskeletal)? @ -prior EKG interpreted by me (3pts min.). @ -yes X-rays interpreted by me (1pt min.). @ -yes negative for acute disease CT interpreted by me (1pt min.). @ -no U/S interpreted by me (1pt. min.). @ -no What testing was considered but not performed or refused? (CT, X-rays, U/S, labs)? Why? @ -none What meds were considered but not given or refused? Why? @ -none Did you discuss the management of the patient with other professionals (professionals i.e. , PA, [employer], lab, RT, psych nurse, social professionals, decorator mannequin, teacher, protective officer, dependency case manager)? Give summary @ -no Was smoking cessation discussed for >3mins.? @ -no Was critical care preformed (if so, how long)? @ -yes31 Were there social determinants of health that impacted care today? How? (Homelessness, low income, unemployed, alcoholism, drug addiction, transportation, low edu. Level, literacy, decrease access to med. care, longterm, rehab)? @ -none Was there de-escalation of care discussed even if they declined (Discuss DNR or withdrawal of care, Hospice)? DNR status @ -no What co-morbidities impacted this encounter? (DM, HTN, Smoking, COPD, CAD, Cancer, CVA, ARF, Chemo, Hep., AIDS, mental health diagnosis, sleep apnea, morbid obesity)? @ -none Was patient admitted / discharged? Hospital course, mention meds given and route, prescriptions, significant lab abnormalities, going to OR and other pertinent info. @ - 68 female to ER for elevated heart rate elevated blood pressure atrial fibrillation with RVR will admit for cardiology evaluation, symptoms are persistent here in the ER Admitted Undiagnosed new problem with uncertain prognosis? @ -no Drug Therapy requiring intensive monitoring for toxicity (Heparin, Nitro, Insulin, Cardizem)? @ -no Were any procedures done? @ -no Diagnosis/symptom? @ -Atrial fibrillation palpitations and arrhythmia Acute, or Chronic, or Acute on Chronic? @ -Acute Uncomplicated (without systemic symptoms) or Complicated (systemic symptoms)? @ -Complicated Side effects of treatment? @ -no Exacerbation, Progression, or Severe Exacerbation? @ -exacerbation Poses a threat to life or bodily function? How? (Chest pain, USA, VT, pneumonia, PE, COPD, DKA, ARF, appy, cholecystitis, CVA, Diverticulitis, Homicidal, Suicidal, threat to staff... and all critical care pts) @ -yes with arrhythmia Reevaluation #5: Differential Palpitations Ventricular arrhythmias, atrial arrhythmias, myocardial infarction, anemia, thyrotoxicosis, electrolyte imbalance, hypokalemia, pulmonary embolism, pulmonary disease, drugs, alcohol, anxiety, stress.... This is not meant to be an all-inclusive list. - Consultations Consultation #1: Spoke with admitting physicians who agreed admit this patient EKG Findings - EKG Comments: EKG Findings:: EKG is A-fib with RVR 136 QRS 110 QTc 351 - EKG Results: EKG: interpreted by [facility]NA Medical Decision Making - Medical Decision Making 68 female to ER for elevated heart rate elevated blood pressure atrial fibrillation with RVR will admit for cardiology evaluation, symptoms are p ersistent here in the ER - Lab Data Result diagrams: 01/30/24 06:17 01/30/24 06:17 Lab Results 01/28/24 01/28/24 01/28/24 Range/Units 08:56 08:56 08:56 WBC 8.3 (3.8-10.6) k/uL RBC 5.18 (3.80-5.40) m/uL Hgb 14.9 (11.4-16.0) gm/dL Hct 46.7 H (34.0-46.0) % MCV 90.0 (80.0-100.0) fL MCH 28.7 (25.0-35.0) pg MCHC 31.9 (31.0-37.0) g/dL RDW 15.0 (11.5-15.5) % Plt Count 254 (150-450) k/uL MPV 7.4 Neutrophils % 75 % Lymphocytes % 15 % Monocytes % 7 % Eosinophils % 1 % Basophils % 0 % Neutrophils # 6.3 (1.3-7.7) k/uL Lymphocytes # 1.3 (1.0-4.8) k/uL Monocytes # 0.6 (0-1.0) k/uL Eosinophils # 0.1 (0-0.7) k/uL Basophils # 0.0 (0-0.2) k/uL PT 10.4 (10.0-12.5) sec INR 0.9 (<1.2) APTT 25.5 (22.0-30.0) sec Sodium 138 (137-145) mmol/L Potassium 4.6 (3.5-5.1) mmol/L Chloride 111 H (98-107) mmol/L Carbon Dioxide 21 L (22-30) mmol/L Anion Gap 6 mmol/L BUN 18 H (7-17) mg/dL Creatinine 0.99 (0.52-1.04) mg/dL Est GFR (CKD-EPI)AfAm 67 (>60 ml/min/1.73 sqM) Est GFR (CKD-EPI)NonAf 58 (>60 ml/min/1.73 sqM) Glucose 99 (74-99) mg/dL Plasma Lactic Acid Christopher (0.7-2.0) mmol/L Calcium 9.9 (8.4-10.2) mg/dL Phosphorus 3.7 (2.5-4.5) mg/dL Magnesium 1.9 (1.6-2.3) mg/dL Total Bilirubin 0.9 (0.2-1.3) mg/dL AST 31 (14-36) U/L ALT 16 (4-34) U/L Alkaline Phosphatase 97 (38-126) U/L Troponin I (0.000-0.034) ng/mL NT-Pro-B Natriuret Pep 678 pg/mL Total Protein 6.8 (6.3-8.2) g/dL Albumin 4.0 (3.5-5.0) g/dL TSH 2.650 (0.465-4.680) mIU/L 01/28/24 01/28/24 Range/Units 08:56 08:56 WBC (3.8-10.6) k/uL RBC (3.80-5.40) m/uL Hgb (11.4-16.0) gm/dL Hct (34.0-46.0) % MCV (80.0-100.0) fL MCH (25.0-35.0) pg MCHC (31.0-37.0) g/dL RDW (11.5-15.5) % Plt Count (150-450) k/uL MPV Neutrophils % % Lymphocytes % % Monocytes % % Eosinophils % % Basophils % % Neutrophils # (1.3-7.7) k/uL Lymphocytes # (1.0-4.8) k/uL Monocytes # (0-1.0) k/uL Eosinophils # (0-0.7) k/uL Basophils # (0-0.2) k/uL PT (10.0-12.5) sec INR (<1.2) APTT (22.0-30.0) sec Sodium (137-145) mmol/L Potassium (3.5-5.1) mmol/L Chloride (98-107) mmol/L Carbon Dioxide (22-30) mmol/L Anion Gap mmol/L BUN (7-17) mg/dL Creatinine (0.52-1.04) mg/dL Est GFR (CKD-EPI)AfAm (>60 ml/min/1.73 sqM) Est GFR (CKD-EPI)NonAf (>60 ml/min/1.73 sqM) Glucose (74-99) mg/dL Plasma Lactic Acid Christopher 1.2 (0.7-2.0) mmol/L Calcium (8.4-10.2) mg/dL Phosphorus (2.5-4.5) mg/dL Magnesium (1.6-2.3) mg/dL Total Bilirubin (0.2-1.3) mg/dL AST (14-36) U/L ALT (4-34) U/L Alkaline Phosphatase (38-126) U/L Troponin I 0.020 (0.000-0.034) ng/mL NT-Pro-B Natriuret Pep pg/mL Total Protein (6.3-8.2) g/dL Albumin (3.5-5.0) g/dL TSH (0.465-4.680) mIU/L Critical Care Time Critical Care Time: Yes Total Critical Care Time: 31 Disposition Clinical Impression: Atrial fibrillation, Tachycardia, Palpitations, Hypertension, Atrial fibrillation with rapid ventricular response Disposition: ADMITTED IP TO THIS HOSP Is patient prescribed a controlled substance at d/c from ED?: No Time of Disposition: 12:00
[2024-01-28 09:09] LABS: Basophils % (A) 0 %; Eosinophils # (A) 0.1 k/uL (0-0.7); Eosinophils % (A) 1 %; HCT 46.7 % (34.0-46.0); HGB 14.9 gm/dL (11.4-16.0); Lymphocytes # (A) 1.3 k/uL (1.0-4.8); Lymphocytes % (A) 15 %; MCH 28.7 pg (25.0-35.0); MCHC 31.9 g/dL (31.0-37.0); Mean Platelet Volume 7.4; Monocytes # (A) 0.6 k/uL (0-1.0); Monocytes % (A) 7 %; Neutrophils # (A) 6.3 k/uL (1.3-7.7); Neutrophils % (A) 75 %; Platelet Count 254 k/uL (150-450); RBC 5.18 m/uL (3.80-5.40); WBC 8.3 k/uL (3.8-10.6)
[2024-01-28] MEDS: SODIUM CHLORIDE 0.9% 1,000 ML IV STA (09:10)
[2024-01-28] MEDS: DILTIAZEM 125 MG in SODIUM CHLORIDE 0.9% 100 ML IV SCH (09:19)
[2024-01-28] MEDS: DILTIAZEM DRIP BOLUS FROM BAG 1 MG SOLN IV ONE ×2 (09:21→13:05)
[2024-01-28 09:26] LABS: INR 0.9 (<1.2); Partial Thromboplastin Time 25.5 sec (22.0-30.0); Prothrombin Time 10.4 sec (10.0-12.5)
[2024-01-28 10:45] LABS: ALT 16 U/L (4-34); AST 31 U/L (14-36); African American GFR (CKD) 67 (>60 ml/min/1.73 sqM); Alkaline Phosphatase 97 U/L (38-126); Anion Gap 6 mmol/L; Blood Urea Nitrogen 18 mg/dL (7-17); Calcium 9.9 mg/dL (8.4-10.2); Carbon Dioxide 21 mmol/L (22-30); Chloride 111 mmol/L (98-107); Glucose 99 mg/dL (74-99); Magnesium 1.9 mg/dL (1.6-2.3); Non-African American GFR(CKD) 58 (>60 ml/min/1.73 sqM); Phosphorus 3.7 mg/dL (2.5-4.5); Potassium 4.6 mmol/L (3.5-5.1); Sodium 138 mmol/L (137-145); Total Bilirubin 0.9 mg/dL (0.2-1.3); Total Protein 6.8 g/dL (6.3-8.2)
[2024-01-28 10:53] LABS: NT-Pro-B-Type Natriuretic Pept 678 pg/mL
[2024-01-28] MEDS ORDERED: NALOXONE 0.4 MG/ML 1 ML VIAL IV PRN (11:58)
[2024-01-28] MEDS ORDERED: ONDANSETRON 4 MG/2 ML VIAL IVP PRN (11:58)
[2024-01-28] MEDS: SODIUM CHLORIDE 0.9% 1,000 ML IV SCH (13:09)
[2024-01-28] MEDS ORDERED: HEPARIN SODIUM 1,000 UN/ML (10ML VL) IV PRN (14:22)
--- NOTE | 2024-01-28 14:29 | P.HPIM ---
History of Present Illness H&P Date: 01/28/24 History of present illness: This is a 68-year-old female with past medical history significant for atrial fibrillation on Eliquis, history of coronary artery disease status post stents in 2020, history of schema cardiomyopathy with EF of 45%, later on recovered to 50 to 55%, history of CVA with PFO, hypertension, hyperlipidemia who presented to ER with complaint of palpitation for 1 day and elevated blood pressure. Patient stated that she was concerned watching her blood pressure For the last few weeks, as it was high in the office following recent doctor's visit. Patient noted significant palpitations, lightheadedness and felt like her heart was racing in her chest, felt palpitations radiating up to bilateral neck, denied any chest pain, shortness of breath, productive cough, sore throat, fever or chills. In the ED patient was afebrile, was A-fib with RVR with heart rate in the 130s, respiratory rate 18, 98% on room air, blood pressure 161/89. Patient was started on Cardizem drip. CBC was unremarkable. INR 0.9. Sodium 138, potassium 4.6, BUN 18, creatinine 0.99, TSH 2.650. NT proBNP 678. Initial troponin -0.020. Troponin was elevated at 0.157. REVIEW OF SYSTEMS: CONSTITUTIONAL: No fever, no malaise, no fatigue. HEENT: No recent visual problems or hearing problems. Denied any sore throat. CARDIOVASCULAR: No chest pain, orthopnea, PND. Complains of palpitations. Comp lains of lightheadedness. PULMONARY: No shortness of breath, no cough, no hemoptysis. GASTROINTESTINAL: No diarrhea, no nausea, no vomiting, no abdominal pain. NEUROLOGICAL: No headaches, no weakness, no numbness. HEMATOLOGICAL: Denies any bleeding or petechiae. GENITOURINARY: Denies any burning micturition, frequency, or urgency. MUSCULOSKELETAL/RHEUMATOLOGICAL: Denies any joint pain, swelling, or any muscle pain. ENDOCRINE: Denies any polyuria or polydipsia. The rest of the 14-point review of systems is negative. PHYSICAL EXAMINATION: GENERAL: The patient is A&O x3, NAD HEENT: EOMI, Sclerae anicteric, Moist Mucous membranes Neck: Supple, Non tender, No JVD PULMONARY: Equal breath souds B/L, No wheezing, No crackles. CARDIOVASCULAR: S1, S2 present. No murmurs, rubs, or gallops. ABDOMEN: Soft, nontender, nondistended, normoactive bowel sounds. No guarding or rebound tenderness. MUSCULOSKELETAL: No edema, No cyanosis. No clubbing. Normal ROM. Intact peripheral pulses. EXTREMITIES: No cyanosis, clubbing, or pedal edema. NEUROLOGICAL: CN 2-12 grossly intact. No FND Assessment and plan: A-fib with RVR: NSTEMI: History of CAD status post stent in 2020 Hypertension Hyperlipidemia History of ischemic cardiomyopathy with EF 45% PFO History of CVA Presented with palpitations, lightheadedness Was in A-fib with RVR on presentation. Troponin trending up. Continue monitor with serial troponin EKG Telemetry. Aspirin, statin, losartan, resume Toprol-XL Cardizem drip Heparin drip Hold Eliquis Cardiology consult DVT prophylaxis Anticoagulated Monitor vital signs and labs Labs and medication were reviewed. Continue same treatment. Further recommendations as per clinical course of the patient Dictation was produced using [email or web address] dictation software. please excuse any g rammatical, word or spelling errors. Past Medical History Past Medical History: Atrial Fibrillation, CVA/TIA, GERD/Reflux, Hypertension, Myocardial Infarction ([place]), Skin Disorder Additional Past Medical History / Comment(s): digenerative disc disease,HR skips a beat occas,blisterlike areas scattered that itch. CVA 06/2020 Last Myocardial Infarction Date:: 01/09/21 History of Any Multi-Drug Resistant Organisms: None Reported Past Surgical History: Tonsillectomy, Tubal Ligation Additional Past Surgical History / Comment(s): ganglion cyst removed lt hand, Right total knee Past Anesthesia/Blood Transfusion Reactions: No Reported Reaction Additional Past Anesthesia/Blood Transfusion Reaction / Comment(s): no hx blood transfusion Date of Last Stent Placement:: 01/09/21 Past Psychological History: No Psychological Hx Reported Smoking Status: Former smoker Past Alcohol Use History: None Reported Past Drug Use History: None Reported - Past Family History Mother Family Medical History: CVA/TIA, Hyperlipidemia Father Family Medical History: No Reported History Medications and Allergies Home Medications Medication Instructions Recorded Confirmed Type Apixaban [Eliquis] 5 mg PO BID 01/09/21 01/28/24 History Atorvastatin Calcium [Lipitor] 40 mg PO HS 01/09/21 01/28/24 History Cyanocobalamin [Vitamin B-12] 500 mcg PO DAILY 01/04/23 01/28/24 History Losartan [Cozaar] 25 mg PO BID 01/04/23 01/28/24 History Nitroglycerin Sl Tabs [Nitrostat] 0.4 mg SL Q5M PRN 01/04/23 01/28/24 History Acetaminophen Tab [Tylenol] 650 mg PO Q4HR PRN tab 01/11/23 01/28/24 Rx Metoprolol Succinate (ER) [Toprol 25 mg PO DAILY 01/28/24 01/28/24 History Xl] Allergies Allergy/AdvReac Type Severity Reaction Status Date / Time No Known Allergies Allergy Verified 01/28/24 12:39 Physical Exam Vitals: Vital Signs Temp Pulse Resp BP Pulse Ox 01/28/24 13:10 93 124/87 98 01/28/24 10:19 114 H 14 105/75 97 01/28/24 09:33 110 H 14 109/75 98 01/28/24 08:59 98.0 F 125 H 14 112/97 98 01/28/24 08:29 97.9 F 130 H 18 161/89 98 Intake and Output 01/27/24 01/28/24 01/28/24 22:59 06:59 14:59 Other: Weight 113.398 kg Results CBC & Chem 7: 01/28/24 08:56 01/28/24 08:56 Labs: Abnormal Lab Results - Last 24 Hours (Table) 01/28/24 01/28/24 01/28/24 Range/Units 08:56 08:56 12:52 Hct 46.7 H (34.0-46.0) % Chloride 111 H (98-107) mmol/L Carbon Dioxide 21 L (22-30) mmol/L BUN 18 H (7-17) mg/dL Troponin I 0.157 H* (0.000-0.034) ng/mL
[2024-01-28] MEDS: CYANOCOBALAMIN 500 MCG TAB PO SCH (14:54)
[2024-01-28] MEDS: ASPIRIN 81 MG PO SCH (14:54)
[2024-01-28] MEDS: METOPROLOL SUCCINATE (ER) 25 MG TAB.ER.24H PO SCH (14:54)
[2024-01-28] MEDS: HEPARIN SODIUM 1,000 UN/ML (10ML VL) IV ONE (14:55)
[2024-01-28] MEDS: HEPARIN SOD,PORK IN 0.45% NACL 25,000 UNIT in 0.45% NACL 1 250ML.BAG IV SCH (14:59)
[2024-01-28 15:13] LABS: Partial Thromboplastin Time 26.6 sec (22.0-30.0); Prothrombin Time 10.8 sec (10.0-12.5)
[2024-01-28] MEDS: APIXABAN 5 MG TAB PO STA (15:38)
[2024-01-28] MEDS ORDERED: APIXABAN 5 MG TAB PO SCH (21:00)
[2024-01-28] MEDS: ATORVASTATIN 40 MG TAB PO SCH (21:18)
[2024-01-29 07:24] LABS: Basophils % (A) 1 %; Eosinophils # (A) 0.1 k/uL (0-0.7); Eosinophils % (A) 1 %; HCT 42.4 % (34.0-46.0); HGB 13.6 gm/dL (11.4-16.0); Lymphocytes # (A) 1.4 k/uL (1.0-4.8); Lymphocytes % (A) 22 %; MCH 29.1 pg (25.0-35.0); MCHC 32.2 g/dL (31.0-37.0); MCV 90.6 fL (80.0-100.0); Mean Platelet Volume 7.5; Monocytes # (A) 0.5 k/uL (0-1.0); Monocytes % (A) 8 %; Neutrophils # (A) 4.1 k/uL (1.3-7.7); Neutrophils % (A) 67 %; Platelet Count 208 k/uL (150-450); RBC 4.68 m/uL (3.80-5.40); RDW 15.2 % (11.5-15.5); WBC 6.2 k/uL (3.8-10.6)
[2024-01-29 07:32] LABS: Partial Thromboplastin Time 56.5 sec (22.0-30.0); Prothrombin Time 10.9 sec (10.0-12.5)
[2024-01-29 08:06] LABS: ALT 14 U/L (4-34); AST 25 U/L (14-36); African American GFR (CKD) 76 (>60 ml/min/1.73 sqM); Albumin 3.1 g/dL (3.5-5.0); Alkaline Phosphatase 71 U/L (38-126); Anion Gap 7 mmol/L; Blood Urea Nitrogen 14 mg/dL (7-17); Calcium 9.1 mg/dL (8.4-10.2); Carbon Dioxide 22 mmol/L (22-30); Chloride 109 mmol/L (98-107); Glucose 92 mg/dL (74-99); Magnesium 1.8 mg/dL (1.6-2.3); Non-African American GFR(CKD) 66 (>60 ml/min/1.73 sqM); Phosphorus 3.9 mg/dL (2.5-4.5); Sodium 138 mmol/L (137-145); Total Bilirubin 0.9 mg/dL (0.2-1.3); Total Protein 5.6 g/dL (6.3-8.2)
[2024-01-29 08:17] LABS: Potassium 3.9 mmol/L (3.5-5.1)
[2024-01-29] MEDS: LOSARTAN 25 MG TAB PO SCH (08:17)
[2024-01-29] MEDS ORDERED: ALPRAZolam 0.25 MG TAB PO PRN (09:06)
[2024-01-29] MEDS ORDERED: NITROGLYCERIN SL TABS 0.4 MG TAB SUBLINGUAL PRN (09:06)
[2024-01-29] MEDS ORDERED: ALPRAZolam 0.5 MG TAB PO PRN (09:06)
--- NOTE | 2024-01-29 10:06 | P.CRDCN ---
History of Present Illness Consult date: 01/29/24 Reason for Consult (text): known History of present illness: This is a 68-year-old female patient of Dr. Martinez with past medical history of hypertension, PFO, obesity, paroxysmal atrial fibrillation, prior stroke, coronary artery disease status post inferior ST PATRICIA, history of arthritis status post knee surgery. We have been asked to evaluate the patient for A-fib with RVR. Patient presented to the hospital found to be in A-fib with RVR in the 140s. She was started on Cardizem drip which has been discontinued. Patient converted from atrial fibrillation to sinus rhythm and has been bradycardic since. Beta-josseline was held this morning. Patient gives history that around 4 AM she started feeling her heart racing and she called her son and came into the hospital. She denies having any chest pain, no shortness of breath, no li ghtheadedness or dizziness, no lower extremity edema. She states she is normally quite active including mowing her own lawn with a push mower. She denies having any cough. No wheezing. No blood in her stools or urine. No nausea or vomiting. She does have history of stroke x 2. Blood pressure 118/58, heart rate running in the 44-50 range, pulse ox 97% on room air. Patient has been started on heparin drip and Eliquis is on hold. Discussed option of cardiac catheterization and patient is agreeable to move forward with this tomorrow. EKG: #1 atrial fibrillation at 140 bpm with IVCD, #2 atrial fibrillation 126 bpm IVCD, #3 sinus rhythm with IVCD Laboratory studies: CBC within normal range. Sodium 138, potassium 3.9, BUN 14 creatinine 0.89. Troponin 0.02, 0.157 and 0.23. TSH 2.65. proBNP 678. Home cardiac medications: Eliquis 5 mg twice daily, atorvastatin 40 mg at bedtime, losartan 25 mg twice daily, metoprolol tartrate succinate 25 mg daily, Nitrostat as needed. Echocardiogram performed 01/05/2023 reveals EF of 50 to 55%, limited study. Cardiac catheterization performed 01/09/2021 revealed left main normal. Left circumflex normal as well as OM branch. LAD normal and becomes torturous. Right coronary artery with critical lesion distally. Patient subsequently underwent successful stenting of the distal right coronary artery. Low-level treadmill exercise stress test performed 03/23/2021 revealed poor exercise tolerance. No symptoms of angina. Just arrhythmias in the form of occasional PVCs. Nondiagnostic electrocardiographic stress test secondary to baseline EKG abnormalities. Review Of Systems: At the time of my exam: CONSTITUTIONAL: Denies fever or chills. HEENT: Denies blurred vision, vision changes, or eye pain. Denies hemoptysis CARDIOVASCULAR: Denies chest pain. Denies orthopnea. Denies PND. Denies palpitations RESPIRATORY: Denies shortness of breath. GASTROINTESTINAL: Denies abdominal pain. Denies nausea or vomiting. HEMATOLOGIC: Denies bleeding disorders. GENITOURINARY: Denies any blood in urine. SKIN: Denies puritis. Denies rash. Physical examination: Gen: This is a 68-year-old female resting in bed appears to be comfortable and in no acute distress. VS: reviewed HEENT: Head is atraumatic, normocephalic. Pupils equal, round. Sclerae is anicteric. NECK: Supple. No JVD. LUNGS: Clear to auscultation. No wheezes or rhonchi. No intercostal retractions. HEART: Regular rate and rhythm. No murmur. ABDOMEN: Soft No tenderness. EXTREMITIES: No pedal edema. No calf tenderness. NEUROLOGICAL: Patient is awake, alert and oriented x3. Assessment: Non-ST elevated myocardial infarction Paroxysmal atrial fibrillation presenting with RVR, now in sinus rhythm Coronary artery disease status post NSTEMI with PCI to the distal RCA 01/09/2021 Ischemic cardiomyopathy with initial EF of 35 to 40%, improved Hypertension Hyperlipidemia PFO Stroke without residual defects likely related to A-fib Morbid obesity with BMI of 43 Plan: Resume patient's home cardiac medications Continue heparin drip Patient will be scheduled for cardiac catheterization tomorrow with Dr. Martinez Continue to hold Eliquis Obtain 2-D echocardiogram and Doppler study to assess cardiac structure and function Further recommendations to follow based upon clinical course Thank you kindly for this consultation. Nurse practitioner note has been reviewed, I agree with documented findings and plan of care. Patient was seen and examined. Past Medical History Past Medical History: Atrial Fibrillation, CVA/TIA, GERD/Reflux, Hypertension, Myocardial Infarction ([place]), Skin Disorder Additional Past Medical History / Comment(s): digenerative disc disease,HR skips a beat occas,blisterlike areas scattered that itch. CVA 06/2020 Last Myocardial Infarction Date:: 01/09/21 History of Any Multi-Drug Resistant Organisms: None Reported Past Surgical History: Tonsillectomy, Tubal Ligation Additional Past Surgical History / Comment(s): ganglion cyst removed lt hand, Right total knee Past Anesthesia/Blood Transfusion Reactions: No Reported Reaction Additional Past Anesthesia/Blood Transfusion Reaction / Comment(s): no hx blood transfusion Date of Last Stent Placement:: 01/09/21 Past Psychological History: No Psychological Hx Reported Smoking Status: Former smoker Past Alcohol Use History: None Reported Past Drug Use History: None Reported - Past Family History Mother Family Medical History: CVA/TIA, Hyperlipidemia Father Family Medical History: No Reported History Medications and Allergies Home Medications Medication Instructions Recorded Confirmed Type Apixaban [Eliquis] 5 mg PO BID 01/09/21 01/28/24 History Atorvastatin Calcium [Lipitor] 40 mg PO HS 01/09/21 01/28/24 History Cyanocobalamin [Vitamin B-12] 500 mcg PO DAILY 01/04/23 01/28/24 History Losartan [Cozaar] 25 mg PO BID 01/04/23 01/28/24 History Nitroglycerin Sl Tabs [Nitrostat] 0.4 mg SL Q5M PRN 01/04/23 01/28/24 History Acetaminophen Tab [Tylenol] 650 mg PO Q4HR PRN tab 01/11/23 01/28/24 Rx Metoprolol Succinate (ER) [Toprol 25 mg PO DAILY 01/28/24 01/28/24 History Xl] Allergies Allergy/AdvReac Type Severity Reaction Status Date / Time No Known Allergies Allergy Verified 01/28/24 12:39 Physical Exam Vitals: Vital Signs Temp Pulse Pulse Resp BP BP Pulse Ox 01/29/24 03:14 98.1 F 50 L 18 118/58 97 01/29/24 01:25 48 L 18 01/28/24 23:54 97.7 F 48 L 18 129/61 98 01/28/24 20:50 97.7 F 44 L 18 145/66 99 01/28/24 20:18 45 L 18 119/55 96 01/28/24 20:00 44 L 18 01/28/24 18:41 95 01/28/24 17:36 98.1 F 109 H 14 133/81 99 01/28/24 16:33 104 H 126/70 99 01/28/24 13:10 93 124/87 98 01/28/24 10:19 114 H 14 105/75 97 01/28/24 09:33 110 H 14 109/75 98 Intake and Output 01/28/24 01/29/24 01/29/24 22:59 06:59 14:59 Intake Total 63.500 Output Total 0 0 Balance 63.500 0 Intake: Intake, IV Titration 63.500 Amount Diltiazem 125 mg In 63.500 Sodium Chloride 0.9% 100 ml @ 5 MG/HR 5 mls/hr IV .Q24H [facility] Rx#:[id number] Output: Urine 0 0 Other: Voiding Method Toilet Toilet Weight 113.398 kg 117.5 kg Results 01/29/24 06:48 01/29/24 06:48 Cardiac Enzymes 01/28/24 01/28/24 01/28/24 Range/Units 08:56 08:56 12:52 AST 31 (14-36) U/L Troponin I 0.020 0.157 H* (0.000-0.034) ng/mL 01/28/24 01/29/24 Range/Units 14:33 06:48 AST 25 (14-36) U/L Troponin I 0.230 H* (0.000-0.034) ng/mL Coagulation 01/28/24 01/28/24 01/28/24 Range/Units 08:56 14:33 22:05 PT 10.4 10.8 (10.0-12.5) sec APTT 25.5 26.6 52.6 H (22.0-30.0) sec 01/29/24 Range/Units 06:48 PT 10.9 (10.0-12.5) sec APTT 56.5 H (22.0-30.0) sec CBC 01/28/24 01/29/24 Range/Units 08:56 06:48 WBC 8.3 6.2 (3.8-10.6) k/uL RBC 5.18 4.68 (3.80-5.40) m/uL Hgb 14.9 13.6 (11.4-16.0) gm/dL Hct 46.7 H 42.4 (34.0-46.0) % Plt Count 254 208 (150-450) k/uL Comprehensive Metabolic Panel 01/28/24 01/29/24 Range/Units 08:56 06:48 Sodium 138 138 (137-145) mmol/L Potassium 4.6 3.9 (3.5-5.1) mmol/L Chloride 111 H 109 H (98-107) mmol/L Carbon Dioxide 21 L 22 (22-30) mmol/L BUN 18 H 14 (7-17) mg/dL Creatinine 0.99 0.89 (0.52-1.04) mg/dL Glucose 99 92 (74-99) mg/dL Calcium 9.9 9.1 (8.4-10.2) mg/dL AST 31 25 (14-36) U/L ALT 16 14 (4-34) U/L Alkaline Phosphatase 97 71 (38-126) U/L Total Protein 6.8 5.6 L (6.3-8.2) g/dL Albumin 4.0 3.1 L (3.5-5.0) g/dL Current Medications Generic Name Dose Route Start Last Admin Trade Name Freq PRN Reason Stop Dose Admin Aspirin 81 mg 01/28/24 14:30 01/29/24 08:17 Aspirin 81 Mg PO 81 mg DAILY CRISTOBAL Administration Atorvastatin Calcium 40 mg 01/28/24 21:00 01/28/24 21:18 Atorvastatin 40 Mg Tab PO 40 mg HS CRISTOBAL Administration Cyanocobalamin 500 mcg 01/28/24 13:45 01/29/24 08:17 Cyanocobalamin 500 Mcg Tab PO 500 mcg DAILY CRISTOBAL Administration Heparin Sodium (Porcine) 0 unit 01/28/24 14:22 Heparin Sodium 1,000 Un/Ml (10ml Vl) IV PER PROTOCOL PRN Low PTT Protocol Diltiazem HCl 125 mg/ Sodium 125 mls @ 5 mls/hr 01/28/24 09:00 01/28/24 18:57 Chloride IV 5 mg/hr .Q24H CRISTOBAL 5 mls/hr Infusion 5 MG/HR Sodium Chloride 1,000 mls @ 20 mls/hr 01/28/24 12:00 01/28/24 13:09 Saline 0.9% IV 20 mls/hr .Q24H CRISTOBAL Administration Heparin Sodium/Sodium Chloride 250 mls @ 10.002 mls/hr 01/28/24 14:30 01/28/24 14:59 25,000 unit/ Sodium Chloride IV 8.82 units/kg/hr .Q24H CRISTOBAL 10.002 mls/hr Administration Protocol 8.82 UNITS/KG/HR Losartan Potassium 25 mg 01/29/24 09:00 01/29/24 08:17 Losartan 25 Mg Tab PO 25 mg BID CRISTOBAL Administration Metoprolol Succinate 25 mg 01/28/24 13:45 01/28/24 14:54 Metoprolol Succinate (Er) 25 Mg Tab.Er.24h PO 25 mg DAILY CRISTOBAL Administration Naloxone HCl 0.2 mg 01/28/24 11:58 Naloxone 0.4 Mg/Ml 1 Ml Vial IV Q2M PRN Opioid Reversal Ondansetron HCl 4 mg 01/28/24 11:58 Ondansetron 4 Mg/2 Ml Vial IVP Q8HR PRN Nausea And Vomiting Intake and Output 01/28/24 01/29/24 01/29/24 22:59 06:59 14:59 Intake Total 63.500 Output Total 0 0 Balance 63.500 0 Intake: Intake, IV Titration 63.500 Amount Diltiazem 125 mg In 63.500 Sodium Chloride 0.9% 100 ml @ 5 MG/HR 5 mls/hr IV .Q24H [facility] Rx#:[id number] Output: Urine 0 0 Other: Voiding Method Toilet Toilet Weight 113.398 kg 117.5 kg 01/29/24 06:48 01/29/24 06:48
--- NOTE | 2024-01-29 14:46 | P.PN ---
Subjective Progress Note Date: 01/29/24 Interval History: This is a 68-year-old female with past medical history significant for atrial fibrillation on Eliquis, history of coronary artery disease status post stents in 2020, history of schema cardiomyopathy with EF of 45%, later on recovered to 50 to 55%, history of CVA with PFO, hypertension, hyperlipidemia who presented to ER with complaint of palpitation for 1 day and elevated blood pressure. Patient stated that she was concerned watching her blood pressure For the last few weeks, as it was high in the office following recent doctor's visit. Patient noted significant palpitations, lightheadedness and felt like her heart was racing in her chest, felt palpitations radiating up to bilateral neck, denied any chest pain, shortness of breath, productive cough, sore throat, fever or chills. In the ED patient was afebrile, was A-fib with RVR with heart rate in the 130s, respiratory rate 18, 98% on room air, blood pressure 161/89. Patient was started on Cardizem drip. CBC was unremarkable. INR 0.9. Sodium 138, potassium 4.6, BUN 18, creatinine 0.99, TSH 2.650. NT proBNP 678. Initial troponin -0.020. Troponin was elevated at 0.157. 01/29/24--patient was seen and examined today. Patient's troponin trended upwards yesterday, patient has been on heparin drip. Patient denied any chest pain. Heart rate is currently controlled. Patient is currently in normal sinus rhythm. Currently off Cardizem drip. Cardiology following, echocardiogram ordered, plan for cardiac catheterization tomorrow. CBC unremarkable. INR 1.0. BMP unremarkable. Assessment and plan: A-fib with RVR: NSTEMI: History of CAD status post stent in 2020 Hypertension Hyperlipidemia History of ischemic cardiomyopathy with EF 45% PFO History of CVA Presented with palpitations, lightheadedness Was in A-fib with RVR on presentation. Troponin trending up. Continue monitor with serial troponin EKG Telemetry. Aspirin, statin, losartan, resumed Toprol-XL Cardizem drip --now off Heparin drip Hold Eliquis Cardiology consulted--- plan for cardiac exacerbation tomorrow. DVT prophylaxis Anticoagulated Monitor vital signs and labs Labs and medication were reviewed. Continue same treatment. Further recommendations as per clinical course of the patient PHYSICAL EXAMINATION: GENERAL: The patient is A&O x3, NAD HEENT: EOMI, Sclerae anicteric, Moist Mucous membranes Neck: Supple, Non tender, No JVD PULMONARY: Equal breath souds B/L, No wheezing, No crackles. CARDIOVASCULAR: S1, S2 present. No murmurs, rubs, or gallops. ABDOMEN: Soft, nontender, nondistended, normoactive bowel sounds. No guarding or rebound tenderness. MUSCULOSKELETAL: No edema, No cyanosis. No clubbing. Normal ROM. Intact peripheral pulses. EXTREMITIES: No cyanosis, clubbing, or pedal edema. NEUROLOGICAL: CN 2-12 grossly intact. No FND Skin: No Rash REVIEW OF SYSTEMS: CONSTITUTIONAL: No fever or chills. CARDIOVASCULAR: No chest pain, palpitations or syncope. PULMONARY: No shortness of breath, no cough, sore throat. GASTROINTESTINAL: No nausea, vomiting, diarrhea, abdominal pain. : No Dysuria, urgency, frequency. Extremities: No edema. NEUROLOGICAL: No headaches, no weakness, or numbness Dictation was produced using disco volante dictation software. please excuse any grammatical, word or spelling errors. Objective - Vital Signs Vital signs: Vital Signs Temp 97.6 F 01/29/24 12:00 Pulse 48 L 01/29/24 12:00 Resp 18 01/29/24 12:00 BP 132/58 01/29/24 12:00 Pulse Ox 95 01/29/24 12:00 FiO2 Intake & Output 01/28/24 01/29/24 01/29/24 18:59 06:59 18:59 Intake Total 63.500 200 Output Total 0 Balance 63.500 0 200 Weight 113.398 kg 117.5 kg Intake: Intake, IV Titration 63.500 Amount Diltiazem 125 mg In 63.500 Sodium Chloride 0.9% 100 ml @ 5 MG/HR 5 mls/hr IV .Q24H [facility] Rx#:[id number] Oral 200 Output: Urine 0 Other: Voiding Method Toilet Toilet - Labs CBC & Chem 7: 01/29/24 06:48 01/29/24 06:48 Labs: Abnormal Lab Results - Last 24 Hours (Table) 01/28/24 01/28/24 01/29/24 Range/Units 14:33 22:05 06:48 APTT 52.6 H (22.0-30.0) sec Chloride 109 H (98-107) mmol/L Troponin I 0.230 H* (0.000-0.034) ng/mL Total Protein 5.6 L (6.3-8.2) g/dL Albumin 3.1 L (3.5-5.0) g/dL 01/29/24 Range/Units 06:48 APTT 56.5 H (22.0-30.0) sec Chloride (98-107) mmol/L Troponin I (0.000-0.034) ng/mL Total Protein (6.3-8.2) g/dL Albumin (3.5-5.0) g/dL
[2024-01-30] MEDS: ATORVASTATIN 80 MG TAB PO ONE (06:15)
[2024-01-30] MEDS: ASPIRIN 325 MG TAB PO ONE (06:15)
[2024-01-30] MEDS ORDERED: HEPARIN SODIUM,PORCINE (1 ML) 2,500 UNIT in SODIUM CHLORIDE 0.9% 250 ML IRRIGATION PRN (07:00)
[2024-01-30] MEDS ORDERED: HEPARIN SODIUM,PORCINE 10,000 UNIT in SODIUM CHLORIDE 0.9% 1,000 ML IRRIGATION PRN (07:00)
[2024-01-30 07:19] LABS: Basophils % (A) 1 %; Eosinophils # (A) 0.1 k/uL (0-0.7); Eosinophils % (A) 2 %; HCT 41.2 % (34.0-46.0); HGB 13.6 gm/dL (11.4-16.0); Lymphocytes # (A) 1.6 k/uL (1.0-4.8); Lymphocytes % (A) 22 %; MCH 29.4 pg (25.0-35.0); MCV 88.9 fL (80.0-100.0); Mean Platelet Volume 8.1; Monocytes # (A) 0.5 k/uL (0-1.0); Monocytes % (A) 7 %; Neutrophils # (A) 4.7 k/uL (1.3-7.7); Neutrophils % (A) 67 %; Platelet Count 211 k/uL (150-450); RBC 4.63 m/uL (3.80-5.40); RDW 15.5 % (11.5-15.5)
--- NOTE | 2024-01-30 07:22 | CA ---
Transthoracic Echo Report Name: Kim Ryan Age: 68 Gender: F : 1955 Exam Date: 01/29/2024 10:57 Exam Location: [facility] Ht (in): 65 Wt (lb): 259 Ordering Physician: Misti Washington Attending/Referring Phys: [id number], Felix Dyer [employer] Ro Martinez RDCS Procedure CPT: Indications: LVF Cardiac Hx: Technical Quality: Fair Contrast 1: Total Dose (mL): Contrast 2: Total Dose (mL): MEASUREMENTS (Male / Female) Normal Values 2D ECHO LV Diastolic Diameter PLAX 5.0 cm 4.2 - 5.9 / 3.9 - 5.3 cm LV Systolic Diameter PLAX 3.3 cm IVS Diastolic Thickness 1.3 cm 0.6 - 1.0 / 0.6 - 0.9 cm LVPW Diastolic Thickness 1.3 cm 0.6 - 1.0 / 0.6 - 0.9 cm LV Relative Wall Thickness 0.5 RV Internal Dim ED PLAX 3.4 cm LA Systolic Diameter LX 4.2 cm 3.0 - 4.0 / 2.7 - 3.8 cm LV Diastolic Volume MOD 4C 97.5 cm??? LV Systolic Volume MOD 4C 50.3 cm??? LV Ejection Fraction MOD 4C 48.4 % LV Cardiac Index MOD 4C 1107.9 cm???/min???m??? LV Diastolic Length 4C 8.2 cm LV Systolic Length 4C 7.0 cm LV Diastolic Volume MOD 2C 90.4 cm??? LV Systolic Volume MOD 2C 48.3 cm??? LV Ejection Fraction MOD 2C 46.5 % LV Cardiac Index MOD 2C 987.2 cm???/min???m??? LV Diastolic Length 2C 8.1 cm LV Systolic Length 2C 6.8 cm LA Volume 77.7 cm??? 18 - 58 / 22 - 52 cm??? LA Volume Index 32.6 cm???/m??? 16 - 28 cm???/m??? M-MODE Aortic Root Diameter MM 3.4 cm AV Cusp Separation MM 2.5 cm DOPPLER AV Peak Velocity 154.3 cm/s AV Peak Gradient 9.5 mmHg MV E' Velocity 5.3 cm/s FINDINGS Left Ventricle Left ventricular ejection fraction is estimated at 50-55 %. Left ventricular cavity size normal. Mild concentric left ventricular hypertrophy. No obvious regional wall motion abnormalities. Right Ventricle Mild right ventricular dilatation. Unable to estimate the right ventricular systolic pressure. Right Atrium Normal right atrial size. No right atrial thrombus or mass seen. Left Atrium Mildly increased left atrial diameter. Mildly increased left atrial volume. Mildly increased left atrial area. Mitral Valve Structurally normal mitral valve. No evidence for mitral valve prolapse. No mitral stenosis. Trace mitral regurgitation. Aortic Valve Trileaflet aortic valve. No aortic valve stenosis or regurgitation. Tricuspid Valve Structurally normal tricuspid valve. No tricuspid stenosis, regurgitation or prolapse. Pulmonic Valve Structurally normal pulmonic valve. No pulmonic regurgitation. Pericardium No pericardial or pleural effusion. Aorta Normal size aortic root and proximal ascending aorta. CONCLUSIONS Mild RV enlargement No pericardial effusion Previewed by: Dr. Ten Jauregui MD (Electronically Signed) Final Date: 30 January 2024 07:20
[2024-01-30] MEDS: SODIUM CHLORIDE 0.9% 1,000 ML IV ONE (07:25)
[2024-01-30] MEDS: fentaNYL (PF) 50 MCG/ML 2 ML AMP IVP ONE (07:31)
[2024-01-30] MEDS: MIDAZOLAM 2 MG/2 ML VIAL IVP ONE (07:31)
[2024-01-30] MEDS: LIDOCAINE 1% INJ 10MG/ML (20 ML MDV) SQ ONE (07:35)
[2024-01-30 07:36] LABS: African American GFR (CKD) 64 (>60 ml/min/1.73 sqM); Anion Gap 5 mmol/L; Blood Urea Nitrogen 17 mg/dL (7-17); Calcium 9.1 mg/dL (8.4-10.2); Carbon Dioxide 24 mmol/L (22-30); Chloride 108 mmol/L (98-107); Glucose 90 mg/dL (74-99); Magnesium 1.8 mg/dL (1.6-2.3); Non-African American GFR(CKD) 55 (>60 ml/min/1.73 sqM); Potassium 4.1 mmol/L (3.5-5.1); Sodium 137 mmol/L (137-145)
[2024-01-30] MEDS: VERAPAMIL SYRINGE (5 MG/10 ML) INTRAARTER ONE (07:36)
[2024-01-30] MEDS: HEPARIN SODIUM 1,000 UN/ML (10ML VL) IVP ONE (07:43)
[2024-01-30] MEDS: TICAGRELOR 90 MG TAB PO ONE (07:59)
[2024-01-30] MEDS: IOPAMIDOL-370 100ML BTL INJ ONE ×2 (08:05→08:10)
--- NOTE | 2024-01-30 08:33 | P.CARDCATH ---
Description of Procedure: PROCEDURES PERFORMED: Left heart catheterization, bilateral coronary angiography, ultrasound guided arterial access, attempted wiring of RCA to PLV INDICATION: Non-STEMI CONSENT:I have discussed the risks, benefits and alternative therapies for the above-mentioned procedure and for both sedation/analgesia as well as necessary blood product administration, if indicated, as they pertain to this patient. The patient has indicated understanding and acceptance of the risks and procedures discussed. PROCEDURE: After the risks, benefits and alternatives of the above mentioned procedure explained in detail with the patient, informed consent was obtained. Patient was taken to the catheterization lab and prepped and draped in usual fashion. Ultrasound guidance was used to assess for arterial access. 1% lidocaine was used to anesthetize the right radial artery. A 6-Scottish sheath was placed in the right radial artery using modified Seldinger technique and ultrasound guidance. Left coronary angiography was performed with a 5-Scottish JL 3.5 catheter and right coronary angiography was performed with a 5-Scottish FR5 catheter in various views. A 5-Scottish FR5 catheter was inserted into the left ventricle and pressure measurements were obtained. The PLV lesion appeared to be chronic with collateralization however possible m ore subacute process and therefore recommended attempted wiring. Heparin was given. A 6-Scottish AL 0.75 guide was easily engage the RCA. A 0.014 BMW wire was advanced to the distal PDA and then an additional 0.014 whisper wire was attempted to advance however was unable to advance past the 100% stenosis. Multiple attempts were made however unable to easily wire and lesion behaving more like a MAIL CARRIER. Therefore medical therapy was recommended. Final angiogram were performed. The right radial sheath was removed and a TR band was placed with hemostasis achieved. The patient tolerated the procedure well. Patient was transported back to the post catheterization holding area in stable condition. Conscious Sedation: Patient was monitored under the direct supervision of myself for conscious sedation using Versed and fentanyl for a total duration of 31 minutes HEMODYNAMICS: Ao: 134/81 LV: 139/4, LVEDP 14 SELECTIVE CORONARY ARTERIOGRAPHY: LEFT MAIN: The left main is a large caliber vessel which bifurcates into the LAD and circumflex. There is no significant stenosis. LEFT ANTERIOR DESCENDING CORONARY ARTERY: LAD is a large caliber vessel which wraps around to the apex. There is Proximal LAD 30% stenosis and otherwise normal. There are [id number] collaterals to the PLV. LEFT CIRCUMFLEX CORONARY ARTERY: Left circumflex is a moderate caliber vessel without significant stenosis. RIGHT CORONARY ARTERY: The right coronary artery is a large caliber vessel which gives off a PDA and PLV branch and is the dominant vessel. There is A patent mid to distal stent extending into the PLV branch. There is 20-30% in-stent stenosis. The distal edge of the stent Iin the PLV branch has a 100% stenosis with [id number] and right to right collaterals. FINAL IMPRESSION: 1. CAD as described above including proximal LAD 30% stenosis, 28-30% RCA in- stent stenosis, proximal PLV 100% stenosis with left to right and right to right collaterals 2. Normal left sided filling pressures 3. Difficult wiring of the PLV branch more consistent with a MAIL CARRIER PLAN: 1. Aggressive risk factor modification per most recent ACC/AHA guidelines. 2. Continue medical therapy of PLV which is small caliber and near the bifurcation. If recurrent typical angina, may consider MAIL CARRIER PCI however appears somewhat small caliber vessel.
[2024-01-30 09:02] VITALS: TEMP 97.6
--- NOTE | 2024-01-30 10:13 | P.PN ---
Subjective Progress Note Date: 01/30/24 History of present illness: This is a 68-year-old female patient of Dr. Martinez with past medical history of hypertension, PFO, obesity, paroxysmal atrial fibrillation, prior stroke, coronary artery disease status post inferior ST PATRICIA, history of arthritis status post knee surgery. We have been asked to evaluate the patient for A-fib with RVR. Patient presented to the hospital found to be in A-fib with RVR in the 140s. She was started on Cardizem drip which has been discontinued. Patient converted from atrial fibrillation to sinus rhythm and has been bradycardic since. Beta-josseline was held this morning. Patient gives history that around 4 AM she started feeling her heart racing and she called her son and came into the hospital. She denies having any chest pain, no shortness of breath, no lightheadedness or dizziness, no lower extremity edema. She states she is normally quite active including mowing her own lawn with a push mower. She denies having any cough. No wheezing. No blood in her stools or urine. No nausea or vomiting. She does have history of stroke x 2. Blood pressure 118/58, heart rate running in the 44-50 range, pulse ox 97% on room air. Patient has been started on heparin drip and Eliquis is on hold. Discussed option of cardiac catheterization and patient is agreeable to move forward with this tomorrow. EKG: #1 atrial fibrillation at 140 bpm with IVCD, #2 atrial fibrillation 126 bpm IVCD, #3 sinus rhythm with IVCD Laboratory studies: CBC within normal range. Sodium 138, potassium 3.9, BUN 14 creatinine 0.89. Troponin 0.02, 0.157 and 0.23. TSH 2.65. proBNP 678. Home cardiac medications: Eliquis 5 mg twice daily, atorvastatin 40 mg at bedtime, losartan 25 mg twice daily, metoprolol tartrate succinate 25 mg daily, Nitrostat as needed. Echocardiogram performed 01/05/2023 reveals EF of 50 to 55%, limited study. Cardiac catheterization performed 01/09/2021 revealed left main normal. Left circumflex normal as well as OM branch. LAD normal and becomes torturous. Right coronary artery with critical lesion distally. Patient subsequently underwent successful stenting of the distal right coronary artery. Low-level treadmill exercise stress test performed 03/23/2021 revealed poor exercise tolerance. No symptoms of angina. Just arrhythmias in the form of occasional PVCs. Nondiagnostic electrocardiographic stress test secondary to baseline EKG abnormalities. 01/29 Patient is seen today in follow-up. She has gone for cardiac catheterization this morning with Dr. Martinez which revealed CAD with proximal LAD 30% stenosis, 20 to 30% RCA in-stent stenosis, proximal PLV 100% stenosis with [id number] and right to right collaterals. Patient had normal left-sided filling pressures. Difficult wiring of the PLV branch more consistent with MANAGER OF REVENUE noted. Recommendations were for medical management. Access was from the right radial artery. TR band is in place. Blood pressure 123/74, heart rate 60, pulse ox 100% on room air. Patient remains in sinus rhythm. Laboratory studies this morning revealed creatinine 1.03. Echocardiogram reveals EF of 50 to 55%, mild RV enlargement, no pericardial effusion. Physical examination: Gen: This is a 68-year-old female resting in bed appears to be comfortable and in no acute distress. VS: reviewed HEENT: Head is atraumatic, normocephalic. Pupils equal, round. Sclerae is anicteric. NECK: Supple. No JVD. LUNGS: Clear to auscultation. No wheezes or rhonchi. No intercostal retractions. HEART: Regular rate and rhythm. No murmur. ABDOMEN: Soft No tenderness. EXTREMITIES: No pedal edema. No calf tenderness. NEUROLOGICAL: Patient is awake, alert and oriented x3. Assessment: Non-ST elevated myocardial infarction with plan for medical management Paroxysmal atrial fibrillation presenting with RVR, now in sinus rhythm Coronary artery disease status post NSTEMI with PCI to the distal RCA 01/09/2021 Ischemic cardiomyopathy with initial EF of 35 to 40%, improved Hypertension Hyperlipidemia PFO Stroke without residual defects likely related to A-fib Morbid obesity with BMI of 43 Plan: Continue patient's home cardiac medications Patient may be resumed on Eliquis tomorrow If patient is doing well by this afternoon, she is cleared for discharge from cardiology and will follow-up in the office with Dr. Martinez in 1 week. Nurse practitioner note has been reviewed, I agree with documented findings and plan of care. Patient was seen and examined. Objective - Vital Signs Vital signs: Vital Signs Temp 98.1 F 01/30/24 07:34 Pulse 94 09/25/24 07:34 Resp 16 01/30/24 07:34 BP 135/83 01/30/24 07:34 Pulse Ox 95 01/30/24 07:34 FiO2 Intake & Output 01/29/24 01/30/24 01/30/24 18:59 06:59 18:59 Intake Total 811.882 500 Balance 811.882 500 Weight 117.9 kg Intake: IV 500 Intake, IV Titration 243.882 Amount Heparin Sod,Pork in 0.45% 243.882 NaCl 25,000 unit In 0.45 % NaCl 1 250ml.bag @ 8.82 UNITS/KG/HR 10.002 mls/ hr IV .Q24H CRISTOBAL Rx#: [id number] Oral 568 Other: Voiding Method Toilet Toilet Toilet # Voids 1 - Labs CBC & Chem 7: 01/30/24 06:17 01/30/24 06:17 Labs: Abnormal Lab Results - Last 24 Hours (Table) 01/30/24 01/30/24 Range/Units 06:17 06:17 APTT 52.7 H (22.0-30.0) sec Chloride 108 H (98-107) mmol/L
[2024-01-30 11:50] VITALS: BP 113/54; PULSE 58; RESP 16
--- NOTE | 2024-01-30 17:46 | P.DS ---
Providers Date of admission: 01/28/24 12:13 Expected date of discharge: 01/30/24 Attending physician: Marco Pfeiffer Consults: 01/28/24 11:58 Consult Physician Routine Consulting Provider: Edu Martinez Consult Reason/Comments: known Do you want consulting provider notified?: Yes Primary care physician: [facility] Course: Interval History: This is a 68-year-old female with past medical history significant for atrial fibrillation on Eliquis, history of coronary artery disease status post stents in 2020, history of schema cardiomyopathy with EF of 45%, later on recovered to 50 to 55%, history of CVA with PFO, hypertension, hyperlipidemia who presented to ER with complaint of palpitation for 1 day and elevated blood pressure. Patient stated that she was concerned watching her blood pressure For the last few weeks, as it was high in the office following recent doctor's visit. Patient noted significant palpitations, lightheadedness and felt like her heart was racing in her chest, felt palpitations radiating up to bilateral neck, denied any chest pain, shortness of breath, productive cough, sore throat, fever or chills. In the ED patient was afebrile, was A-fib with RVR with heart rate in the 130s, respiratory rate 18, 98% on room air, blood pressure 161/89. Patient was started on Cardizem drip. CBC was unremarkable. INR 0.9. Sodium 138, potassium 4.6, BUN 18, creatinine 0.99, TSH 2.650. NT proBNP 678. Initial troponin -0.020. Troponin was elevated at 0.157. 01/29/24--patient was seen and examined today. Patient's troponin trended u pwards yesterday, patient has been on heparin drip. Patient denied any chest pain. Heart rate is currently controlled. Patient is currently in normal sinus rhythm. Currently off Cardizem drip. Cardiology following, echocardiogram ordered, plan for cardiac catheterization tomorrow. CBC unremarkable. INR 1.0. BMP unremarkable. January 30, 2024: Patient underwent cardiac catheterization by Dr. Martinez today. Details in his notes. Decision made to follow-up with medical management. Discussed with patient. Patient will follow-up with the primary doctor and piece work checker outpatient. On examination: VITAL SIGNS: [Afebrile, 58, 16, 113 x 54, 98% room air] GENERAL APPEARANCE: Comfortable. HEENT: Normal external appearance of nose and ear. Oral cavity normal EYES: Pupils equal. Conjunctiva normal. NECK: JVD not raised. Mass not palpable. RESPIRATORY: Respiratory effort normal. Lungs clear to auscultation. CARDIOVASCULAR: First and second sounds normal. No edema. ABDOMEN: Soft. Liver and spleen not palpable. No tenderness. No mass palpable. PSYCHIATRY: Alert and oriented x3. Mood and affect normal. INVESTIGATIONS, reviewed in the clinical context: January 29: White count 7 hemoglobin 13.6 platelets 2 1 potassium 4.1 creatinine 1.03 Troponin I 0.157, 0.230 2D echo: EF 50 to 55% Assessment and plan: -Acute non-ST elevation myocardial infarction. Had cardiac catheterization with no intervention. Details in Dr. Martinez's note -Paroxysmal atrial fibrillation, with rapid ventricular rate on presentation. Sinus rhythm Resume Eliquis tomorrow Toprol-XL 25 mg a day -CAD with stent in 2020 Cardiac catheterization this admission -Morbid obesity BMI 43.3 Weight loss measures -Essential hypertension Cozaar 25 mg twice daily. Toprol-XL 25 mg a day -Hyperlipidemia Lipitor -Full code Plan - Discharge Summary Discharge Rx Participant: Yes New Discharge Prescriptions: Continue Acetaminophen Tab [Tylenol] 650 mg PO Q4HR PRN tab PRN Reason: Fever And/ Or Pain Atorvastatin Calcium [Lipitor] 40 mg PO HS Apixaban [Eliquis] 5 mg PO BID Losartan [Cozaar] 25 mg PO BID Nitroglycerin Sl Tabs [Nitrostat] 0.4 mg SL Q5M PRN PRN Reason: Chest Pain Cyanocobalamin [Vitamin B-12] 500 mcg PO DAILY Metoprolol Succinate (ER) [Toprol XL] 25 mg PO DAILY Discharge Medication List Apixaban [Eliquis] 5 mg PO BID 01/09/21 [History] Atorvastatin Calcium [Lipitor] 40 mg PO HS 01/09/21 [History] Cyanocobalamin [Vitamin B-12] 500 mcg PO DAILY 01/04/23 [History] Losartan [Cozaar] 25 mg PO BID 01/04/23 [History] Nitroglycerin Sl Tabs [Nitrostat] 0.4 mg SL Q5M PRN 01/04/23 [History] Acetaminophen Tab [Tylenol] 650 mg PO Q4HR PRN tab 01/11/23 [Rx] Metoprolol Succinate (ER) [Toprol XL] 25 mg PO DAILY 01/28/24 [History] Follow up Appointment(s)/Referral(s): Edu Martinez DO [STAFF PHYSICIAN] - 02/01/24 9:15 am () Porfirio Saenz MD [Primary Care Provider] - 1-2 days Patient Instructions/Handouts: Heart Catheterization (DC), After Radial Heart Catheterization (GEN) Activity/Diet/Wound Care/Special Instructions: Resume Eliquis on Discharge Disposition: HOME WITH HOME HEALTH SERVICES
== END 2024-01-30 15:43 | disposition home health service (06) | DRG 281 ==
LOC: EC 08:27 → 3SCARD 12:13
PROVIDERS: ADMIT Hospitalist; ATTEND Hospitalist
PROC: 4A023N7 Measurement of Cardiac Sampling and Pressure, Left Heart, Percutaneous Approach (ICD-10-PCS; principal; 2024-01-30 07:30)
PROC: B2111ZZ Fluoroscopy of Multiple Coronary Arteries using Low Osmolar Contrast (ICD-10-PCS; principal; 2024-01-30 07:30)
PROC: B2151ZZ Fluoroscopy of Left Heart using Low Osmolar Contrast (ICD-10-PCS; principal; 2024-01-30 07:30)
DX: I21.4 Non-ST elevation (NSTEMI) myocardial infarction (principal); Q21.12 Patent foramen ovale; T82.855A Stenosis of coronary artery stent, initial encounter; Z68.41 Body mass index [BMI] 40.0-44.9, adult; E66.01 Morbid (severe) obesity due to excess calories; I25.10 Atherosclerotic heart disease of native coronary artery without angina pectoris; Z95.5 Presence of coronary angioplasty implant and graft; I25.2 Old myocardial infarction; I25.5 Ischemic cardiomyopathy; I48.0 Paroxysmal atrial fibrillation; E78.5 Hyperlipidemia, unspecified; Z79.01 Long term (current) use of anticoagulants; Z79.899 Other long term (current) drug therapy; Z86.73 Personal history of transient ischemic attack (TIA), and cerebral infarction without residual deficits; Z87.891 Personal history of nicotine dependence; F41.9 Anxiety disorder, unspecified; I10 Essential (primary) hypertension; Y83.1 Surgical operation with implant of artificial internal device as the cause of abnormal reaction of the patient, or of later complication, without mention of misadventure at the time of the procedure
CPT/HCPCS: 36415; 80048; 80053; 83605; 83735; 83880; 84100; 84443; 84484; 85025; 85610; 85730; 93005; 93306; 93458; 94760; 96365; 96366; 96374; 99291

== ENCOUNTER → 2024-07-07 | Outpatient (CLI) | payer MEDICARE ==
--- NOTE | 2024-07-07 09:59 | MR ---
INDICATION: Patient age:Female; 69 years old; Reason for study: R41.3 memory loss; PHH. COMPARISON: None. TECHNIQUE: Multi planar, multi sequence imaging was performed through the brain without the administr ation of intravenous contrast. FINDINGS: The ventricular system and basal cisterns appear unremarkable. Age-appropriate cerebral volume loss. Diffusion-weighted imaging shows no evidence of restricted diffusion to suggest acute/subacute infarc t. Encephalomalacia with gliosis within the right frontal lobe from prior injury. This involves the g ray-white junction with extension into the periventricular white matter. The remaining webber-white matheus ction interface is unremarkable. Intracranial arterial flow voids are maintained. Small anterior falx T1 hyperintense lipoma. Midline structures show no abnormality. Few foci of high T2/FLAIR signal int ensity are seen within the supratentorial subcortical white matter. The susceptibility weighted image s do not reveal any evidence for micro-hemorrhage. The bone marrow signal is within normal limits. The paranasal sinuses and globes are unremarkable. IMPRESSION: 1. No evidence of intracranial mass or acute/subacute infarct. 2. Right frontal lobe region of encephalomalacia from prior injury. 3. Minimal nonspecific white matter changes, likely related to small vessel ischemic disease. [facility], , 07/07/2024 9:56 AM
== END | disposition home or self-care (01) ==
LOC: RADMRIMAIN 09:03
PROVIDERS: ATTEND Psychiatry & Neurology Neurology
DX: G93.89 Other specified disorders of brain (principal); R90.82 White matter disease, unspecified; Z86.73 Personal history of transient ischemic attack (TIA), and cerebral infarction without residual deficits; R41.3 Other amnesia
CPT/HCPCS: 70551

== ENCOUNTER 2024-10-10 02:12 | Emergency (ER) | payer MEDICARE ==
[2024-10-10 02:17] VITALS: TEMP 97.3
--- NOTE | 2024-10-10 02:55 | ED ---
General Adult HPI - General Chief complaint: Arrhythmia/Palpitations Stated complaint: Heart racing Time Seen by Provider: 10/10/24 02:13 Source: patient Mode of arrival: ambulatory Limitations: no limitations - History of Present Illness Initial comments: Dictation was produced using [email or web address] dictation software. please excuse any grammatical, word or spelling errors. Chief Complaint: 69-year-old female with history of A-fib presents to the ER with palpitations History of Present Illness: Patient 69-year-old female presents emergency department for palpitations states she was at home when all of a sudden while sitting she started to have palpitations. She has history of A-fib takes a few medications. States that she has not changed anything in her daily habits. Denies any recent alcohol or caffeine use or stimulants. Denies any chest pain. No shortness of breath. She does take anticoagulation medications. The ROS documented in this emergency department record has been reviewed and confirmed by me. Those systems with pertinent positive or negative responses have been documented in the HPI. All other systems are other negative and/or noncontributory. - Related Data Home Medications Medication Instructions Recorded Confirmed Apixaban [Eliquis] 5 mg PO BID 01/09/21 01/28/24 Atorvastatin Calcium [Lipitor] 40 mg PO HS 01/09/21 01/28/24 Cyanocobalamin [Vitamin B-12] 500 mcg PO DAILY 01/04/23 01/28/24 Losartan [Cozaar] 25 mg PO BID 01/04/23 01/28/24 Nitroglycerin Sl Tabs [Nitrostat] 0.4 mg SL Q5M PRN 01/04/23 01/28/24 Metoprolol Succinate (ER) [Toprol 25 mg PO DAILY 01/28/24 01/28/24 XL] Previous Rx's Medication Instructions Recorded Acetaminophen Tab [Tylenol] 650 mg PO Q4HR PRN tab 01/11/23 Allergies Allergy/AdvReac Type Severity Reaction Status Date / Time No Known Allergies Allergy Verified 10/10/24 02:13 Review of Systems ROS Statement: Those systems with pertinent positive or pertinent negative responses have been documented in the HPI. ROS Other: All systems not noted in ROS Statement are negative. Past Medical History Past Medical History: Atrial Fibrillation, CVA/TIA, GERD/Reflux, Hypertension, Myocardial Infarction ([place]), Skin Disorder Additional Past Medical History / Comment(s): digenerative disc disease,HR skips a beat occas,blisterlike areas scattered that itch. CVA 06/2020 Last Myocardial Infarction Date:: 01/09/21 History of Any Multi-Drug Resistant Organisms: None Reported Past Surgical History: Tonsillectomy, Tubal Ligation Additional Past Surgical History / Comment(s): ganglion cyst removed lt hand, Right total knee Past Anesthesia/Blood Transfusion Reactions: No Reported Reaction Additional Past Anesthesia/Blood Transfusion Reaction / Comment(s): no hx blood transfusion Date of Last Stent Placement:: 01/09/21 Past Psychological History: No Psychological Hx Reported Smoking Status: Former smoker Past Alcohol Use History: None Reported Past Drug Use History: None Reported - Past Family History Mother Family Medical History: CVA/TIA, Hyperlipidemia Father Family Medical History: No Reported History General Exam - General Exam Comments Initial Comments: PHYSICAL EXAM: General Impression: Alert and oriented x3, not in acute distress HEENT: Normocephalic atraumatic, extra-ocular movements intact, pupils equal and reactive to light bilaterally, mucous membranes moist. Cardiovascular: Irregularly irregular Chest: Able to complete full sentences, no retractions, no tachypnea Abdomen: abdomen soft, non-tender, non-distended, no organomegaly Musculoskeletal: Pulses present and equal in all extremities, no peripheral edema Motor: no focal deficits noted Neurological: CN II-XII grossly intact, no focal motor or sensory deficits noted Skin: Intact with no visualized rashes Psych: Normal affect and mood Limitations: no limitations Course Vital Signs 10/10/24 10/10/24 10/10/24 02:13 02:33 03:19 Temperature 97.3 F L Pulse Rate 146 H 130 H 115 H Respiratory 18 18 17 Rate Blood Pressure 161/115 103/68 O2 Sat by Pulse 99 98 97 Oximetry 10/10/24 04:56 Temperature Pulse Rate 129 H Respiratory 17 Rate Blood Pressure 116/95 O2 Sat by Pulse 95 Oximetry EKG Findings - EKG Comments: EKG Findings:: My EKG interpretation: Ventricular rate 124, A-fib with RVR, QRS 107, QTc 364. No VA prolongation, no QTC prolongation, no ST or T-wave changes noted. EKG compared to January 28, 2024 showing no changes. Overall, this EKG is unremarkable Medical Decision Making - Medical Decision Making Was pt. sent in by a medical professional or institution (, PA, POND SUPERVISOR, urgent care, hospital, or intermediate...) When possible be specific @ -No Did you speak to anyone other than the patient for history (EMS, parent, family, police, friend...)? What history was obtained from this source @ -No Did you review nursing and triage notes (agree or disagree)? Why? @ -I reviewed and agree with nursing and triage notes Were old charts reviewed (outside hosp., previous admission, EMS record, old EKG, old radiological studies, urgent care reports/EKG's, intermediate records)? Report findings @ -No old charts were reviewed Differential Diagnosis (chest pain, altered mental status, abdominal pain women, abdominal pain men, vaginal bleeding, musculoskeletal, weakness, fever, dyspnea, syncope, headache, dizziness, GI bleed, back pain, seizure, CVA, palpatations, mental health)? @ - Differential Palpitations: Ventricular arrhythmias, atrial arrhythmias, myocardial infarction, anemia, thyrotoxicosis, electrolyte imbalance, hypokalemia, pulmonary embolism, pulmonary disease, drugs, alcohol, anxiety, stress.... This is not meant to be an all-inclusive list. EKG interpreted by me (3pts min.). @ -See above X-rays interpreted by me (1pt min.). @ -Chest x-ray shows no acute processes CT interpreted by me (1pt min.). @ -None done U/S interpreted by me (1pt. min.). @ -None done What testing was considered but not performed or refused? (CT, X-rays, U/S, labs)? Why? @ -None What meds were considered but not given or refused? Why? @ -None Was smoking cessation discussed for >3mins.? @ -No Were there social determinants of health that impacted care today? How? (Homelessness, low income, unemployed, alcoholism, drug addiction, tr ansportation, low edu. Level, literacy, decrease access to med. care, care home, rehab)? @ -No Was there de-escalation of care discussed even if they declined (Discuss DNR or withdrawal of care, Hospice)? DNR status @ -No What co-morbidities impacted this encounter? (DM, HTN, Smoking, COPD, CAD, Cancer, CVA, ARF, Chemo, Hep., AIDS, mental health diagnosis, sleep apnea, morbid obesity)? @ -History of A-fib Was patient admitted / discharged? Hospital course, mention meds given and route, prescriptions, significant lab abnormalities, going to OR and other pertinent info. @ -69-year-old female presents emergency department palpitations she has a history of A-fib on A-fib medications. Vital signs upon arrival showed heart rate of 146. Rest of vital signs within acceptable limits. Laboratory e valuation is unremarkable. Patient given and metoprolol IV pushes with good rate control. Patient given her home dose of p.o. metoprolol also. Disposition options were discussed patient is agreeable for discharge. Told to follow-up closely dry cleaning checker. Return precautions discussed Did you discuss the management of the patient with other professionals (professionals i.e. , PA, POND SUPERVISOR, lab, RT, psych nurse, social work nurse, glost placer, teacher, flight deck officer, disease case manager)? Give summary @ -No Was critical care preformed (if so, how long)? @ -Yes, 33 minutes Undiagnosed new problem with uncertain prognosis? @ -No Drug Therapy requiring intensive monitoring for toxicity (Heparin, Nitro, Insul in, Cardizem)? @ -No Were any procedures done? @ -No Diagnosis/symptom? Acute, or Chronic, or Acute on Chronic? Uncomplicated (without systemic symptoms) or Complicated (systemic symptoms)? @ -A-fib RVR Side effects of treatment? @ -No Exacerbation, Progression, or Severe Exacerbation? @ -No Poses a threat to life or bodily function? How? (Chest pain, [place], VA, pneumonia, PE, COPD, DKA, ARF, appy, cholecystitis, CVA, Diverticulitis, Homicidal, Suicidal, threat to staff... and all critical care pts) @ -yes - Lab Data Result diagrams: 10/10/24 02:53 10/10/24 02:53 Lab Results 10/10/24 10/10/24 10/10/24 Range/Units 02:53 02:53 02:53 WBC 8.28 (4.50-10.00) 10*3/uL RBC 4.95 (4.10-5.20) 10*6/uL Hgb 14.6 (12.0-15.0) g/dL Hct 44.1 (37.2-46.3) % MCV 89.1 (80.0-97.0) fL MCH 29.5 (27.0-32.0) pg MCHC 33.1 (32.0-37.0) g/dL Plt Count 251 (140-440) 10*3/uL MPV 10.0 (9.5-12.2) fL Immature Gran % (Auto) 0.2 % Neutrophils % 70.0 % Lymphocytes % 18.0 % Monocytes % 10.3 % Eosinophils % 0.8 % Basophils % 0.7 % Immature Gran # 0.02 (0.00-0.04) 10*3/uL Neutrophils # 5.79 (1.80-7.70) 10*3/uL Lymphocytes # 1.49 (0.90-5.00) 10*3/uL Monocytes # 0.85 (0.20-1.00) 10*3/uL Eosinophils # 0.07 (0.04-0.35) 10*3/uL Basophils # 0.06 (0.00-0.10) 10*3/uL PT 10.2 (10.0-12.5) sec INR 0.9 (<1.2) APTT 24.6 (22.0-30.0) sec Sodium 137 (137-145) mmol/L Potassium 4.4 (3.5-5.1) mmol/L Chloride 104 (98-107) mmol/L Carbon Dioxide 24 (22-30) mmol/L Anion Gap 9 mmol/L BUN 21 H (7-17) mg/dL Creatinine 0.97 (0.52-1.04) mg/dL Est GFR (CKD-EPI)AfAm 68 (>60 ml/min/1.73 sqM) Est GFR (CKD-EPI)NonAf 59 (>60 ml/min/1.73 sqM) Glucose 107 H (74-99) mg/dL Calcium 9.7 (8.4-10.2) mg/dL Magnesium 1.9 (1.6-2.3) mg/dL Total Bilirubin 0.7 (0.2-1.3) mg/dL AST 25 (14-36) U/L ALT 16 (4-34) U/L Alkaline Phosphatase 124 (38-126) U/L Troponin I (0.000-0.034) ng/mL Total Protein 6.8 (6.3-8.2) g/dL Albumin 4.0 (3.5-5.0) g/dL 10/10/24 Range/Units 02:53 WBC (4.50-10.00) 10*3/uL RBC (4.10-5.20) 10*6/uL Hgb (12.0-15.0) g/dL Hct (37.2-46.3) % MCV (80.0-97.0) fL MCH (27.0-32.0) pg MCHC (32.0-37.0) g/dL Plt Count (140-440) 10*3/uL MPV (9.5-12.2) fL Immature Gran % (Auto) % Neutrophils % % Lymphocytes % % Monocytes % % Eosinophils % % Basophils % % Immature Gran # (0.00-0.04) 10*3/uL Neutrophils # (1.80-7.70) 10*3/uL Lymphocytes # (0.90-5.00) 10*3/uL Monocytes # (0.20-1.00) 10*3/uL Eosinophils # (0.04-0.35) 10*3/uL Basophils # (0.00-0.10) 10*3/uL PT (10.0-12.5) sec INR (<1.2) APTT (22.0-30.0) sec Sodium (137-145) mmol/L Potassium (3.5-5.1) mmol/L Chloride (98-107) mmol/L Carbon Dioxide (22-30) mmol/L Anion Gap mmol/L BUN (7-17) mg/dL Creatinine (0.52-1.04) mg/dL Est GFR (CKD-EPI)AfAm (>60 ml/min/1.73 sqM) Est GFR (CKD-EPI)NonAf (>60 ml/min/1.73 sqM) Glucose (74-99) mg/dL Calcium (8.4-10.2) mg/dL Magnesium (1.6-2.3) mg/dL Total Bilirubin (0.2-1.3) mg/dL AST (14-36) U/L ALT (4-34) U/L Alkaline Phosphatase (38-126) U/L Troponin I 0.016 (0.000-0.034) ng/mL Total Protein (6.3-8.2) g/dL Albumin (3.5-5.0) g/dL Disposition Clinical Impression: Afib Disposition: HOME SELF-CARE Condition: Fair Instructions (If sedation given, give patient instructions): Heart Palpitations (ED) Is patient prescribed a controlled substance at d/c from ED?: No Referrals: None,Stated [Primary Care Provider] - 1-2 days Time of Disposition: 05:21
[2024-10-10 03:11] LABS: Basophils # (A) 0.06 10*3/uL (0.00-0.10); Basophils % (A) 0.7 %; Eosinophils # (A) 0.07 10*3/uL (0.04-0.35); Eosinophils % (A) 0.8 %; HCT 44.1 % (37.2-46.3); HGB 14.6 g/dL (12.0-15.0); Lymphocytes # (A) 1.49 10*3/uL (0.90-5.00); MCH 29.5 pg (27.0-32.0); MCHC 33.1 g/dL (32.0-37.0); MCV 89.1 fL (80.0-97.0); Monocytes # (A) 0.85 10*3/uL (0.20-1.00); Monocytes % (A) 10.3 %; Neutrophils # (A) 5.79 10*3/uL (1.80-7.70); Platelet Count 251 10*3/uL (140-440); RBC 4.95 10*6/uL (4.10-5.20); RDW 14.9 % (11.5-14.5); WBC 8.28 10*3/uL (4.50-10.00)
[2024-10-10] MEDS: METOPROLOL TARTRATE 5 MG/5 ML VIAL IVP STA ×3 (03:15→05:24)
[2024-10-10 03:20] VITALS: RESP 17
[2024-10-10 03:53] LABS: ALT 16 U/L (4-34); AST 25 U/L (14-36); African American GFR (CKD) 68 (>60 ml/min/1.73 sqM); Alkaline Phosphatase 124 U/L (38-126); Anion Gap 9 mmol/L; Blood Urea Nitrogen 21 mg/dL (7-17); Calcium 9.7 mg/dL (8.4-10.2); Carbon Dioxide 24 mmol/L (22-30); Chloride 104 mmol/L (98-107); Glucose 107 mg/dL (74-99); Magnesium 1.9 mg/dL (1.6-2.3); Non-African American GFR(CKD) 59 (>60 ml/min/1.73 sqM); Potassium 4.4 mmol/L (3.5-5.1); Sodium 137 mmol/L (137-145); Total Bilirubin 0.7 mg/dL (0.2-1.3); Total Protein 6.8 g/dL (6.3-8.2)
[2024-10-10 04:22] LABS: INR 0.9 (<1.2); Partial Thromboplastin Time 24.6 sec (22.0-30.0); Prothrombin Time 10.2 sec (10.0-12.5)
[2024-10-10 05:33] VITALS: BP 106/81
[2024-10-10] MEDS: METOPROLOL SUCCINATE (ER) 25 MG TAB.ER.24H PO STA (05:33)
--- NOTE | 2024-10-10 05:40 | XR ---
EXAMINATION TYPE: XR chest 1V DATE OF EXAM: 10/10/2024 COMPARISON: NONE CLINICAL INDICATION: Female, 69 years old with history of dysrhythmia; TECHNIQUE: Single frontal view of the chest is obtained. FINDINGS: Overlying EKG leads are seen. There is no focal air space opacity, pleural effusion, or pne umothorax seen. Cardiomegaly is noted. The osseous structures are intact. IMPRESSION: Cardiomegaly without acute pulmonary process. [facility], , 10/10/2024 5:38 AM
[2024-10-10 05:48] VITALS: PULSE 92
== END 2024-10-10 05:48 | disposition home or self-care (01) ==
LOC: EC 02:12
DX: I48.91 Unspecified atrial fibrillation (principal); Z79.01 Long term (current) use of anticoagulants; Z87.891 Personal history of nicotine dependence
CPT/HCPCS: 36415; 71045; 80053; 83735; 84484; 85025; 85610; 85730; 93005; 96374; 96376; 99291